=== PATIENT | female | born 1955 | race Caucasian/White ===

== ENCOUNTER 2018-06-28 14:00 | Inpatient (IN) ==
[2018-06-28 14:21] LABS: Basophils % 0.3 %; Eosinophils # 0.3 K/mcL (0.0-0.6); Eosinophils % 2.9 %; Hematocrit 34.7 % (35.3-44.9); Hemoglobin 11.3 g/dL (11.5-15.4); Immature Granulocytes % 0.6 % (0-4); Lymphocytes # 1.8 K/mcL (0.6-4.6); Lymphocytes % 20.8 %; Mean Corpuscular HGB Conc 32.6 g/dL (31.6-35.5); Mean Corpuscular Hemoglobin 29.1 pg (28.0-33.3); Mean Corpuscular Volume 89.4 fL (83.0-100.0); Mean Platelet Volume 8.8 fL (9.4-12.4); Monocytes # 0.8 K/mcL (0.0-1.3); Monocytes % 9.2 %; Neutrophils # 5.8 K/mcL (1.6-8.9); Platelet Count 327 K/mcL (140-400); Red Blood Count 3.88 M/mcL (3.82-4.97); Red Cell Distribution Width 17.2 % (11.5-14.5); Segmented Neutrophils % 66.2 %
[2018-06-28] MEDS ORDERED: *HR* FentaNYL (PF) 100 MCG/2 ML VIAL IVP ONE ×2 (14:30→15:43)
[2018-06-28] MEDS ORDERED: *HR* OxyCODONE Immed Rel 5 MG TABLET PO STA (14:31)
--- NOTE | 2018-06-28 14:41 | Emergency Department Note ---
Disposition Clinical Impression: Fall, Weakness, Humeral fracture Disposition: Admitted As Inpatient Condition: Fair General Adult HPI - General Chief complaint: ED Fall Stated complaint: Fall Time Seen by Provider: 06/28/18 14:03 Source: patient, EMS Limitations: no limitations Nursing Notes Reviewed: Yes Vital Signs Reviewed: Yes - History of Present Illness Pain Scale: 10 - Related Data Home Medications Medication Instructions Recorded Confirmed Apixaban [Eliquis] 5 mg PO BID 06/28/18 06/28/18 Buspirone HCl [Buspar] 15 mg PO BID 06/28/18 06/28/18 Carvedilol 12.5 mg PO BID 06/28/18 06/28/18 Cyclobenzaprine [Flexeril] 10 mg PO BID 06/28/18 06/28/18 HYDROcodone/Acet 7.5/325 mg [[place] 1 tab PO Q6H PRN 06/28/18 06/28/18 7.5-325 mg] LORazepam [Ativan] 1 mg PO BID 06/28/18 06/28/18 Levothyroxine [Synthroid] 50 mcg PO QAM 06/28/18 06/28/18 Lisinopril [Zestril] 5 mg PO DAILY 06/28/18 06/28/18 Pantoprazole Sodium [Protonix] 40 mg PO DAILY 06/28/18 06/28/18 Topiramate [Topamax] 25 mg PO BID 06/28/18 06/28/18 Triamterene/HCTZ 37.5/25mg 1 each PO DAILY 06/28/18 06/28/18 [Dyazide] Venlafaxine [Effexor] 75 mg PO BID 06/28/18 06/28/18 hydrOXYzine HCl [Hydroxyzine HCl] 50 mg PO HS PRN 06/28/18 06/28/18 traZODone [TraZODone] 50 mg PO HS 06/28/18 06/28/18 Allergies Allergy/AdvReac Type Severity Reaction Status Date / Time No Known Allergies Allergy Verified 08/25/17 19:36 Past Medical History - Past Medical History Medical history: Reports: COPD, hypertension, pulmonary embolus Surgical history: Reports: no surgical history Psychiatric history: Reports: no psych history - Social History Smoking Status: 2nd Hand Smoke Exposure Alcohol use: Reports: occasionally, recent Drug use: Reports: none Physical Exam - General Limitations: no limitations General appearance: alert, in no apparent distress Course Vital Signs Temperature 98.4 F 06/28/18 14:03 Pulse Rate 93 06/28/18 14:03 Respiratory Rate 18 06/28/18 14:03 Blood Pressure 127/97 06/28/18 14:03 O2 Sat by Pulse Oximetry 96 06/28/18 14:03 Temperature 98.0 F 06/28/18 19:17 Pulse Rate 84 06/28/18 19:17 Respiratory Rate 17 06/28/18 19:17 Blood Pressure 120/85 06/28/18 19:17 O2 Sat by Pulse Oximetry 95 06/28/18 19:17 Oxygen Delivery Oxygen Delivery Room Air Medical Decision Making - Lab Data Result diagrams: 06/28/18 14:09 06/28/18 14:09 Lab Results 06/28/18 06/28/18 Range/Units 14:09 14:09 WBC 8.8 (4.3-11.1) K/mcL RBC 3.88 (3.82-4.97) M/mcL Hgb 11.3 L (11.5-15.4) g/dL Hct 34.7 L (35.3-44.9) % MCV 89.4 (83.0-100.0) fL MCH 29.1 (28.0-33.3) pg MCHC 32.6 (31.6-35.5) g/dL RDW 17.2 H (11.5-14.5) % Plt Count 327 (140-400) K/mcL MPV 8.8 L (9.4-12.4) fL Immature Gran % 0.6 (0-4) % Seg Neutrophils % 66.2 % Lymphocytes % 20.8 % Monocytes % 9.2 % Eosinophils % 2.9 % Basophils % 0.3 % Neutrophils # 5.8 (1.6-8.9) K/mcL Lymphocytes # 1.8 (0.6-4.6) K/mcL Monocytes # 0.8 (0.0-1.3) K/mcL Eosinophils # 0.3 (0.0-0.6) K/mcL Basophils # 0.0 (0.0-0.2) K/mcL Sodium 128 L (136-145) mEq/L Potassium 3.3 L (3.5-5.1) mEq/L Chloride 96 L (98-107) mEq/L Carbon Dioxide 20 L (23-29) mEq/L BUN 5 L (8-23) mg/dL Creatinine 0.61 (0.60-1.20) mg/dL Est GFR ( Amer) > 60 (> 60) Est GFR (Non-Af Amer) > 60 (> 60) BUN/Creatinine Ratio 8 (6-26) Glucose 113 H (70-105) mg/dL Calculated Osmolality 264 L (280-300) Calcium 9.1 (8.6-10.3) mg/dL Troponin I < 0.03 (< 0.04) ng/mL Attestation Statement - Attestation Attestation: Resident Attestation: I examined this patient and my medical decision making was reviewed with the Resident Physician. I agree with the documented findings, disposition and treatment plan as described except to the extent set forth below. We independently had [id number] contact with the patient. Patient presents today for evaluation after fall. Patient with obvious left shoulder deformity. States that she has been dizzy after taking her blood pressure medications but concerned because her primary care physician wants her to continue taking them. She states she had 1-1/2 beers today. The patient will undergo further workup for both near syncope as well as fall and trauma to the arm. Patient has moderate amounts of pain secondary to obvious left shoulder deformity. No other evidence of trauma. Lungs clear to auscultation bilaterally. X-ray shows humeral shaft fracture with angulation. I did discussed with orthopedics who recommends coaptation splint. This was splinted by both me and the resident with the use of 75 mg of fentanyl for pain control. Patient tolerated splinting well. Was really evaluated afterwards and was neurovascularly intact with intact men's designer strength as well as radial pulse, cap refill, sensation equal bilaterally. Please see resident note for further details and disposition.
[2018-06-28 14:48] LABS: BUN/Creatinine Ratio 8 (6-26); Blood Urea Nitrogen 5 mg/dL (8-23); Calcium 9.1 mg/dL (8.6-10.3); Carbon Dioxide 20 mEq/L (23-29); Chloride 96 mEq/L (98-107); Glucose 113 mg/dL (70-105); Osmolality,Calculated 264 (280-300); Potassium 3.3 mEq/L (3.5-5.1); Sodium 128 mEq/L (136-145); eGFR For Non-African Americans > 60 (> 60)
[2018-06-28 14:49] LABS: Troponin I < 0.03 ng/mL (< 0.04)
--- NOTE | 2018-06-28 14:56 | Emergency Department Note ---
Disposition Clinical Impression: Weakness Fall Qualifiers: Encounter type: initial encounter Qualified Code(s): W19.XXXA - Unspecified fall, initial encounter Humeral fracture Qualifiers: Encounter type: initial encounter Humerus Location: shaft Fracture type: closed Fracture morphology: unspecified fracture morphology Laterality: left Qualified Code(s): S42.302A - Unspecified fracture of shaft of humerus, left arm , initial encounter for closed fracture Disposition: Admitted As Inpatient Condition: Fair Forms: ED Satisfaction Letter General Adult HPI - General Chief complaint: ED Fall Stated complaint: Fall Time Seen by Provider: 06/28/18 14:03 Source: patient, EMS Mode of arrival: EMS Limitations: no limitations Nursing Notes Reviewed: Yes Vital Signs Reviewed: Yes - History of Present Illness HPI Narrative: 62-year-old female presenting to the emergency department with chief complaint of fall. According to the patient she stood up and started walking she grabbed a banister lost her footing, felt weak and fell. She denies hitting her head although she has an obvious ecchymosis on the left frontal area. Patient states her only complaint is left shoulder pain. She denies any abdominal pain , dizziness, headache. Patient states she is on anticoagulation. Patient did disclose to EMS that she had one and a half beers today. Patient denies any chest pain, shortness of breath before the incident. She states she has had multiple episodes of feeling weak due to her blood pressure medications. She states her primary care physician is aware of this and has not decreased her medications. Pain Scale: 10 - Related Data Previous Rx's Medication Instructions Recorded Famotidine [Pepcid] 20 mg PO BID #30 tablet 08/25/17 Ferrous Gluconate 324 mg PO BID #60 tablet 08/25/17 Allergies Allergy/AdvReac Type Severity Reaction Status Date / Time No Known Allergies Allergy Verified 08/25/17 19:36 All systems ED: reviewed and negative except as stated. Constitutional: Reports: weakness. Denies: fever, chills Eyes: Reports: as per HPI ENT ED: Reports: as per HPI Cardiovascular: Denies: chest pain, palpitations, dyspnea on exertion Respiratory: Denies: cough, dyspnea, wheezes Gastrointestinal: Denies: abdominal pain, nausea, vomiting Genitourinary: Reports: as per HPI Musculoskeletal: Reports: arthralgia, myalgia Integumentary: Reports: other (ecchymosis) Neurological: Reports: weakness. Denies: numbness, paresthesias Psychiatric: Reports: as per HPI Endocrine: Reports: as per HPI Hematological/Lymphatic: Reports: as per HPI Allergic/Immunologic: Reports: as per HPI Past Medical History - Past Medical History Attestation: Yes The following information was validated with the patient. Medical history: Reports: COPD, hypertension, pulmonary embolus Surgical history: Reports: no surgical history Psychiatric history: Reports: no psych history - Social History Smoking Status: 2nd Hand Smoke Exposure Alcohol use: Reports: occasionally, recent Drug use: Reports: none Physical Exam - General Limitations: no limitations General appearance: alert, in no apparent distress - Head Head exam: normocephalic, other (Hematoma noted over the left frontal area) - Eye Eye exam: Present: normal appearance, PERRL, EOMI. Absent: scleral icterus, conjunctival injection - ENT ENT exam: normal exam, mucous membranes moist - Neck Neck exam: Present: normal inspection, full ROM. Absent: tenderness, meningismus - Chest Chest inspection: Present: normal inspection, symmetric chest wall rise. Absent : tenderness, rash - Respiratory Respiratory exam: Present: normal lung sounds bilaterally. Absent: respiratory distress, wheezes - Cardiovascular Cardiovascular exam: Present: regular rate, normal rhythm, normal heart sounds - Abdominal Exam Abdominal exam: Present: soft, Non-Tender. Absent: distention, guarding, rebound - Extremities Exam Extremities exam: Present: other (Patient's left upper extremity tenderness to palpation from the shoulder all the way to the wrist. Bilateral upper extremities neurovascularly intact. Patient able to wiggle fingers on both sides.) - Neurological Exam Neurological exam: Present: alert - Psychiatric Psychiatric exam: Present: normal affect, normal mood - Skin Skin exam: Present: warm Course Course Narrative: 62-year-old female presenting after a fall. She states she felt weakness before the fall. She denies hitting her head although the patient does have a hematoma on the left frontal area. She currently is on anticoagulation. Patient also stating she has severe left arm pain. At this time we will obtain a CT of the head and cervical spine. We will also obtain x-rays of the left upper extremity. No other areas of tenderness on exam. We will obtain basic laboratory analysis along with an EKG and a troponin due to patient's weakness before the fall. Disposition pending results. Patient is alert and oriented 3 in the room with stable vital signs. Patient agrees with this plan. - Reevaluation(s) Reevaluation #1: Laboratory analysis so chronic hyponatemia. Also hypokalemia. We will replete orally. Otherwise labs WNL. Patient's radiographs show Angulated fracture of the midshaft of the left humerus. No acute abnormalities seen in the left wrist I spoke with the orthopedic surgeon industrial methods consultant Dr. Hitchcock who would like us to place a coadaptation splint on the patient. He will consult on the patient as well while she is admitted. At this time we will plan to splint the left arm and admit her for further evaluation. Patient remains alert and oriented x 3 with stable vital signs. Patient agrees with this plan. I spoke with the hospitalist industrial methods consultant Dr. Yun who agrees to accept the patient at this time. Vital Signs Temperature 98.4 F 06/28/18 14:03 Pulse Rate 93 06/28/18 14:03 Respiratory Rate 18 06/28/18 14:03 Blood Pressure 127/97 06/28/18 14:03 O2 Sat by Pulse Oximetry 96 06/28/18 14:03 Temperature 98.4 F 06/28/18 14:03 Pulse Rate 100 06/28/18 15:37 Respiratory Rate 16 06/28/18 15:37 Blood Pressure 115/73 06/28/18 15:37 O2 Sat by Pulse Oximetry 96 06/28/18 15:37 Oxygen Delivery Oxygen Delivery Room Air Medical Decision Making - Lab Data Result diagrams: 06/28/18 14:09 06/28/18 14:09 Lab Results 06/28/18 06/28/18 Range/Units 14:09 14:09 WBC 8.8 (4.3-11.1) K/mcL RBC 3.88 (3.82-4.97) M/mcL Hgb 11.3 L (11.5-15.4) g/dL Hct 34.7 L (35.3-44.9) % MCV 89.4 (83.0-100.0) fL MCH 29.1 (28.0-33.3) pg MCHC 32.6 (31.6-35.5) g/dL RDW 17.2 H (11.5-14.5) % Plt Count 327 (140-400) K/mcL MPV 8.8 L (9.4-12.4) fL Immature Gran % 0.6 (0-4) % Seg Neutrophils % 66.2 % Lymphocytes % 20.8 % Monocytes % 9.2 % Eosinophils % 2.9 % Basophils % 0.3 % Neutrophils # 5.8 (1.6-8.9) K/mcL Lymphocytes # 1.8 (0.6-4.6) K/mcL Monocytes # 0.8 (0.0-1.3) K/mcL Eosinophils # 0.3 (0.0-0.6) K/mcL Basophils # 0.0 (0.0-0.2) K/mcL Sodium 128 L (136-145) mEq/L Potassium 3.3 L (3.5-5.1) mEq/L Chloride 96 L (98-107) mEq/L Carbon Dioxide 20 L (23-29) mEq/L BUN 5 L (8-23) mg/dL Creatinine 0.61 (0.60-1.20) mg/dL Est GFR ( Amer) > 60 (> 60) Est GFR (Non-Af Amer) > 60 (> 60) BUN/Creatinine Ratio 8 (6-26) Glucose 113 H (70-105) mg/dL Calculated Osmolality 264 L (280-300) Calcium 9.1 (8.6-10.3) mg/dL Troponin I < 0.03 (< 0.04) ng/mL
[2018-06-28] MEDS ORDERED: Naloxone 0.4 MG/ML INJ IVP PRN ×2 (16:26→16:30)
[2018-06-28] MEDS ORDERED: 0.9 % Sodium Chloride 1,000 ML IVC SCH (16:30)
[2018-06-28] MEDS ORDERED: traMADol 50 MG TABLET PO PRN (16:30)
[2018-06-28] MEDS ORDERED: Acetaminophen 325 MG TABLET PO PRN (16:30)
--- NOTE | 2018-06-28 16:47 | Internal Med History&Physical ---
Date of Encounter: 06/28/18 Time of Encounter: 18:00 Internal Medicine - H&P: HPI History of present illness: Ms. Tellez is a 62 year old female with history of COPD, HTN, pulmonary embolism on Eliquis presented for fall. Patient stated that she was walking and turned quickly then became dizzy and passed out. She denies hitting her head. She denies any headache, change in vision, nausea/vomiting, diaphoresis, loss of bladder control, chest pain, shortness of breath. She fell on her left shoulder. She is on several ACID TANK LINER depressant medications but states she has not had any medication changes since March. In the ED she was found to have serum sodium low at 128, which was the same level she had one year ago. Chloride was also low at 96. Troponin was negative. CT of head without contrast showed no acute findings. An x-rays of the left arm showed an angulated fracture of the midshaft of the left humerus. A splint was placed on her arm and Orthopedic Surgery was consulted. Past Med Surg Social Fam HX - Past Medical History Medical history: COPD, hypertension, pulmonary embolus Psychiatric history: no psych history - Past Surgical History Surgical History: no surgical history - Social History Smoking Status: 2nd Hand Smoke Exposure Alcohol use: occasionally, recent Drug use: none - Family History Mother Hx Family Cancer: Yes (skin) Internal Medicine - H&P: Meds Apixaban [Eliquis] 5 mg PO BID 06/28/18 [History] Buspirone HCl [Buspar] 15 mg PO BID 06/28/18 [History] Carvedilol 12.5 mg PO BID 06/28/18 [History] Cyclobenzaprine [Flexeril] 10 mg PO BID 06/28/18 [History] HYDROcodone/Acet 7.5/325 mg [[place] 7.5-325 mg] 1 tab PO Q6H PRN 06/28/18 [ History] LORazepam [Ativan] 1 mg PO BID 06/28/18 [History] Levothyroxine [Synthroid] 50 mcg PO QAM 06/28/18 [History] Lisinopril [Zestril] 5 mg PO DAILY 06/28/18 [History] Pantoprazole Sodium [Protonix] 40 mg PO DAILY 06/28/18 [History] Topiramate [Topamax] 25 mg PO BID 06/28/18 [History] Triamterene/HCTZ 37.5/25mg [D[place]az[place]] 1 each PO DAILY 06/28/18 [History] Venlafaxine [Effexor] 75 mg PO BID 06/28/18 [History] hydrOXYzine HCl [Hydroxyzine HCl] 50 mg PO HS PRN 06/28/18 [History] traZODone [TraZODone] 50 mg PO HS 06/28/18 [History] 3 Allergy/AdvReac Type Severity Reaction Status Date / Time No Known Allergies Allergy Verified 08/25/17 19:36 All Systems PM: A 10-system review of systems was performed and is negative for pertinent findings except as documented above in the HPI. - Constitutional Vitals: Temp Pulse Resp BP Pulse Ox 98.4 F 100 16 115/73 96 06/28/18 14:03 06/28/18 15:37 06/28/18 15:37 06/28/18 15:37 06/28/18 15:37 General appearance: Present: A&O X 3, obese Exam: . - Head Head exam: Present: atraumatic, normocephalic - Eye Eye exam: Present: PERRL, conjuntiva pink, sclera anicteric Pupils: Present: PERRL - Neck Neck exam general surgery: Present: supple, trachea midline. Absent: lymphadenopathy - Respiratory Respiratory exam: Present: CTAB. Absent: accessory muscle use, rales, rhonchi, wheezes - Cardiovascular Cardiovascular exam: Present: RRR, +S1, +S2. Absent: diastolic murmur, gallop, rubs, systolic murmur - GI/Abdominal GI/Abdominal exam: Present: normal bowel sounds, soft, no peritoneal signs. Absent: distended, tenderness - Extremities Exam Extremities exam: Present: warm, radial pulses palpable and symmetrical. Absent : calf tenderness, cyanotic, pedal edema Additional comments: Left arm in splint, normal sensation of fingers, no edema, ROM normal. - Neurological Exam Neurological exam: Present: CN II-XII intact, oriented X3, no focal deficits. Absent: pronater drift, facial droop, speech deficit - Skin Skin exam: Present: dry, intact Internal Med - H&P Results - Labs CBC & Chem 7: 06/28/18 14:09 06/28/18 14:09 - Assessment and plan (1) Syncope Current Visit: Yes Status: Acute Assessment and plan: This could be multifactorial likely from hyponatremia and polypharmacy. Sodium is 128, unsure what her baseline is but her serum sodium one year ago was 128 as well. She takes many ACID TANK LINER depressant medications as well. CT head was negative for acute process, troponin negative. She is currently asymptomatic. There is low suspicion for PE as he is not hypoxic, no dyspnea, and no tachypnea , she takes Eliquis at home. - Echocardiogram - Carotid ultrasound - Monitor on telemetry - Orthostatic vital signs - Gentle IV fluid hydration and recheck sodium levels in AM. Will not try to overcorrect too fast since she may be a chronic hyponatremic patient. Qualifiers: Syncope type: unspecified Qualified Code(s): R55 - Syncope and collapse (2) Hypertension Current Visit: Yes Status: Acute Assessment and plan: Resume Coreg Hold triamterene/HCTZ due to hyponatremia Will need PRN medication since HCTZ needs held Qualifiers: Hypertension type: essential hypertension Qualified Code(s): I10 - Essential (primary) hypertension (3) History of pulmonary embolism Current Visit: Yes Status: Acute Assessment and plan: Will need to hold Eliquis in case surgery needs done. If no surgery needs done then resume Eliquis. Will start heparin 5,000 units SQ Q8H for now. (4) Hyponatremia Current Visit: Yes Status: Acute Assessment and plan: Likely from multiple medications that may cause hyponatremia. Cannot excluse acute hyponatremia Will obtain urine studies and also give gentle IV hydration with normal saline at 75 ml/hr and recheck in AM. Will hold trazodone and hold HCTZ/Triamterine. May need to continue Topamax since she takes this regularly and continue the antidepressants to avoid withdrawal. (5) Humeral fracture Current Visit: Yes Status: Acute Assessment and plan: Patient splinted in ED. Orthopedic Surgery consulted, recommendations appreciated Continue pain management Qualifiers: Encounter type: initial encounter Humerus Location: shaft Fracture type: closed Fracture morphology: unspecified fracture morphology Laterality: left Qualified Code(s): S42.302A - Unspecified fracture of shaft of humerus, left arm, initial encounter for closed fracture (6) Weakness Current Visit: Yes Status: Acute Assessment and plan: PT/OT when able. (7) DVT prophylaxis Current Visit: Yes Status: Acute Assessment and plan: Heparin 5,000 units Q8H. If no planned surgery, then will restart Eliquis. - Time Spent With Patient Total time spent is greater than 50% in coordination of care (as documented) at patient's floor/unit and/or counseling patient:
[2018-06-28 21:01] LABS: Creatinine,Urine 112 mg/dL; Sodium, Urine < 10.0 mEq/L
[2018-06-28] MEDS: *HR* Heparin 5,000 UNIT/ML VIAL SQ SCH (21:08)
[2018-06-28] MEDS: Topiramate 25 MG TABLET PO SCH (21:08)
[2018-06-28] MEDS: OXYCODONE Oral CONC 10 MG/0.5 ML ORAL.SYG SL PRN (21:09)
[2018-06-28] MEDS: *HR* LORazepam 1 MG TABLET PO SCH (21:09)
[2018-06-29 01:02] LABS: Basophils % 0.3 %; Eosinophils # 0.1 K/mcL (0.0-0.6); Eosinophils % 1.8 %; Hematocrit 33.3 % (35.3-44.9); Hemoglobin 10.8 g/dL (11.5-15.4); Immature Granulocytes % 0.3 % (0-4); Lymphocytes # 1.5 K/mcL (0.6-4.6); Lymphocytes % 19.7 %; Mean Corpuscular HGB Conc 32.4 g/dL (31.6-35.5); Mean Corpuscular Hemoglobin 28.9 pg (28.0-33.3); Monocytes # 0.7 K/mcL (0.0-1.3); Platelet Count 297 K/mcL (140-400); Red Blood Count 3.74 M/mcL (3.82-4.97); Red Cell Distribution Width 17.2 % (11.5-14.5); Segmented Neutrophils % 67.9 %
[2018-06-29 01:21] LABS: BUN/Creatinine Ratio 11 (6-26); Blood Urea Nitrogen 6 mg/dL (8-23); Calcium 8.9 mg/dL (8.6-10.3); Carbon Dioxide 22 mEq/L (23-29); Chloride 98 mEq/L (98-107); Glucose 115 mg/dL (70-105); Osmolality,Calculated 265 (280-300); Potassium 3.8 mEq/L (3.5-5.1); Sodium 128 mEq/L (136-145); eGFR For Non-African Americans > 60 (> 60)
[2018-06-29] MEDS: *HR* Heparin 5,000 UNIT/ML VIAL SQ SCH ×2 (05:25→14:52)
[2018-06-29] MEDS: OXYCODONE Oral CONC 10 MG/0.5 ML ORAL.SYG SL PRN ×3 (05:26→23:52)
--- NOTE | 2018-06-29 06:43 | Orthopedic Consult Note ---
Date of Encounter: 06/29/18 Time of Encounter: 06:42 History of Present Illness HPI: Ms. Tellez is a 62 year old female Status post fall yesterday in the left arm, patient is right-hand dominant. Patient admitted with a displaced left humeral shaft fracture. Physical exam Alert and oriented 3 Left upper extremity In splint Neurovascular intact distally X-rays reviewed show displaced fracture, recommendation left humerus open reduction internal fixation. We reviewed the risks and benefits as well as recovery. All questions were answered. The patient agreed to this treatment plan and appeared to understand the plan is reviewed. Past Med Surg Social Fam HX - Past Medical History Medical history: COPD, hypertension, pulmonary embolus Additional medical history: tachycardia Psychiatric history: no psych history - Past Surgical History Surgical History: no surgical history Additional surgical history: Tonsillectomy - Social History Smoking Status: 2nd Hand Smoke Exposure Smokeless Tobacco Status: No Alcohol use: occasionally, recent Drug use: none - Family History Mother Hx Family Cancer: Yes (skin) Medications and Allergies Apixaban [Eliquis] 5 mg PO BID 06/28/18 [History] Buspirone HCl [Buspar] 15 mg PO BID 06/28/18 [History] Carvedilol 12.5 mg PO BID 06/28/18 [History] Cyclobenzaprine [Flexeril] 10 mg PO BID 06/28/18 [History] HYDROcodone/Acet 7.5/325 mg [[place] 7.5-325 mg] 1 tab PO Q6H PRN 06/28/18 [ History] LORazepam [Ativan] 1 mg PO BID 06/28/18 [History] Levothyroxine [Synthroid] 50 mcg PO QAM 06/28/18 [History] Lisinopril [Zestril] 5 mg PO DAILY 06/28/18 [History] Pantoprazole Sodium [Protonix] 40 mg PO DAILY 06/28/18 [History] Topiramate [Topamax] 25 mg PO BID 06/28/18 [History] Triamterene/HCTZ 37.5/25mg [Dyazide] 1 each PO DAILY 06/28/18 [History] Venlafaxine [Effexor] 75 mg PO BID 06/28/18 [History] hydrOXYzine HCl [Hydroxyzine HCl] 50 mg PO HS PRN 06/28/18 [History] traZODone [TraZODone] 50 mg PO HS 06/28/18 [History] 3 Allergy/AdvReac Type Severity Reaction Status Date / Time No Known Allergies Allergy Verified 08/25/17 19:36 All Systems Reviewed: The remainder of the systems were reviewed and are negative Physical Exam - Constitutional Vitals: Temp Pulse Resp BP Pulse Ox 98.0 F 105 16 136/97 95 06/29/18 04:17 06/29/18 04:17 06/29/18 04:17 06/29/18 04:17 06/29/18 04:17 Results - Labs Result Diagrams: 06/29/18 00:43 06/29/18 00:43 Labs: Abnormal lab results RBC 3.74 M/mcL (3.82-4.97) L 06/29/18 00:43 Hgb 10.8 g/dL (11.5-15.4) L 06/29/18 00:43 Hct 33.3 % (35.3-44.9) L 06/29/18 00:43 RDW 17.2 % (11.5-14.5) H 06/29/18 00:43 MPV 9.0 fL (9.4-12.4) L 06/29/18 00:43 Sodium 128 mEq/L (136-145) L 06/29/18 00:43 Carbon Dioxide 22 mEq/L (23-29) L 06/29/18 00:43 BUN 6 mg/dL (8-23) L 06/29/18 00:43 Creatinine 0.57 mg/dL (0.60-1.20) L 06/29/18 00:43 Glucose 115 mg/dL (70-105) H 06/29/18 00:43 Calculated Osmolality 265 (280-300) L 06/29/18 00:43 H & H 06/29/18 Range/Units 00:43 Hgb 10.8 L (11.5-15.4) g/dL Hct 33.3 L (35.3-44.9) % All other labs normal. Consult Discharge Plan - Plan Referrals: Conner San MD [Primary Care Provider] - Ignacio Pandey [Family Provider] -
[2018-06-29] MEDS: *HR* LORazepam 1 MG TABLET PO SCH ×3 (12:34→22:55)
[2018-06-29] MEDS: Topiramate 25 MG TABLET PO SCH ×2 (12:34→22:55)
--- NOTE | 2018-06-29 13:05 | Anesthesia Evaluation PreOp ---
Date of Encounter: 06/29/18 Time of Encounter: 12:58 - Past History Planned Operation: ORIF Left Proximal Humerus Cardiac History: Other (Hx PE) Pulmonary History: COPD, Other (HX PE) CHIEF MINISTER History: Denies Any Significant HX Other Medical History: Denies Any Significant HX Anesthesia History: No Prior Anesthetic Complications, Past Anesthesia (none) : No Alcohol Use: occasionally, recent Drug use: none Medications and Allergies Apixaban [Eliquis] 5 mg PO BID 06/28/18 [History] Buspirone HCl [Buspar] 15 mg PO BID 06/28/18 [History] Carvedilol 12.5 mg PO BID 06/28/18 [History] Cyclobenzaprine [Flexeril] 10 mg PO BID 06/28/18 [History] HYDROcodone/Acet 7.5/325 mg [[place] 7.5-325 mg] 1 tab PO Q6H PRN 06/28/18 [ History] LORazepam [Ativan] 1 mg PO BID 06/28/18 [History] Levothyroxine [Synthroid] 50 mcg PO QAM 06/28/18 [History] Lisinopril [Zestril] 5 mg PO DAILY 06/28/18 [History] Pantoprazole Sodium [Protonix] 40 mg PO DAILY 06/28/18 [History] Topiramate [Topamax] 25 mg PO BID 06/28/18 [History] Triamterene/HCTZ 37.5/25mg [Dyazide] 1 each PO DAILY 06/28/18 [History] Venlafaxine [Effexor] 75 mg PO BID 06/28/18 [History] hydrOXYzine HCl [Hydroxyzine HCl] 50 mg PO HS PRN 06/28/18 [History] traZODone [TraZODone] 50 mg PO HS 06/28/18 [History] 3 Allergy/AdvReac Type Severity Reaction Status Date / Time No Known Allergies Allergy Verified 08/25/17 19:36 - Meds/Allergy Pre-op Review Medications Reviewed: Yes Allergies Reviewed: Yes Beta Blockers on Current Med List: Yes If Beta Blockers taken, Date/Time (Last Dose taken): 08:41 06/29/2018 Anesthesia Results - Labs 06/29/18 00:43 06/29/18 00:43 - Imaging EKG: report reviewed (SR) Anesthesia Exam Vital Signs/O2 Sat, Most Current Temp Pulse Resp BP Pulse Ox 97.6 F 94 16 115/79 93 06/29/18 11:14 06/29/18 11:14 06/29/18 11:14 06/29/18 11:14 06/29/18 11:14
--- NOTE | 2018-06-29 14:59 | Internal Med Progress Note ---
Hospitalist Progress Note - Encounter Date of Encounter: 06/29/18 Time of Encounter: 16:34 - Subjective Interval History: No acute events overnight. - Exam Vitals: Temp Pulse Resp BP Pulse Ox 97.8 F 99 18 110/75 95 06/29/18 14:44 06/29/18 14:44 06/29/18 14:44 06/29/18 14:44 06/29/18 14:44 Exam: Gen: NAD CVS: RRR Lungs: CTAB Ext: left arm in splint, normal sensation of fingers, no edema, ROM normal. - Assessment and Plan (1) Syncope Current Visit: Yes Status: Acute Assessment and Plan: This could be multifactorial likely from hyponatremia and polypharmacy. Sodium is 128, unsure what her baseline is but her serum sodium one year ago was 128 as well. 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 CT head was negative for acute process, troponin negative. She is currently asymptomatic. There is low suspicion for PE as he is not hypoxic, no dyspnea, and no tachypnea , she takes Eliquis at home. Rechecking Sodium today looks stable at 128 likely this is chronic. - Echocardiogram - Normal LVEF 60-65%, no valvular abnormalities, normal LV chamber size, thickness and function. - Carotid ultrasound - Negative - Monitor on telemetry - no abnormal rhythms noted - Orthostatic vital signs (2) Hypertension Current Visit: Yes Status: Acute Assessment and Plan: Resume Coreg Hold triamterene/HCTZ due to hyponatremia Will need PRN medication since HCTZ needs held Sodium 128 on admission and today is 128 despite IV fluid, suggesting chronic. As well as prior labs showing similar sodium levels. (3) History of pulmonary embolism Current Visit: Yes Status: Acute Assessment and Plan: Will need to hold Eliquis because of anticipated upcoming surgery. Will start heparin 5,000 units SQ Q8H for now. (4) Hyponatremia Current Visit: Yes Status: Acute Assessment and Plan: Likely from multiple medications that may cause hyponatremia. Cannot excluse acute hyponatremia Will obtain urine studies and also give gentle IV hydration with normal saline at 75 ml/hr and recheck in AM. Will hold trazodone and hold HCTZ/Triamterine. May need to continue Topamax since she takes this regularly and continue the antidepressants to avoid withdrawal. (5) Humeral fracture Current Visit: Yes Status: Acute Assessment and Plan: Patient splinted in ED. Orthopedic Surgery consulted, recommendations appreciated Continue pain management Reviewed echocardiogram, discussed METS with patient, evaluated surgical risk: Patient is clear for surgery (6) Weakness Current Visit: Yes Status: Acute Assessment and Plan: PT/OT when able. (7) DVT prophylaxis Current Visit: Yes Status: Acute Assessment and Plan: Heparin 5,000 units Q8H. If no planned surgery, then will restart Eliquis. - Time Spent with Patient Total time spent is greater than 50% in coordination of care (as documented) at patient's floor/unit and/or counseling patient: Internal Medicine: Result - Labs CBC & Chem 7: 06/29/18 00:43 06/29/18 00:43 Labs: Short CBC 06/29/18 Range/Units 00:43 WBC 7.4 (4.3-11.1) K/mcL Hgb 10.8 L (11.5-15.4) g/dL Hct 33.3 L (35.3-44.9) % Plt Count 297 (140-400) K/mcL Neutrophils # 5.0 (1.6-8.9) K/mcL BMP 06/29/18 00:43 Sodium 128 L Potassium 3.8 Chloride 98 Carbon Dioxide 22 L BUN 6 L Creatinine 0.57 L Glucose 115 H Calcium 8.9 - Impressions Impressions Echocardiogram 06/29/18 18:25 Impressions: Technically sub-optimal due to poor echocardiographic windows. LVEF 60-65%. Normal LV chamber size, wall thickness and function. Indeterminate diastolic function. Normal right ventricular structure and function. Unable to estimate RVSP due to lack of TR jet. No significant valvular dysfunction. Left Ventricular Wall Motion: Rest Echo Findings All wall segments showed normal motion. Findings: Study Quality * Technically sub-optimal due to poor echocardiographic windows. ECG Findings * Probable normal sinus rhythm. Left Ventricle * LVEF 60-65%. * Normal LV chamber size, wall thickness and function. * Indeterminate diastolic function. Right Ventricle * Normal right ventricular structure and function. Right Atrium * Mildly dilated right atrium. Aortic Valve * Aortic valve not well visualized. * No aortic regurgitation. * No aortic stenosis. Mitral Valve * Normal mitral valve structure and function. * No mitral regurgitation. * No mitral stenosis. Tricuspid Valve * Normal tricuspid valve structure and function. * No tricuspid regurgitation. * Unable to estimate RVSP due to lack of TR jet. Pulmonic Valve * Pulmonic valve is not well visualized. Aorta * Normally sized aortic root. Pericardium * The pericardium appears normal. IVC * Normal IVC dimensions and inspiratory collapse. Pulmonary Artery * Normal visualized portions of the main pulmonary artery. Left Atrium * Mildly dilated left atrium. Consult Discharge Plan - Plan Referrals: Conner San MD [Primary Care Provider] - Ignacio Pandey [Family Provider] - (1) Syncope Qualifiers: Syncope type: unspecified Qualified Code(s): R55 - Syncope and collapse (2) Hypertension Qualifiers: Hypertension type: essential hypertension Qualified Code(s): I10 - Essential (primary) hypertension (5) Humeral fracture Qualifiers: Encounter type: initial encounter Humerus Location: shaft Fracture type: closed Fracture morphology: unspecified fracture morphology Laterality: left Qualified Code(s): S42.302A - Unspecified fracture of shaft of humerus, left arm , initial encounter for closed fracture
[2018-06-29] MEDS ORDERED: *HR* FentaNYL (PF) 100 MCG/2 ML VIAL ONE (17:34)
[2018-06-29] MEDS ORDERED: *HR* Midazolam HCl 2 MG/2 ML VIAL ONE (17:34)
[2018-06-29] MEDS ORDERED: Lidocaine -MPF 2% 2 ML VIAL ONE (17:34)
[2018-06-29] MEDS ORDERED: *HR* Succinylcholine 200 MG/10 ML VIAL IVP ONE (17:34)
[2018-06-29] MEDS ORDERED: *HR* Propofol 200 MG/20 ML VIAL IVP ONE (17:35)
[2018-06-29] MEDS ORDERED: ROPIVACAINE HCL/PF 0.5% 30 ML VIAL ONE (17:36)
[2018-06-29] MEDS ORDERED: Ondansetron 4 MG/2 ML VIAL ONE (18:13)
[2018-06-29] MEDS ORDERED: Dexamethasone 4 MG/ML VIAL ONE (18:13)
[2018-06-29] MEDS ORDERED: *HR* OxyCODONE Immed Rel 5 MG TABLET PO PRN (18:34)
[2018-06-29] MEDS ORDERED: Acetaminophen IV 1,000 MG/100 ML INFUS..BTL IVPB ONE (18:34)
[2018-06-29] MEDS ORDERED: Ondansetron 4 MG/2 ML VIAL IVP ONE (18:34)
[2018-06-29] MEDS ORDERED: *HR* Promethazine 25 MG/ML VIAL IVP PRN (18:34)
--- NOTE | 2018-06-29 19:14 | Orthopedic Operative Note ---
Date of procedure: 06/29/18 Pre-op diagnosis: Displaced comminuted left humeral shaft fracture Post-op diagnosis: same Procedure: Procedure: Left open reduction internal fixation humeral shaft fracture Estimated blood loss: 100 cc Hardware: Synthes 8 hole proximal humeral locking plate, 12 3.5 locking and cortical screws. 4 Arthrex cerclage fiber tapes Procedural Notes: Displaced comminuted fracture left midshaft humerus. Operative procedure: The patient was brought to the operating room and placed on the operating room table. After general anesthesia was administered the operative arm was prepped and draped in the sterile surgical fashion The patient received IV antibiotics prior to skin incision. A standard extended deltopectoral approach was made to the humerus, the incision is made to the skin and subcutaneous tissue. Hemostasis was obtained with Bovie cautery. Using careful blunt dissection the deltopectoral interval was developed, exposing the fracture site. Patient had a large butterfly fragment, this was fixed to the proximal fragment with 2 Arthrex cerclage fiber tapes under direct vision. This construct was then reduced to the distal fragment and fixed with an additional 2 Arthrex cerclage fiber tapes. An 8 hole Synthes proximal humeral locking plate was approximated to the anterolateral surface. It was fixed on either side of the fracture with cortical screws, fixation was completed with a combination of locking and cortical screws both proximally and distally. These were done under fluoroscopic assistance. Position of the hardware as well as fracture reduction was found to be acceptable on direct visualization and fluoroscopic confirmation. The wound was irrigated the PA close the shoulder, the deltopectoral closed with a running #1 PDS suture case tissues irrigated and closed deep with 0 PDS suture superficially with 0 PDS suture was closed with Dermabond patient was sterile dressing and posterior splint The patient was extubated, and then transferred to the recovery room in stable condition. Anesthesia: GETA Surgeon: Jeffy Gillis Was there an assistant community director present: No Estimated blood loss (cc): 100 Condition: stable Disposition: PACU
--- NOTE | 2018-06-29 20:15 | Anesthesia Evaluation Post Op ---
Date of Encounter: 06/29/18 Time of Encounter: 20:15 - Vital Signs Vital Signs: Vital Signs/O2 Sat, Most Current Temp Pulse Resp BP Pulse Ox 98.1 F 92 16 118/78 95 06/29/18 20:13 06/29/18 20:13 06/29/18 20:13 06/29/18 20:13 06/29/18 20:13 - Lungs Lungs: Clear Ascult./Percussion - Airway Airway: Non-obstructed - Cardiovascular Regular Rate - Mental Status Mental Status: Asleep with brisk response to light stimulation - Pain Pain Scale: 0 Pain Scale used: Numeric (1 - 10) - Nausea Vomiting Nausea Vomiting: Not Present - Hydration Hydration: NPO - Discharge PostOp Status: Transfer Patient to floor
[2018-06-29 20:37] LABS: Hemoglobin 11.5 g/dL (11.5-15.4)
[2018-06-29] MEDS ORDERED: Ringers Solution, Lactated 1,000 ML IVC SCH (20:52)
[2018-06-29] MEDS ORDERED: Sennosides 8.6 MG TABLET PO PRN (20:52)
[2018-06-29] MEDS ORDERED: Temazepam 15 MG CAPSULE PO PRN (20:52)
[2018-06-29] MEDS ORDERED: Ondansetron 4 MG/2 ML VIAL IVP PRN (20:52)
[2018-06-29] MEDS ORDERED: Naloxone 0.4 MG/ML INJ IVP PRN ×2 (20:52)
[2018-06-29] MEDS ORDERED: hydrOXYzine pamoate 25 MG CAPSULE PO PRN (20:52)
[2018-06-29] MEDS ORDERED: Acetaminophen 325 MG TABLET PO PRN (20:52)
[2018-06-29] MEDS ORDERED: MOM Conc 10 ML UD.LIQ PO PRN (20:52)
[2018-06-29] MEDS: Apixaban 5 MG TABLET PO SCH (22:55)
[2018-06-30 02:24] LABS: Hematocrit 32.4 % (35.3-44.9); Hemoglobin 10.4 g/dL (11.5-15.4)
--- NOTE | 2018-06-30 06:28 | Orthopedics Progress Note ---
Date of Encounter: 06/30/18 Time of Encounter: 06:28 Subjective Interval history: Patient was seen this morning doing well without complaints. Afebrile vital signs stable. Operative extremity: Neurovascularly intact Dressing clean dry and intact Calves nontender Assessment and plan: Continue with postoperative care Hematocrit 32 stable for discharge Objective Vital signs: Vital Signs Temp Pulse Resp BP Pulse Ox 06/30/18 04:23 98.4 F 109 16 124/88 94 06/29/18 23:47 98.7 F 107 16 131/91 94 06/29/18 23:00 98.4 F 108 16 136/78 100 06/29/18 22:10 98.6 F 106 14 126/76 98 06/29/18 21:45 98.6 F 101 16 124/78 100 06/29/18 21:19 98.5 F 98 17 124/78 97 06/29/18 20:42 98.2 F 98 16 122/84 95 06/29/18 20:13 98.1 F 92 16 118/78 95 06/29/18 20:02 93 14 119/92 95 06/29/18 19:52 100 16 126/87 96 06/29/18 19:42 97.5 F L 103 16 141/102 94 06/29/18 18:00 96 128/94 96 06/29/18 17:53 96 128/104 94 06/29/18 14:44 97.8 F 99 18 110/75 95 06/29/18 11:14 97.6 F 94 16 115/79 93 06/29/18 06:44 98.0 F 96 18 118/90 93 Intake and Output 06/29/18 06/29/18 06/30/18 15:59 23:59 07:59 Intake Total 100 / 100 Output Total 100 / 100 300 / 300 Balance -100 / -100 -200 / -200 Intake: IV Fluids 100 / 100 Ofirmev 1,000 mg/100 ml 1,000 100 / 100 mg In 100 ml @ 400 mls/hr IVPB ONCE ONE Rx#:[id number] Output: Urine 100 / 100 200 / 200 Estimated Blood Loss 100 / 100 Other: # Voids 1 Weight 96.2 kg Patient Weight 06/30/18 23:59 Weight 96.2 kg - Labs CBC & BMP: 06/30/18 01:56 06/29/18 00:43 Labs: Abnormal lab results RBC 3.74 M/mcL (3.82-4.97) L 06/29/18 00:43 Hgb 10.4 g/dL (11.5-15.4) L 06/30/18 01:56 Hct 32.4 % (35.3-44.9) L 06/30/18 01:56 RDW 17.2 % (11.5-14.5) H 06/29/18 00:43 MPV 9.0 fL (9.4-12.4) L 06/29/18 00:43 Sodium 128 mEq/L (136-145) L 06/29/18 00:43 Carbon Dioxide 22 mEq/L (23-29) L 06/29/18 00:43 BUN 6 mg/dL (8-23) L 06/29/18 00:43 Creatinine 0.57 mg/dL (0.60-1.20) L 06/29/18 00:43 Glucose 115 mg/dL (70-105) H 06/29/18 00:43 Calculated Osmolality 265 (280-300) L 06/29/18 00:43 Consult Discharge Plan - Plan Referrals: Conner San MD [Primary Care Provider] - Ignacio Pandey [Family Provider] -
[2018-06-30] MEDS: Topiramate 25 MG TABLET PO SCH ×2 (09:36→23:33)
[2018-06-30] MEDS: *HR* LORazepam 1 MG TABLET PO SCH ×2 (09:37→23:33)
[2018-06-30] MEDS: Apixaban 5 MG TABLET PO SCH ×2 (09:37→23:33)
[2018-06-30] MEDS: OXYCODONE Oral CONC 10 MG/0.5 ML ORAL.SYG SL PRN ×3 (12:06→23:39)
[2018-06-30] MEDS: traMADol 50 MG TABLET PO PRN (15:21)
--- NOTE | 2018-06-30 18:12 | Internal Med Progress Note ---
Hospitalist Progress Note - Encounter Date of Encounter: 06/30/18 Time of Encounter: 18:09 - Subjective Interval History: No acute events overnight. - Exam Vitals: Temp Pulse Resp BP Pulse Ox 97.5 F L 69 17 131/77 95 06/30/18 15:38 06/30/18 15:38 06/30/18 15:38 06/30/18 15:38 06/30/18 15:38 Exam: Gen: NAD CVS: RRR Lungs: CTAB Ext: left arm in splint, normal sensation of fingers, no edema, ROM normal. - Assessment and Plan (1) Humeral fracture Current Visit: Yes Status: Acute Assessment and Plan: Patient splinted in ED. Continue pain management S/P ORIF POD #1, doing well (2) Syncope Current Visit: Yes Status: Acute Assessment and Plan: This could be multifactorial likely from hyponatremia and polypharmacy. Sodium is 128, unsure what her baseline is but her serum sodium one year ago was 128 as well. 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 CT head was negative for acute process, troponin negative. She is currently asymptomatic. There is low suspicion for PE as he is not hypoxic, no dyspnea, and no tachypnea , she takes Eliquis at home. Rechecking Sodium today looks stable at 128 likely this is chronic. - Echocardiogram - Normal LVEF 60-65%, no valvular abnormalities, normal LV chamber size, thickness and function. - Carotid ultrasound - Negative - No abnormal rhythms noted on telemetry Pending placement Upon discharge patient should have the following: - Nephrology follow-up as outpatient for hyponatremia - Neurology follow-up for syncope - Primary care physician follow-up for blood pressure management. (3) Hypertension Current Visit: Yes Status: Acute Assessment and Plan: Resume Coreg Hold triamterene/HCTZ due to hyponatremia Will need PRN medication since HCTZ needs held Sodium 128 on admission and today is 128 despite IV fluid, suggesting chronic. As well as prior labs showing similar sodium levels. (4) History of pulmonary embolism Current Visit: Yes Status: Acute Assessment and Plan: Eliquis resumed (5) Hyponatremia Current Visit: Yes Status: Acute Assessment and Plan: Likely from multiple medications that may cause hyponatremia. Cannot excluse acute hyponatremia Will obtain urine studies and also give gentle IV hydration with normal saline at 75 ml/hr and recheck in AM. Will hold trazodone and hold HCTZ/Triamterine. May need to continue Topamax since she takes this regularly and continue the antidepressants to avoid withdrawal. (6) Weakness Current Visit: Yes Status: Acute Assessment and Plan: PT/OT when able. (7) DVT prophylaxis Current Visit: Yes Status: Acute Assessment and Plan: Heparin 5,000 units Q8H. If no planned surgery, then will restart Eliquis. - Time Spent with Patient Total time spent is greater than 50% in coordination of care (as documented) at patient's floor/unit and/or counseling patient: Internal Medicine: Result - Labs CBC & Chem 7: 06/30/18 01:56 06/29/18 00:43 Labs: Short CBC 06/29/18 06/30/18 Range/Units 19:59 01:56 Hgb 11.5 10.4 L (11.5-15.4) g/dL Hct 37.0 32.4 L (35.3-44.9) % - Impressions Impressions Fluoroscopy 06/29/18 00:00 IMPRESSION: Fluoroscopic imaging obtained for the purpose of surgical procedure. Please see performing physician notes for full detail. D/ / 06/29/2018 22:13:12 Denzel Cox MD / jamil Interpreting Provider: Denzel Cox MD Humerus X-Ray 06/29/18 00:00 IMPRESSION: Fluoroscopic imaging obtained for the purpose of surgical procedure. Please see performing physician notes for full detail. D/ / 06/29/2018 22:13:12 Denzel Cox MD / jamil Interpreting Provider: Denzel Cox MD Shoulder X-Ray 06/29/18 17:02 IMPRESSION: Postoperative left humerus internal fixation. D/ / 06/29/2018 20:40:01 Mauricio Hargrove MD / jamil Interpreting Provider: Mauricio Hargrove MD Consult Discharge Plan - Plan Referrals: Conner San MD [Primary Care Provider] - Ignacio Pandey [Family Provider] - (1) Humeral fracture Qualifiers: Encounter type: initial encounter Humerus Location: shaft Fracture type: closed Fracture morphology: unspecified fracture morphology Laterality: left Qualified Code(s): S42.302A - Unspecified fracture of shaft of humerus, left arm , initial encounter for closed fracture (2) Syncope Qualifiers: Syncope type: unspecified Qualified Code(s): R55 - Syncope and collapse (3) Hypertension Qualifiers: Hypertension type: essential hypertension Qualified Code(s): I10 - Essential (primary) hypertension
[2018-07-01] MEDS: traMADol 50 MG TABLET PO PRN ×3 (01:26→16:30)
[2018-07-01 01:52] LABS: Hematocrit 31.5 % (35.3-44.9); Hemoglobin 9.8 g/dL (11.5-15.4)
[2018-07-01] MEDS: OXYCODONE Oral CONC 10 MG/0.5 ML ORAL.SYG SL PRN ×3 (03:53→13:30)
[2018-07-01] MEDS: Topiramate 25 MG TABLET PO SCH (08:13)
[2018-07-01] MEDS: *HR* LORazepam 1 MG TABLET PO SCH (08:13)
[2018-07-01] MEDS: Apixaban 5 MG TABLET PO SCH (08:14)
--- NOTE | 2018-07-01 11:44 | Discharge Summary ---
- NOTES TO OUTPATIENT PROVIDER Notes to Outpatient Provider: - See a Neurologist in regards to syncope. Please forward this Discharge summary to them. - See a Closing Machine Operator in regards to hyponatremia. - Primary provider to follow-up with blood pressure medications. She states she has dizziness from BP medications. Only Coreg will be continued. Due to her history of PE, she should be on Eliquis. If she continues to be a fall risk, consider discontinuing Eliquis. I will decrease dose to 2.5 mg BID until a decision is made as an outpatient. - Repeat BMP. Current baseline appears to be 128. Date of Encounter: 07/01/18 Time of Encounter: 11:42 - Discharge Diagnosis (1) Syncope Priority: Primary Status: Acute Qualifiers: Syncope type: unspecified Qualified Code(s): R55 - Syncope and collapse (2) Humeral fracture Priority: Secondary Status: Acute Qualifiers: Encounter type: initial encounter Humerus Location: shaft Fracture type: closed Fracture morphology: unspecified fracture morphology Laterality: left Qualified Code(s): S42.302A - Unspecified fracture of shaft of humerus, left arm, initial encounter for closed fracture (3) Hypertension Priority: Secondary Status: Acute Qualifiers: Hypertension type: essential hypertension Qualified Code(s): I10 - Essential (primary) hypertension (4) History of pulmonary embolism Priority: Secondary Status: Acute (5) Hyponatremia Priority: Secondary Status: Acute (6) Weakness Priority: Secondary Status: Acute (7) DVT prophylaxis Priority: Secondary Status: Acute Hospital course: Ms. Tellez is a 62 year old female with history of COPD, HTN, pulmonary embolism on Eliquis presented for fall. Patient stated that she was walking and turned quickly then became dizzy and passed out. She denies hitting her head. She denies any headache, change in vision, nausea/vomiting, diaphoresis, loss of bladder control, chest pain, shortness of breath. She fell on her left shoulder. She is on several FRENCH COMBER depressant medications but states she has not had any medication changes since March. In the ED she was found to have serum sodium low at 128, which was the same level she had one year ago. Chloride was also low at 96. Troponin was negative. CT of head without contrast showed no acute findings. An x-rays of the left arm showed an angulated fracture of the midshaft of the left humerus. A splint was placed on her arm and Orthopedic Surgery was consulted. She underwent left open reduction internal fixation of humeral shaft fracture, tolerated procedure well. For Syncope; an echocardiogram was done that had no abnormalities, telemetry monitoring was uneventful. Rechecking sodium was chronic at 128. Patient had no more episodes of dizziness. She was [facility] to [facility] in stable condition. We are arranging outpatient follow-up with Neurology for syncopal episodes, Nephrology for hyponatremia, and primary care physician should follow-up BP medications. I will decrease Eliquis to 2.5 mg tabs BID for two weeks. Since she is post op she is high risk for having another PE. Should analyze fall risk vs pulmonary embolism in this patient and weather or not to continue Eliquis. - See a Neurologist in regards to syncope. Please forward this Discharge summary to them. - See a Closing Machine Operator in regards to hyponatremia. - Primary provider to follow-up with blood pressure medications. She states she has dizziness from BP medications. Only Coreg will be continued. Due to her history of PE, she should be on Eliquis. If she continues to be a fall risk , consider discontinuing Eliquis. I will decrease dose to 2.5 mg BID until a decision is made as an outpatient. - Repeat BMP. Current baseline appears to be 128. - Time Spent with Patient Total time spent providing and/or coordinating discharge services: - Discharge Medications Prescriptions: HYDROcodone/Acet 7.5/325 mg [[place] 7.5-325 mg] 1 tab PO Q6H PRN 2 Days #8 tablet PRN Reason: Pain Home Medications: Buspirone HCl [Buspar] 15 mg PO BID 06/28/18 [History] Carvedilol 12.5 mg PO BID 06/28/18 [History] Cyclobenzaprine [Flexeril] 10 mg PO BID 06/28/18 [History] LORazepam [Ativan] 1 mg PO BID 06/28/18 [History] Levothyroxine [Synthroid] 50 mcg PO QAM 06/28/18 [History] Pantoprazole Sodium [Protonix] 40 mg PO DAILY 06/28/18 [History] Topiramate [Topamax] 25 mg PO BID 06/28/18 [History] Venlafaxine [Effexor] 75 mg PO BID 06/28/18 [History] hydrOXYzine HCl [Hydroxyzine HCl] 50 mg PO HS PRN 06/28/18 [History] traZODone [TraZODone] 50 mg PO HS 06/28/18 [History] Apixaban [Eliquis] 2.5 mg PO BID #28 tablet 07/01/18 [Rx] Docusate [Colace] 100 mg PO BID capsule 07/01/18 [Rx] HYDROcodone/Acet 7.5/325 mg [[place] 7.5-325 mg] 1 tab PO Q6H PRN 2 Days #8 tablet 07/01/18 [Rx] MOM Conc [MILK OF MAGNESIA conc] 5 ml PO HS PRN [id number] 07/01/18 [Rx] Ondansetron [Zofran] 4 mg IVP Q6HR PRN vial 07/01/18 [Rx] Oxycodone HCl 5 mg PO Q8H PRN 2 Days #6 tablet 07/01/18 [Rx] Allergies/Adverse Reactions: 3 Allergy/AdvReac Type Severity Reaction Status Date / Time No Known Allergies Allergy Verified 08/25/17 19:36 Date of admission: 06/28/18 15:47 Primary care physician: Conner San MD Consults: 06/28/18 17:41 Consult to Pastoral Services [CONS] Routine Comment: 06/28/18 18:26 Consult to Occupational Therapy [CONS] Routine Comment: Evaluate, develop and implement POC Reason for Consult: Evaluate, develop and implement POC Does patient have active BEDREST order?: No Is patient medically & hemodynamically stable?: Yes Consult to Physical Therapy [CONS] Routine Comment: Evaluate, develop and implement POC Reason for Consult: Disposition planning. Therapy - weakness in bed. Does patient have active BEDREST order?: No Is patient medically & hemodynamically stable?: Yes 06/29/18 08:14 Consult to Wood Box Maker [CONS] Routine Reason for SW Consult: d/c planning 06/29/18 20:52 Consult to Occupational Therapy [CONS] Routine Comment: post shoulder surgery Reason for Consult: post shoulder surgery Does patient have active BEDREST order?: No Is patient medically & hemodynamically stable?: Yes Consult to Physical Therapy [CONS] Routine Comment: post shoulder surgery Reason for Consult: post shoulder surgery Does patient have active BEDREST order?: No Is patient medically & hemodynamically stable?: Yes RT Post Op Consult [CONS] Routine Discharging clinician: Antoinette Bartholomew - Constitutional Vitals: Temp Pulse Resp BP Pulse Ox 97.8 F 101 16 114/83 96 07/01/18 10:26 07/01/18 10:26 07/01/18 10:26 07/01/18 10:26 07/01/18 10:26 General appearance: Present: A&O X 3, obese Exam: Gen: NAD CVS: RRR Lungs: CTAB Ext: left arm in splint, normal sensation of fingers, no edema, ROM normal. - Patient Status Disposition: Transfer SNF Condition: Fair Functional capacity at discharge: independent ambulation Overall status at discharge: patient is progressing back to baseline - Discharge Instructions Follow Up With: Conner San MD [Primary Care Provider] - Ignacio Pandey [Family Provider] - - Diet and Activity Activity: as per physical therapy Diet: advance to your usual diet
--- NOTE | 2018-07-01 13:56 | Physician Discharge Referral ---
ExtendedCare Referral Info Provider in Charge after Transfer: Other Institutional Level of Care: Skilled - Diagnosis (1) Syncope Priority: Primary Status: Acute (2) Humeral fracture Priority: Secondary Status: Acute (3) Hypertension Priority: Secondary Status: Acute (4) History of pulmonary embolism Priority: Secondary Status: Acute (5) Hyponatremia Priority: Secondary Status: Acute (6) Weakness Priority: Secondary Status: Acute (7) DVT prophylaxis Priority: Secondary Status: Acute - Transfer Medications Prescriptions: Apixaban [Eliquis] 2.5 mg PO BID #28 tablet HYDROcodone/Acet 7.5/325 mg [[place] 7.5-325 mg] 1 tab PO Q6H PRN 2 Days #8 tablet PRN Reason: Pain Oxycodone HCl 5 mg PO Q8H PRN 2 Days #6 tablet PRN Reason: Severe Pain Home Medications: Buspirone HCl [Buspar] 15 mg PO BID 06/28/18 [History] Carvedilol 12.5 mg PO BID 06/28/18 [History] Cyclobenzaprine [Flexeril] 10 mg PO BID 06/28/18 [History] LORazepam [Ativan] 1 mg PO BID 06/28/18 [History] Levothyroxine [Synthroid] 50 mcg PO QAM 06/28/18 [History] Pantoprazole Sodium [Protonix] 40 mg PO DAILY 06/28/18 [History] Topiramate [Topamax] 25 mg PO BID 06/28/18 [History] Venlafaxine [Effexor] 75 mg PO BID 06/28/18 [History] hydrOXYzine HCl [Hydroxyzine HCl] 50 mg PO HS PRN 06/28/18 [History] traZODone [TraZODone] 50 mg PO HS 06/28/18 [History] Apixaban [Eliquis] 2.5 mg PO BID #28 tablet 07/01/18 [Rx] Docusate [Colace] 100 mg PO BID capsule 07/01/18 [Rx] HYDROcodone/Acet 7.5/325 mg [[place] 7.5-325 mg] 1 tab PO Q6H PRN 2 Days #8 tablet 07/01/18 [Rx] MOM Conc [MILK OF MAGNESIA conc] 5 ml PO HS PRN ud.liq 07/01/18 [Rx] Ondansetron [Zofran] 4 mg IVP Q6HR PRN vial 07/01/18 [Rx] Oxycodone HCl 5 mg PO Q8H PRN 2 Days #6 tablet 07/01/18 [Rx] Allergies/Adverse Reactions: 3 Allergy/AdvReac Type Severity Reaction Status Date / Time No Known Allergies Allergy Verified 08/25/17 19:36 - Respiratory Orders Smoking Cessation: Smoking cessation has been advised. For more information, call the [place] Tobacco Quit Line at 3-476-JCGT-NOW. - Advance Directives Code Status: Full Code - Mobility Orders Other (as per PT) - Rehabiliation Orders Rehab Orders: Evaluation for Physical Therapy, Evaluation for Occupational Therapy - Treatments Skin tear care topically daily PRN per policy, May check for fecal impaction rectally daily PRN - Diet Orders Regular CERTIFICATION: I certify that the transfer of the above named patient to an Extended Care Facility is necessary for the continuing treatment of the diagnosis listed. The above information is true and accurate reflection of patient's current condition. Confidential - Redisclosure prohibited without a patient's written consent.
[2018-07-01 14:42] VITALS: BP 117/83
--- NOTE | 2018-07-02 09:21 | Electrocardiograph Report ---
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
== END 2018-07-01 17:06 | DRG 493 ==
LOC: EMEROOARM 14:00 → 3NENU 15:47 → SUATTDRO 15:47 → 3NENU 16:45
PROVIDERS: ADMIT Internal Medicine; ATTEND Student in an Organized Health Care Education/Training Program

== ENCOUNTER 2018-09-10 17:54 | Inpatient (IN) ==
[2018-09-10] MEDS ORDERED: Ondansetron 4 MG/2 ML VIAL IVP ONE (18:00)
--- NOTE | 2018-09-10 18:04 | Emergency Department Note ---
Disposition Clinical Impression: Hyponatremia, Hypokalemia, Elevated TSH, Hypochloremia Anemia Qualifiers: Anemia type: unspecified type Qualified Code(s): D64.9 - Anemia, unspecified Disposition: Admitted As Inpatient Condition: Serious Referrals: NONE,PCP [Primary Care Provider] - Time of Disposition: 22:26 General Adult HPI - General Stated complaint: CP Time Seen by Provider: 09/10/18 17:56 Source: patient, EMS Mode of arrival: EMS Limitations: no limitations Nursing Notes Reviewed: Yes Vital Signs Reviewed: Yes - History of Present Illness HPI Narrative: Patient is a 62-year-old female that presents the emergency department with reports of chest pain and shortness of breath. Patient states that she has had a prior history of a pulmonary emboli and this was her main concern based on her symptoms. Patient states that she has had intermittent chest pain over the last 2-3 days. Patient states that the pain is made worse when she gets up and ambulate. Patient states the pain does get better when she rests. Patient states that her chest pain was located in the center of her chest did not radiate up into her left shoulder neck and jaw and down her left arm. Patient states that she also had associated shortness of breath, nausea and diaphoresis. Patient states that she would break out into cold sweats with the chest pain. Patient denies ever having to have a cardiac catheterization or a stress test. Patient states that she has had a history of short runs of V. tach in the past. - Related Data Home Medications Medication Instructions Recorded Confirmed Buspirone HCl [Buspar] 15 mg PO BID 06/28/18 06/28/18 Carvedilol 12.5 mg PO BID 06/28/18 06/28/18 Cyclobenzaprine [Flexeril] 10 mg PO BID 06/28/18 06/28/18 LORazepam [Ativan] 1 mg PO BID 06/28/18 06/28/18 Levothyroxine [Synthroid] 50 mcg PO QAM 06/28/18 06/28/18 Pantoprazole Sodium [Protonix] 40 mg PO DAILY 06/28/18 06/28/18 Topiramate [Topamax] 25 mg PO BID 06/28/18 06/28/18 Venlafaxine [Effexor] 75 mg PO BID 06/28/18 06/28/18 hydrOXYzine HCl [Hydroxyzine HCl] 50 mg PO HS PRN 06/28/18 06/28/18 traZODone [TraZODone] 50 mg PO HS 06/28/18 06/28/18 Previous Rx's Medication Instructions Recorded Apixaban [Eliquis] 2.5 mg PO BID #28 tablet 07/01/18 Docusate [Colace] 100 mg PO BID capsule 07/01/18 HYDROcodone/Acet 7.5/325 mg [[place] 1 tab PO Q6H PRN 2 Days #8 tablet 07/01/18 7.5-325 mg] MOM Conc [MILK OF MAGNESIA conc] 5 ml PO HS PRN ud.liq 07/01/18 Ondansetron [Zofran] 4 mg IVP Q6HR PRN vial 07/01/18 Oxycodone HCl 5 mg PO Q8H PRN 2 Days #6 tablet 07/01/18 Allergies Allergy/AdvReac Type Severity Reaction Status Date / Time No Known Allergies Allergy Verified 08/25/17 19:36 All systems ED: reviewed and negative except as stated. Constitutional: Denies: fever Cardiovascular: Reports: chest pain Respiratory: Reports: cough, dyspnea. Denies: sputum production Gastrointestinal: Reports: nausea. Denies: abdominal pain Past Medical History - Past Medical History Medical history: Reports: COPD, hypertension, pulmonary embolus Surgical history: Reports: no surgical history Psychiatric history: Reports: no psych history - Social History Smoking Status: 2nd Hand Smoke Exposure Smokeless Tobacco Status: No Alcohol use: Reports: occasionally, recent Drug use: Reports: none Physical Exam - General Limitations: no limitations General appearance: alert, in no apparent distress - Head Head exam: atraumatic, normocephalic - Eye Eye exam: Present: normal appearance, EOMI - Neck Neck exam: Present: normal inspection, full ROM, trachea midline - Respiratory Respiratory exam: Present: normal lung sounds bilaterally. Absent: respiratory distress, wheezes - Cardiovascular Cardiovascular exam: Present: regular rate, normal rhythm, normal heart sounds, +S1, +S2 - Abdominal Exam Abdominal exam: Present: soft, Non-Tender, normal bowel sounds - Neurological Exam Neurological exam: Present: alert, oriented X3 - Psychiatric Psychiatric exam: Present: normal affect, normal mood - Skin Skin exam: Present: warm, dry, intact Course Vital Signs Temperature 99.0 F 12/13/18 18:18 Pulse Rate 98 09/10/18 18:18 Respiratory Rate 18 09/10/18 18:18 Blood Pressure 137/91 09/10/18 18:18 O2 Sat by Pulse Oximetry 99 09/10/18 18:18 Temperature 99.0 F 09/10/18 18:18 Pulse Rate 74 09/10/18 20:26 Respiratory Rate 16 09/10/18 20:26 Blood Pressure 120/93 09/10/18 20:26 O2 Sat by Pulse Oximetry 97 09/10/18 20:26 Oxygen Delivery Oxygen Delivery Room Air Medical Decision Making - MDM Narrative Medical decision making narrative: Due the patient presents emergency Department with chest pain and shortness of breath with a history of PE there is concern for possible PE or possible cardiac involvement. The patient's chemistry has returned and showed a sodium of 108 a repeat BMP was obtained which showed a sodium of 109. Patient's potassium is 2.9. Patient was given 40 of oral potassium as well as 40 of IV potassium. Patient was given a gram of magnesium due to having I will make these anemia. Patient did have a n elevated TSH however the patient does have a history of hypothyroidism and is on Synthroid. Her Synthroid may be needed to be titrated while she is in the hospital. The patient has been chest pain-free during her stay here in the emergency department. Her urine sodium was 138.5. Patient's urine also rales are 390. Based on the significant electrolyte abnormalities a consult was placed to nephrology. Patient does have a hemoglobin of 10.2 however this appears to be chronic for the patient. Due to the patient having a significantly low sodium a lithium order was also placed. The patient's lithium is less than 0.1. Patient having a essentially negative lithium I do not feel that this is the cause of lithium induced nephrogenic diabetes insipidus. The patient will require admission to the hospital for further evaluation and management. Called and spoke with the admitting hospitalist Dr. Bellamy and he is accepted the patient to their service. Patient be admitted to the hosp ital this time for further evaluation and management. He did request that the patient be brought into the ICU. I feel that this is very reasonable due the patient's electrolyte abnormalities. We discussed that the patient was asymptomatic and we did not feel that there was necessity for hypertonic saline at this time. However I think that the patient being placed in the ICU is appropriate placement due to increased monitoring of the patient's symptoms for potential this is a for a central line hypertonic saline. Nephrology consult has been placed in [facility]. - Medical Records Medical records reviewed: Yes I reviewed the patient's medical records. - Lab Data Lab results reviewed: Yes I reviewed the patient's lab results. Result diagrams: 09/10/18 19:20 09/10/18 21:07 Lab Results 09/10/18 09/10/18 09/10/18 Range/Units 19:20 19:20 19:20 WBC 7.6 (4.3-11.1) K/mcL RBC 3.85 (3.82-4.97) M/mcL Hgb 10.2 L (11.5-15.4) g/dL Hct 30.0 L (35.3-44.9) % MCV 77.9 L (83.0-100.0) fL MCH 26.5 L (28.0-33.3) pg MCHC 34.0 (31.6-35.5) g/dL RDW 15.7 H (11.5-14.5) % Plt Count 229 (140-400) K/mcL MPV 8.6 L (9.4-12.4) fL Immature Gran % 0.7 (0-4) % Seg Neutrophils % 74.5 % Lymphocytes % 15.0 % Monocytes % 8.3 % Eosinophils % 1.4 % Basophils % 0.1 % Neutrophils # 5.7 (1.6-8.9) K/mcL Lymphocytes # 1.1 (0.6-4.6) K/mcL Monocytes # 0.6 (0.0-1.3) K/mcL Eosinophils # 0.1 (0.0-0.6) K/mcL Basophils # 0.0 (0.0-0.2) K/mcL PT 14.0 H (9.4-12.1) Seconds INR 1.2 APTT 38.1 H (26.0-36.0) Seconds D-Dimer 446 (0-500) ng/mLFEU Sodium 108 L* (136-145) mEq/L Potassium 3.0 L (3.5-5.1) mEq/L Chloride 76 L (98-107) mEq/L Carbon Dioxide 23 (23-29) mEq/L BUN 4 L (8-23) mg/dL Creatinine 0.51 L (0.60-1.20) mg/dL Est GFR ( Amer) > 60 (> 60) Est GFR (Non-Af Amer) > 60 (> 60) BUN/Creatinine Ratio 8 (6-26) Glucose 98 (70-105) mg/dL Calculated Osmolality 223 L (280-300) Calcium 8.7 (8.6-10.3) mg/dL Phosphorus (2.7-4.5) mg/dL Magnesium (1.6-2.6) mg/dL Troponin I < 0.03 (< 0.04) ng/mL TSH (0.340-5.600) mcIU/mL Urine Color (Yellow) Urine Clarity (Clear) Urine pH (5.0-8.0) pH Units Ur Specific [place] (1.010-1.025) Urine Protein (Neg-Trace) mg/dL Urine Glucose (UA) (Normal) mg/dL Urine Ketones (Negative) mg/dL Urine Blood (Negative) Urine Nitrite (Negative) Urine Bilirubin (Negative) Urine Urobilinogen (Normal) mg/dL Ur Leukocyte Esterase (Negative) Urine Microscopic RBC (0-3) per hpf Urine Microscopic WBC (0-3) per hpf Ur Squamous Epith Cells (None-Few) per lpf Urine Bacteria (None-Few) per hpf Hyaline Casts (None-Few) per lpf Ur Culture Indicated? (NO) Urine Osmolality (300-1090) mOsm/kg Urine Sodium mEq/L [place] (0.6-1.2) mEq/L 09/10/18 09/10/18 09/10/18 Range/Units 19:20 20:28 20:32 WBC (4.3-11.1) K/mcL RBC (3.82-4.97) M/mcL Hgb (11.5-15.4) g/dL Hct (35.3-44.9) % MCV (83.0-100.0) fL MCH (28.0-33.3) pg MCHC (31.6-35.5) g/dL RDW (11.5-14.5) % Plt Count (140-400) K/mcL MPV (9.4-12.4) fL Immature Gran % (0-4) % Seg Neutrophils % % Lymphocytes % % Monocytes % % Eosinophils % % Basophils % % Neutrophils # (1.6-8.9) K/mcL Lymphocytes # (0.6-4.6) K/mcL Monocytes # (0.0-1.3) K/mcL Eosinophils # (0.0-0.6) K/mcL Basophils # (0.0-0.2) K/mcL PT (9.4-12.1) Seconds INR APTT (26.0-36.0) Seconds D-Dimer (0-500) ng/mLFEU Sodium (136-145) mEq/L Potassium (3.5-5.1) mEq/L Chloride (98-107) mEq/L Carbon Dioxide (23-29) mEq/L BUN (8-23) mg/dL Creatinine (0.60-1.20) mg/dL Est GFR ( Amer) (> 60) Est GFR (Non-Af Amer) (> 60) BUN/Creatinine Ratio (6-26) Glucose (70-105) mg/dL Calculated Osmolality (280-300) Calcium (8.6-10.3) mg/dL Phosphorus (2.7-4.5) mg/dL Magnesium (1.6-2.6) mg/dL Troponin I (< 0.04) ng/mL TSH (0.340-5.600) mcIU/mL Urine Color Yellow (Yellow) Urine Clarity Clear (Clear) Urine pH 7.5 (5.0-8.0) pH Units Ur Specific [place] < 1.005 L (1.010-1.025) Urine Protein Negative (Neg-Trace) mg/dL Urine Glucose (UA) Normal (Normal) mg/dL Urine Ketones 15 H (Negative) mg/dL Urine Blood Trace H (Negative) Urine Nitrite Negative (Negative) Urine Bilirubin Negative (Negative) Urine Urobilinogen Normal (Normal) mg/dL Ur Leukocyte Esterase Small H (Negative) Urine Microscopic RBC 5-15 H (0-3) per hpf Urine Microscopic WBC 3-5 H (0-3) per hpf Ur Squamous Epith Cells Many H (None-Few) per lpf Urine Bacteria None Seen (None-Few) per hpf Hyaline Casts None Seen (None-Few) per lpf Ur Culture Indicated? NO. A (NO) Urine Osmolality (300-1090) mOsm/kg Urine Sodium 138.5 mEq/L [place] < 0.1 L (0.6-1.2) mEq/L 09/10/18 09/10/18 Range/Units 20:32 21:07 WBC (4.3-11.1) K/mcL RBC (3.82-4.97) M/mcL Hgb (11.5-15.4) g/dL Hct (35.3-44.9) % MCV (83.0-100.0) fL MCH (28.0-33.3) pg MCHC (31.6-35.5) g/dL RDW (11.5-14.5) % Plt Count (140-400) K/mcL MPV (9.4-12.4) fL Immature Gran % (0-4) % Seg Neutrophils % % Lymphocytes % % Monocytes % % Eosinophils % % Basophils % % Neutrophils # (1.6-8.9) K/mcL Lymphocytes # (0.6-4.6) K/mcL Monocytes # (0.0-1.3) K/mcL Eosinophils # (0.0-0.6) K/mcL Basophils # (0.0-0.2) K/mcL PT (9.4-12.1) Seconds INR APTT (26.0-36.0) Seconds D-Dimer (0-500) ng/mLFEU Sodium 109 L* (136-145) mEq/L Potassium 2.9 L (3.5-5.1) mEq/L Chloride 76 L (98-107) mEq/L Carbon Dioxide 21 L (23-29) mEq/L BUN 4 L (8-23) mg/dL Creatinine 0.49 L (0.60-1.20) mg/dL Est GFR ( Amer) > 60 (> 60) Est GFR (Non-Af Amer) > 60 (> 60) BUN/Creatinine Ratio 8 (6-26) Glucose 96 (70-105) mg/dL Calculated Osmolality 225 L (280-300) Calcium 8.5 L (8.6-10.3) mg/dL Phosphorus 2.2 L (2.7-4.5) mg/dL Magnesium 1.5 L (1.6-2.6) mg/dL Troponin I (< 0.04) ng/mL TSH 6.728 H (0.340-5.600) mcIU/mL Urine Color (Yellow) Urine Clarity (Clear) Urine pH (5.0-8.0) pH Units Ur Specific [place] (1.010-1.025) Urine Protein (Neg-Trace) mg/dL Urine Glucose (UA) (Normal) mg/dL Urine Ketones (Negative) mg/dL Urine Blood (Negative) Urine Nitrite (Negative) Urine Bilirubin (Negative) Urine Urobilinogen (Normal) mg/dL Ur Leukocyte Esterase (Negative) Urine Microscopic RBC (0-3) per hpf Urine Microscopic WBC (0-3) per hpf Ur Squamous Epith Cells (None-Few) per lpf Urine Bacteria (None-Few) per hpf Hyaline Casts (None-Few) per lpf Ur Culture Indicated? (NO) Urine Osmolality 390 (300-1090) mOsm/kg Urine Sodium mEq/L [place] (0.6-1.2) mEq/L - Radiology Data Radiology results reviewed: Yes I reviewed the patient's radiology results. Chest X-Ray 09/10/18 18:01 IMPRESSION: No acute cardiopulmonary disease. D/ / Jm Arredondo MD / Jm Arredondo MD Interpreting Provider: Jm Arredondo MD - EKG Data EKG #1 EKG attestation: Yes I reviewed and interpreted this EKG. EKG results narrative: EKG shows a sinus tachycardia rate 100 bpm, [place] interval 169, QRS duration of 89, QTC of 485. There is no evidence of STEMI on EKG. this is compared to previous EKG on 06/28/18 which showed a sinus rhythm and rate at 90 bpm. Attestation Statement - Attestation Attestation: I, Isauro Mcgrath DO, examined this patient [id number] and my medical decision-making was reviewed with Dr. Ronaldo Mcclendon, Resident Physician. I agree with the documented findings, disposition and treatment plan as described except to the extent set forth below. Please see my progress notes for details.
--- NOTE | 2018-09-10 18:22 | Emergency Department Note ---
Disposition Clinical Impression: Hyponatremia, Hypokalemia, Anemia, Elevated TSH Disposition: Admitted As Inpatient Condition: Fair Referrals: NONE,PCP [Non-Partnered Physician] - Time of Disposition: 22:27 General Adult HPI - General Stated complaint: CP Time Seen by Provider: 09/10/18 17:56 Source: patient, EMS Mode of arrival: EMS Limitations: no limitations - Related Data Home Medications Medication Instructions Recorded Confirmed Buspirone HCl [Buspar] 15 mg PO BID 06/28/18 06/28/18 Carvedilol 12.5 mg PO BID 06/28/18 06/28/18 Cyclobenzaprine [Flexeril] 10 mg PO BID 06/28/18 06/28/18 LORazepam [Ativan] 1 mg PO BID 06/28/18 06/28/18 Levothyroxine [Synthroid] 50 mcg PO QAM 06/28/18 06/28/18 Pantoprazole Sodium [Protonix] 40 mg PO DAILY 06/28/18 06/28/18 Topiramate [Topamax] 25 mg PO BID 06/28/18 06/28/18 Venlafaxine [Effexor] 75 mg PO BID 06/28/18 06/28/18 hydrOXYzine HCl [Hydroxyzine HCl] 50 mg PO HS PRN 06/28/18 06/28/18 traZODone [TraZODone] 50 mg PO HS 06/28/18 06/28/18 Previous Rx's Medication Instructions Recorded Apixaban [Eliquis] 2.5 mg PO BID #28 tablet 07/01/18 Docusate [Colace] 100 mg PO BID capsule 07/01/18 HYDROcodone/Acet 7.5/325 mg [[place] 1 tab PO Q6H PRN 2 Days #8 tablet 07/01/18 7.5-325 mg] MOM Conc [MILK OF MAGNESIA conc] 5 ml PO HS PRN ud.liq 07/01/18 Ondansetron [Zofran] 4 mg IVP Q6HR PRN vial 07/01/18 Oxycodone HCl 5 mg PO Q8H PRN 2 Days #6 tablet 07/01/18 Allergies Allergy/AdvReac Type Severity Reaction Status Date / Time No Known Allergies Allergy Verified 08/25/17 19:36 Constitutional: Denies: fever Cardiovascular: Reports: chest pain Respiratory: Reports: cough, dyspnea. Denies: sputum production Gastrointestinal: Reports: nausea. Denies: abdominal pain Past Medical History - Past Medical History Medical history: Reports: COPD, hypertension, pulmonary embolus Surgical history: Reports: no surgical history Psychiatric history: Reports: no psych history - Social History Smoking Status: 2nd Hand Smoke Exposure Smokeless Tobacco Status: No Alcohol use: Reports: occasionally, recent Drug use: Reports: none Physical Exam - General Limitations: no limitations General appearance: alert, in no apparent distress Course Vital Signs Temperature 99.0 F 09/10/18 18:18 Pulse Rate 98 09/10/18 18:18 Respiratory Rate 18 09/10/18 18:18 Blood Pressure 137/91 09/10/18 18:18 O2 Sat by Pulse Oximetry 99 09/10/18 18:18 Temperature 99.0 F 09/10/18 18:18 Pulse Rate 74 09/10/18 20:26 Respiratory Rate 16 09/10/18 20:26 Blood Pressure 120/93 09/10/18 20:26 O2 Sat by Pulse Oximetry 97 09/10/18 20:26 Oxygen Delivery Oxygen Delivery Room Air Medical Decision Making - Lab Data Result diagrams: 09/10/18 19:20 09/10/18 21:07 Lab Results 09/10/18 09/10/18 09/10/18 Range/Units 19:20 19:20 19:20 WBC 7.6 (4.3-11.1) K/mcL RBC 3.85 (3.82-4.97) M/mcL Hgb 10.2 L (11.5-15.4) g/dL Hct 30.0 L (35.3-44.9) % MCV 77.9 L (83.0-100.0) fL MCH 26.5 L (28.0-33.3) pg MCHC 34.0 (31.6-35.5) g/dL RDW 15.7 H (11.5-14.5) % Plt Count 229 (140-400) K/mcL MPV 8.6 L (9.4-12.4) fL Immature Gran % 0.7 (0-4) % Seg Neutrophils % 74.5 % Lymphocytes % 15.0 % Monocytes % 8.3 % Eosinophils % 1.4 % Basophils % 0.1 % Neutrophils # 5.7 (1.6-8.9) K/mcL Lymphocytes # 1.1 (0.6-4.6) K/mcL Monocytes # 0.6 (0.0-1.3) K/mcL Eosinophils # 0.1 (0.0-0.6) K/mcL Basophils # 0.0 (0.0-0.2) K/mcL PT 14.0 H (9.4-12.1) Seconds INR 1.2 APTT 38.1 H (26.0-36.0) Seconds D-Dimer 446 (0-500) ng/mLFEU Sodium 108 L* (136-145) mEq/L Potassium 3.0 L (3.5-5.1) mEq/L Chloride 76 L (98-107) mEq/L Carbon Dioxide 23 (23-29) mEq/L BUN 4 L (8-23) mg/dL Creatinine 0.51 L (0.60-1.20) mg/dL Est GFR ( Amer) > 60 (> 60) Est GFR (Non-Af Amer) > 60 (> 60) BUN/Creatinine Ratio 8 (6-26) Glucose 98 (70-105) mg/dL Calculated Osmolality 223 L (280-300) Calcium 8.7 (8.6-10.3) mg/dL Phosphorus (2.7-4.5) mg/dL Magnesium (1.6-2.6) mg/dL Troponin I < 0.03 (< 0.04) ng/mL TSH (0.340-5.600) mcIU/mL Urine Color (Yellow) Urine Clarity (Clear) Urine pH (5.0-8.0) pH Units Ur Specific [place] (1.010-1.025) Urine Protein (Neg-Trace) mg/dL Urine Glucose (UA) (Normal) mg/dL Urine Ketones (Negative) mg/dL Urine Blood (Negative) Urine Nitrite (Negative) Urine Bilirubin (Negative) Urine Urobilinogen (Normal) mg/dL Ur Leukocyte Esterase (Negative) Urine Microscopic RBC (0-3) per hpf Urine Microscopic WBC (0-3) per hpf Ur Squamous Epith Cells (None-Few) per lpf Urine Bacteria (None-Few) per hpf Hyaline Casts (None-Few) per lpf Ur Culture Indicated? (NO) Urine Osmolality (300-1090) mOsm/kg Urine Sodium mEq/L [place] (0.6-1.2) mEq/L 09/10/18 09/10/18 09/10/18 Range/Units 19:20 20:28 20:32 WBC (4.3-11.1) K/mcL RBC (3.82-4.97) M/mcL Hgb (11.5-15.4) g/dL Hct (35.3-44.9) % MCV (83.0-100.0) fL MCH (28.0-33.3) pg MCHC (31.6-35.5) g/dL RDW (11.5-14.5) % Plt Count (140-400) K/mcL MPV (9.4-12.4) fL Immature Gran % (0-4) % Seg Neutrophils % % Lymphocytes % % Monocytes % % Eosinophils % % Basophils % % Neutrophils # (1.6-8.9) K/mcL Lymphocytes # (0.6-4.6) K/mcL Monocytes # (0.0-1.3) K/mcL Eosinophils # (0.0-0.6) K/mcL Basophils # (0.0-0.2) K/mcL PT (9.4-12.1) Seconds INR APTT (26.0-36.0) Seconds D-Dimer (0-500) ng/mLFEU Sodium (136-145) mEq/L Potassium (3.5-5.1) mEq/L Chloride (98-107) mEq/L Carbon Dioxide (23-29) mEq/L BUN (8-23) mg/dL Creatinine (0.60-1.20) mg/dL Est GFR ( Amer) (> 60) Est GFR (Non-Af Amer) (> 60) BUN/Creatinine Ratio (6-26) Glucose (70-105) mg/dL Calculated Osmolality (280-300) Calcium (8.6-10.3) mg/dL Phosphorus (2.7-4.5) mg/dL Magnesium (1.6-2.6) mg/dL Troponin I (< 0.04) ng/mL TSH (0.340-5.600) mcIU/mL Urine Color Yellow (Yellow) Urine Clarity Clear (Clear) Urine pH 7.5 (5.0-8.0) pH Units Ur Specific [place] < 1.005 L (1.010-1.025) Urine Protein Negative (Neg-Trace) mg/dL Urine Glucose (UA) Normal (Normal) mg/dL Urine Ketones 15 H (Negative) mg/dL Urine Blood Trace H (Negative) Urine Nitrite Negative (Negative) Urine Bilirubin Negative (Negative) Urine Urobilinogen Normal (Normal) mg/dL Ur Leukocyte Esterase Small H (Negative) Urine Microscopic RBC 5-15 H (0-3) per hpf Urine Microscopic WBC 3-5 H (0-3) per hpf Ur Squamous Epith Cells Many H (None-Few) per lpf Urine Bacteria None Seen (None-Few) per hpf Hyaline Casts None Seen (None-Few) per lpf Ur Culture Indicated? NO. A (NO) Urine Osmolality (300-1090) mOsm/kg Urine Sodium 138.5 mEq/L [place] < 0.1 L (0.6-1.2) mEq/L 09/10/18 09/10/18 Range/Units 20:32 21:07 WBC (4.3-11.1) K/mcL RBC (3.82-4.97) M/mcL Hgb (11.5-15.4) g/dL Hct (35.3-44.9) % MCV (83.0-100.0) fL MCH (28.0-33.3) pg MCHC (31.6-35.5) g/dL RDW (11.5-14.5) % Plt Count (140-400) K/mcL MPV (9.4-12.4) fL Immature Gran % (0-4) % Seg Neutrophils % % Lymphocytes % % Monocytes % % Eosinophils % % Basophils % % Neutrophils # (1.6-8.9) K/mcL Lymphocytes # (0.6-4.6) K/mcL Monocytes # (0.0-1.3) K/mcL Eosinophils # (0.0-0.6) K/mcL Basophils # (0.0-0.2) K/mcL PT (9.4-12.1) Seconds INR APTT (26.0-36.0) Seconds D-Dimer (0-500) ng/mLFEU Sodium 109 L* (136-145) mEq/L Potassium 2.9 L (3.5-5.1) mEq/L Chloride 76 L (98-107) mEq/L Carbon Dioxide 21 L (23-29) mEq/L BUN 4 L (8-23) mg/dL Creatinine 0.49 L (0.60-1.20) mg/dL Est GFR ( Amer) > 60 (> 60) Est GFR (Non-Af Amer) > 60 (> 60) BUN/Creatinine Ratio 8 (6-26) Glucose 96 (70-105) mg/dL Calculated Osmolality 225 L (280-300) Calcium 8.5 L (8.6-10.3) mg/dL Phosphorus 2.2 L (2.7-4.5) mg/dL Magnesium 1.5 L (1.6-2.6) mg/dL Troponin I (< 0.04) ng/mL TSH 6.728 H (0.340-5.600) mcIU/mL Urine Color (Yellow) Urine Clarity (Clear) Urine pH (5.0-8.0) pH Units Ur Specific [place] (1.010-1.025) Urine Protein (Neg-Trace) mg/dL Urine Glucose (UA) (Normal) mg/dL Urine Ketones (Negative) mg/dL Urine Blood (Negative) Urine Nitrite (Negative) Urine Bilirubin (Negative) Urine Urobilinogen (Normal) mg/dL Ur Leukocyte Esterase (Negative) Urine Microscopic RBC (0-3) per hpf Urine Microscopic WBC (0-3) per hpf Ur Squamous Epith Cells (None-Few) per lpf Urine Bacteria (None-Few) per hpf Hyaline Casts (None-Few) per lpf Ur Culture Indicated? (NO) Urine Osmolality 390 (300-1090) mOsm/kg Urine Sodium mEq/L [place] (0.6-1.2) mEq/L Attestation Statement - Attestation Attestation: I, Isauro Mcgrath DO, examined this patient [id number] and my medical decision-making was reviewed with Dr. Ronaldo Mcclendon, Resident Physician. I agree with the documented findings, disposition and treatment plan as described except to the extent set forth below. Please see my progress notes for details. 62-year-old female presents to emergency room for evaluation of chest discomfort and pain. Patient is on off symptoms for the last 3-4 days. She has not been taking her Ativan or Wellbutrin secondary to her primary care provider not prescribing to any longer. At the presentation time the patient is denying chest pain, shortness of breath, headache, vision changes, nausea vomiting or diarrhea. Denies fevers or chills. She has not fallen or injured herself. Patient does have a history of pulmonary emboli. She denies any swelling or asymmetry in her lower extremities. Vital signs are initially stable outside of mild tachycardia. Difficult to differentiate whether or not this is from anxiety versus underlying pulmonary related disease. Patient will have intravenous provided for her history of COPD as well as a cardiac evaluation including CBC chemistry troponin EKG and chest x-ray. Patient will be provided aspirin here. She is otherwise asymptomatic describing no pain or symptoms at this time. Patient is resting comfortably in the bed. Head is atraumatic. Pupils are equal round reactive. Extraocular muscles are intact. Lungs are clear to auscultation. Heart is regular. Abdomen is soft nontender nondistended with no guarding no rigidity no peritoneal symptoms at this time. Patient will be monitored. Symptomatic control is completed detailed evaluation is established and disposition is determined. D-dimer will be added on se condary to the patient's history of PE. She has describe some worsening shortness of breath but again because of her COPD history and the undifferentiated presentation we will treat symptoms and determine disposition. See detailed documentation of the physical exam, medical intervention, medical decision-making and disposition in the resident physician's note. No critical care provider the patient's treatment course at this time. 1999 Patient found to have a sodium of 108 potassium of 3.0 chloride of 76 on the chemistry panel that was completed this time. The requested that the laboratory team repeat this lab and blood draw. Patient will also have a lithium level and thyroid function added on at this point along with magnesium phosphorus and ionized calcium. Patient has no specific history of cancer. Chest x-ray does not show any signs of pulmonary nodule or mass. Disposition pending the workup and treatment course. Fluid restriction will be started at this time. 2214 Patient's repeat labs show a sodium of 109. Electrolytes including magnesium and potassium were repleted here in the emergency department. No other specific infectious etiology or antibiotic versus medication induced sources were found at this time. We discussed the findings with the on-call hospitalist Dr. jimenez. Patient will be placed in the intensive care unit secondary to the sodium level. She currently does not require hypertonic saline She does not have any acute signs of neurologic status changes or altered mentation. Patient will be monitored closely. Admission process will be established. Patient will be monitored in emergency room until the admission is completed
[2018-09-10] MEDS: Aspirin 81 MG TAB.CHEW PO ONE ×2 (18:24→18:53)
[2018-09-10] MEDS: Nitroglycerin 0.4 MG TAB.SUBL SL ONE ×2 (18:25→18:53)
[2018-09-10] MEDS ORDERED: Ipratropium/Albuterol Neb 3 ML IH ONE (18:26)
[2018-09-10 19:30] LABS: Basophils % 0.1 %; Eosinophils # 0.1 K/mcL (0.0-0.6); Eosinophils % 1.4 %; Hemoglobin 10.2 g/dL (11.5-15.4); Immature Granulocytes % 0.7 % (0-4); Lymphocytes # 1.1 K/mcL (0.6-4.6); Mean Corpuscular Hemoglobin 26.5 pg (28.0-33.3); Mean Corpuscular Volume 77.9 fL (83.0-100.0); Mean Platelet Volume 8.6 fL (9.4-12.4); Monocytes # 0.6 K/mcL (0.0-1.3); Monocytes % 8.3 %; Neutrophils # 5.7 K/mcL (1.6-8.9); Platelet Count 229 K/mcL (140-400); Red Blood Count 3.85 M/mcL (3.82-4.97); Red Cell Distribution Width 15.7 % (11.5-14.5); Segmented Neutrophils % 74.5 %
[2018-09-10 19:38] LABS: INR 1.2
[2018-09-10 19:41] LABS: Activated Partial Thrombo Time 38.1 Seconds (26.0-36.0)
[2018-09-10 19:51] LABS: Troponin I < 0.03 ng/mL (< 0.04)
[2018-09-10 19:55] LABS: BUN/Creatinine Ratio 8 (6-26); Blood Urea Nitrogen 4 mg/dL (8-23); Calcium 8.7 mg/dL (8.6-10.3); Carbon Dioxide 23 mEq/L (23-29); Chloride 76 mEq/L (98-107); Glucose 98 mg/dL (70-105); Osmolality,Calculated 223 (280-300); Sodium 108 mEq/L (136-145); eGFR For Non-African Americans > 60 (> 60)
[2018-09-10 20:38] LABS: Bilirubin,Urine Negative (Negative); Blood,Urine Trace (Negative); Clarity,Urine Clear (Clear); Color,Urine Yellow (Yellow); Glucose,Urine (UA) Normal (Normal); Ketones,Urine 15 mg/dL (Negative); Leukocyte Esterase,Urine Small (Negative); Nitrite,Urine Negative (Negative); PH,Urine 7.5 pH Units (5.0-8.0); Protein,Urine Negative (Neg-Trace); Specific Gravity,Urine < 1.005 (1.010-1.025); Urobilinogen,Urine Normal (Normal)
[2018-09-10 20:41] LABS: Bacteria,Urine None Seen per hpf (None-Few); Hyaline Casts,Urine None Seen per lpf (None-Few); Squamous Epithelial Cell,Urine Many per lpf (None-Few)
[2018-09-10 21:51] LABS: BUN/Creatinine Ratio 8 (6-26); Blood Urea Nitrogen 4 mg/dL (8-23); Calcium 8.5 mg/dL (8.6-10.3); Carbon Dioxide 21 mEq/L (23-29); Chloride 76 mEq/L (98-107); Glucose 96 mg/dL (70-105); Magnesium 1.5 mg/dL (1.6-2.6); Osmolality,Calculated 225 (280-300); Phosphorous 2.2 mg/dL (2.7-4.5); Potassium 2.9 mEq/L (3.5-5.1); Sodium 109 mEq/L (136-145); eGFR For Non-African Americans > 60 (> 60)
[2018-09-10 21:54] LABS: Thyroid Stimulating Hormone 6.728 mcIU/mL (0.340-5.600)
[2018-09-10] MEDS ORDERED: Potassium Chloride Elixir 20 MEQ/15 ML UDC PO ONE (21:54)
--- NOTE | 2018-09-10 23:57 | Internal Med History&Physical ---
<Ricardo Vyas - Last Filed: 09/11/18 03:22> Date of Encounter: 09/11/18 Time of Encounter: 23:57 Internal Medicine - H&P: HPI Chief complaint: Hyponatremia Admitted From: Emergency Dept Plans for Post Hospital Care: Home History of present illness: Ms. Tellez is a 62 year old female PMHx of PE, COPD, HTN, cervical cancer and hyponatremia presented to the ED for evaluation of dyspnea as well as weakness has been going on for the past few days. Patient states that whenever she is exerting herself or if she is laying flat she comes very short of breath. She states that she has a history of a PE and she was concerned at this time that this was a pulmonary embolism. Her evaluation in the emergency department the patient was found to have a sodium of 109. On my questioning the patient also admits to frequency, hesitancy and difficulty with urination. The patient states that she feels like she has to urinate however very little urine comes out if any. She said this is been going on for the past 3 days. Patient also states that many years ago which she cannot recall how long ago she was di agnosed with cervical cancer in which she had a cancer removed from her cervix and she states she followed up one year later and was found to have cancer second time which she required removal. 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 Past Med Surg Social Fam HX - Past Medical History Medical history: COPD, hypertension, pulmonary embolus Additional medical history: tachycardia Psychiatric history: no psych history - Past Surgical History Surgical History: no surgical history Additional surgical history: Tonsillectomy - Social History Smoking Status: 2nd Hand Smoke Exposure Smokeless Tobacco Status: No Alcohol use: occasionally, recent Drug use: none - Family History Mother Hx Family Cancer: Yes (skin) Internal Medicine - H&P: Meds Buspirone HCl [Buspar] 15 mg PO BID 06/28/18 [History] Carvedilol 12.5 mg PO BID 06/28/18 [History] Cyclobenzaprine [Flexeril] 10 mg PO BID 06/28/18 [History] LORazepam [Ativan] 1 mg PO BID 06/28/18 [History] Levothyroxine [Synthroid] 50 mcg PO QAM 06/28/18 [History] Pantoprazole Sodium [Protonix] 40 mg PO DAILY 06/28/18 [History] Topiramate [Topamax] 25 mg PO BID 06/28/18 [History] Venlafaxine [Effexor] 75 mg PO BID 06/28/18 [History] hydrOXYzine HCl [Hydroxyzine HCl] 50 mg PO HS PRN 06/28/18 [History] traZODone [TraZODone] 50 mg PO HS 06/28/18 [History] Apixaban [Eliquis] 2.5 mg PO BID #28 tablet 07/01/18 [Rx] Docusate [Colace] 100 mg PO BID capsule 07/01/18 [Rx] HYDROcodone/Acet 7.5/325 mg [[place] 7.5-325 mg] 1 tab PO Q6H PRN 2 Days #8 tablet 07/01/18 [Rx] MOM Conc [MILK OF MAGNESIA conc] 5 ml PO HS PRN ud.liq 07/01/18 [Rx] Ondansetron [Zofran] 4 mg IVP Q6HR PRN vial 07/01/18 [Rx] Oxycodone HCl 5 mg PO Q8H PRN 2 Days #6 tablet 07/01/18 [Rx] Allergy/AdvReac Type Severity Reaction Status Date / Time No Known Allergies Allergy Verified 08/25/17 19:36 All Systems PM: A 10-system review of systems was performed and is negative for pertinent findings except as documented above in the HPI. - Constitutional Constitutional: weakness, no fever(s), no lethargy - EENT Eyes: no loss of vision - Cardiovascular Cardiovascular ROS IM: dyspnea, no chest pain, no dyspnea on exertion, no palpitations - Respiratory Respiratory: dyspnea, no cough - Gastrointestinal Gastrointestinal: abdominal pain (suprapubic pressure), no diarrhea, no nausea, no vomiting - Genitourinary Genitourinary: difficulty urinating, difficulty voiding, dysuria, no abnormal menses, no abnormal vaginal bleeding, no flank pain - Musculoskeletal Musculoskeletal ROS IM: as per HPI - Integumentary Integumentary IM: as per HPI - Neurological Neurological ROS: as per HPI - Psychiatric Psychiatric: as per HPI - Constitutional Vitals: Temp Pulse Resp BP Pulse Ox 99.0 F 100 18 139/89 95 12/13/18 18:18 09/10/18 21:24 09/10/18 21:24 09/10/18 21:24 09/10/18 21:24 General appearance: Present: A&O X 3 Exam: Patient is in no acute distress. Sitting up in bed, speaking in full sentences and asking for something to eat. - Head Head exam: Present: atraumatic, normal inspection, normocephalic - Eye Eye exam: Present: EOMI, PERRL - ENT ENT exam: Present: mucous membranes dry - Neck Neck exam general surgery: Present: supple, trachea midline - Respiratory Respiratory exam: Present: CTAB. Absent: respiratory distress, rhonchi, wh eezes, tachypnea - Cardiovascular Cardiovascular exam: Present: RRR, +S1, +S2 - GI/Abdominal GI/Abdominal exam: Present: normal bowel sounds, soft. Absent: tenderness - Extremities Exam Extremities exam: Present: full ROM, warm - Back Exam Back exam: Present: full ROM, normal inspection. Absent: CVA tenderness (L), CVA tenderness (R) - Neurological Exam Neurological exam: Present: alert, oriented X3, no focal deficits - Psychiatric Psychiatric exam: Present: normal affect, normal mood Internal Med - H&P Results - Labs CBC & Chem 7: 09/11/18 00:17 09/11/18 00:17 Labs: Short CBC 09/10/18 Range/Units 19:20 WBC 7.6 (4.3-11.1) K/mcL Hgb 10.2 L (11.5-15.4) g/dL Hct 30.0 L (35.3-44.9) % Plt Count 229 (140-400) K/mcL Neutrophils # 5.7 (1.6-8.9) K/mcL BMP 09/10/18 09/10/18 19:20 21:07 Sodium 108 L* 109 L* Potassium 3.0 L 2.9 L Chloride 76 L 76 L Carbon Dioxide 23 21 L BUN 4 L 4 L Creatinine 0.51 L 0.49 L Glucose 98 96 Calcium 8.7 8.5 L Cardiac Enzymes 09/10/18 Range/Units 19:20 Troponin I < 0.03 (< 0.04) ng/mL Urine 09/10/18 Range/Units 20:28 Urine Color Yellow (Yellow) Urine Clarity Clear (Clear) Urine pH 7.5 (5.0-8.0) pH Units Ur Specific [place] < 1.005 L (1.010-1.025) Urine Protein Negative (Neg-Trace) mg/dL Urine Glucose (UA) Normal (Normal) mg/dL - Impressions ITS Impressions Chest X-Ray 09/10/18 18:01 IMPRESSION: No acute cardiopulmonary disease. D/ / Jm Arredondo MD / Jm Arredondo MD Interpreting Provider: Jm Arredondo MD - Assessment and plan (1) Hyponatremia Current Visit: Yes Status: Acute Assessment and plan: Likely multifactorial Possible etiology includes Hypothyroidism vs SIADH vs Malignancy Na 109 on initial presentation Patient is AOx3, no AMS and no signs of seizure Urine Na 138.5 and Urine osm 390 Urine Na and Osm compatible with glucocorticoid deficiency vs hypothyroid Plan: - Fluid restriction - Monitor I/Os - q4h Na checks - Nephrology consulted (2) Weakness Current Visit: No Status: Acute Assessment and plan: Most likely secondary to Hyponatremia CXR negative D-Dimer negative in ED (3) Elevated TSH Current Visit: Yes Status: Acute Assessment and plan: Hx of Hypothyroidism and currently on Synthroid Patient states she is compliant From history, it appears patient doesn't follow up regularly for her health problems and may need to be on higher dose of synthroid Plan: - Consider increasing synthroid - Continue to monitor (4) Acute urinary retention Current Visit: Yes Status: Acute Assessment and plan: C/o suprapubic pressure and difficulty with urination UA in ED was negative Bedside US performed by myself showed >1000cc's in patient bladder Post-void volume remained same with no UOP Placement of xie cath revealed > 1000cc UOP Clamped after 1L to prevent post-obstructive diuresis In setting of failure to f/u with cervical CA, concern is for mass lesions causing outlet obstruction Plan: - CT Abd/Pelvis with IV contrast (5) Hypokalemia Current Visit: Yes Status: Acute Assessment and plan: Suspect secondary to hypervolemia from bladder output obstruction causing dilution Plan: - Continue to monitor and replace - Electrolyte protocol (6) DVT prophylaxis Current Visit: No Status: Acute Assessment and plan: Lovenox 40 SQ - Time Spent With Patient Total time spent is greater than 50% in coordination of care (as documented) at patient's floor/unit and/or counseling patient: <Juwan Proctor - Last Filed: 09/11/18 06:41> Date of Encounter: 09/10/18 Internal Medicine - H&P: HPI History of present illness: Ms. Tellez is a 62 year old female All Systems PM: A 10-system review of systems was performed and is negative for pertinent findings except as documented above in the HPI. - Constitutional Vitals: Temp Pulse Resp BP Pulse Ox 98.2 F 90 14 109/72 96 09/11/18 04:00 09/11/18 06:00 09/11/18 06:00 09/11/18 06:00 09/11/18 06:00 Internal Med - H&P Results - Labs CBC & Chem 7: 09/11/18 00:17 09/11/18 02:58 Labs: Short CBC 09/10/18 09/11/18 Range/Units 19:20 00:17 WBC 7.6 7.5 (4.3-11.1) K/mcL Hgb 10.2 L 9.5 L (11.5-15.4) g/dL Hct 30.0 L 27.7 L (35.3-44.9) % Plt Count 229 216 (140-400) K/mcL Neutrophils # 5.7 5.7 (1.6-8.9) K/mcL BMP 09/10/18 09/10/18 09/11/18 19:20 21:07 00:17 Sodium 108 L* 109 L* 107 L* Potassium 3.0 L 2.9 L 3.3 L Chloride 76 L 76 L 77 L Carbon Dioxide 23 21 L 20 L BUN 4 L 4 L 6 L Creatinine 0.51 L 0.49 L 0.51 L Glucose 98 96 100 Calcium 8.7 8.5 L 8.7 09/11/18 02:58 Sodium 112 L* Potassium 3.4 L Chloride 80 L Carbon Dioxide 21 L BUN 5 L Creatinine 0.46 L Glucose 98 Calcium 8.5 L Cardiac Enzymes 09/10/18 Range/Units 19:20 Troponin I < 0.03 (< 0.04) ng/mL Urine 09/10/18 Range/Units 20:28 Urine Color Yellow (Yellow) Urine Clarity Clear (Clear) Urine pH 7.5 (5.0-8.0) pH Units Ur Specific [place] < 1.005 L (1.010-1.025) Urine Protein Negative (Neg-Trace) mg/dL Urine Glucose (UA) Normal (Normal) mg/dL - Impressions ITS Impressions Chest X-Ray 09/10/18 18:01 IMPRESSION: No acute cardiopulmonary disease. D/ / Jm Arredondo MD / Jm Arredondo MD Interpreting Provider: Jm Arredondo MD Abdomen/Pelvis CT 09/11/18 03:09 IMPRESSION: Xie catheter in the urinary bladder. No focal urinary bladder wall thickening. No hydronephrosis or urinary calculi. Focal 2.0 cm area of heterogeneous attenuation with calcification in the region of the left lower uterine segment. This may represent a uterine fibroid could be further evaluated with pelvic ultrasound. Colonic diverticulosis without evidence of acute diverticulitis. No bowel obstruction. D/ / Dez Bates / Dez Bates Interpreting Provider: Dez Bates - Time Spent With Patient Total time spent is greater than 50% in coordination of care (as documented) at patient's floor/unit and/or counseling patient: - Attending Attestation I saw and evaluated the patient. I reviewed the residents note, performed my own physical examination and agree with findings and plan as documented in the residents note. Patient seen and examined on 09/11/18. Patient found to have severe hyponatremia. Most recent recheck 112 on fluid restriction. Consulting nephrology, monitor BMPs every 4 hours. Patient has elevated TSH which could be contributing, likely will need adjustment of her synthroid at discharge. Patient overall stable at this time. Patient also stated to me that she drinks about a gallon of water daily. CT abdomen showed 2.0cm attenuation with calcification in the left lower uterine segment which could represent a uterine fibroid. Recommended pelvic ultrasound. This could be contributing to her urinary retention.
[2018-09-11 00:45] LABS: Basophils % 0.1 %; Eosinophils # 0.1 K/mcL (0.0-0.6); Eosinophils % 1.5 %; Hematocrit 27.7 % (35.3-44.9); Hemoglobin 9.5 g/dL (11.5-15.4); Immature Granulocytes % 0.5 % (0-4); Lymphocytes % 12.8 %; Mean Corpuscular HGB Conc 34.3 g/dL (31.6-35.5); Mean Corpuscular Hemoglobin 26.7 pg (28.0-33.3); Mean Corpuscular Volume 77.8 fL (83.0-100.0); Mean Platelet Volume 9.3 fL (9.4-12.4); Monocytes # 0.7 K/mcL (0.0-1.3); Monocytes % 9.1 %; Neutrophils # 5.7 K/mcL (1.6-8.9); Platelet Count 216 K/mcL (140-400); Red Blood Count 3.56 M/mcL (3.82-4.97); Red Cell Distribution Width 15.9 % (11.5-14.5)
[2018-09-11 01:27] LABS: BUN/Creatinine Ratio 12 (6-26); Blood Urea Nitrogen 6 mg/dL (8-23); Calcium 8.7 mg/dL (8.6-10.3); Carbon Dioxide 20 mEq/L (23-29); Chloride 77 mEq/L (98-107); Glucose 100 mg/dL (70-105); Osmolality,Calculated 222 (280-300); Potassium 3.3 mEq/L (3.5-5.1); Sodium 107 mEq/L (136-145); eGFR For Non-African Americans > 60 (> 60)
[2018-09-11] MEDS ORDERED: 0.9 % Sodium Chloride 1,000 ML IVC SCH (02:15)
[2018-09-11] MEDS ORDERED: OXYCODONE Oral CONC 10 MG/0.5 ML ORAL.SYG SL STA (02:20)
[2018-09-11] MEDS ORDERED: Isovue-370 500 ML INFUS..BTL IV ONE (03:09)
[2018-09-11 03:38] LABS: BUN/Creatinine Ratio 11 (6-26); Blood Urea Nitrogen 5 mg/dL (8-23); Calcium 8.5 mg/dL (8.6-10.3); Carbon Dioxide 21 mEq/L (23-29); Chloride 80 mEq/L (98-107); Glucose 98 mg/dL (70-105); Osmolality,Calculated 231 (280-300); Potassium 3.4 mEq/L (3.5-5.1); Sodium 112 mEq/L (136-145); eGFR For Non-African Americans > 60 (> 60)
[2018-09-11] MEDS ORDERED: *HR* Enoxaparin 40 MG/0.4 ML SYRINGE SQ SCH (07:00)
--- NOTE | 2018-09-11 08:10 | Internal Med Progress Note ---
Hospitalist Progress Note - Encounter Date of Encounter: 09/11/18 Time of Encounter: 08:08 - Subjective Interval History: Patient seen and examined this morning. No acute overnight events. Denies new complains. Feeling better. has xie catheter clamped. Breathing better. - Exam Vitals: Temp Pulse Resp BP Pulse Ox 98.2 F 90 14 109/72 96 09/11/18 04:00 09/11/18 06:00 09/11/18 06:00 09/11/18 06:00 09/11/18 06:00 Exam: Constitutional: Vitals as noted. Conversant. No Apparent Distress. ENT : Grossly normal hearing. Oropharyngeal exam unremarkable. Moist mucus membranes. No JVD, no cervical lymphadenopathy. no thyromegaly or mass. Respiratory : Clear to auscultation bilaterally. No accessory muscle use, rales, rhonchi or wheezes Cardiovascular : RRR, +S1, +S2. no murmur, gallop, rubs. No chest wall tenderness GI/Abdominal : Soft, Non-tender, Non-distended, normal bowel sounds, soft, no peritoneal signs. no orgenomegaly or mass appreciated. no hernia. Musculoskeletal: no deformity noted. no edema or cyanosis. warm extremities, pulses palpable and symmetrical in UE/LE. no calf tenderness. Neurological: AO X3, CN II-XII grossly intact, grossly normal motor and sensory exam. Skin: No skin rash, lesions or ulcers noted. Pych: Good insight and judgement. Intact memory. AOx3. - Assessment and Plan (1) Acute urinary retention Current Visit: Yes Status: Acute (2) Anemia Current Visit: Yes Status: Acute (3) Elevated TSH Current Visit: Yes Status: Acute (4) Hypokalemia Current Visit: Yes Status: Acute (5) Hyponatremia Current Visit: Yes Status: Acute (6) History of pulmonary embolism Current Visit: No Status: Acute (7) Hypertension Current Visit: No Status: Acute - Summary of Assessment and Plan Summary of Assessment and Plan: Hyponatremia - Not hypervolemic. Decrease PO intake for past few days - AOx3, no AMS and no signs of seizure. Likely chronic - q4hr BMP. Goal of Na increase of 6-8 over 24 hr. Keep NPO - Urine Na 138.5 and Urine osm 390 on presentation. f/u Serum osmolality and lipid panel. Normal glucose - Likely multifactorial. Hypothyroidism vs SIADH. random am cortisol normal. - c/w Fluid restriction. Monitor I/Os. Keep NPO for now - Nephrology consulted Weakness - likely secondary to Hyponatremia vs hypothyroidism - CXR, troponin, EKG and D-Dimer WNL - On apixaban at home and compliant. Acute urinary retention - Bedside bladder US with >1000cc - Post-void volume remained same with no UOP - s/p xie with > 1000cc UOP - Clamped after 1L to prevent post-obstructive diuresis - h/o Cervical Ca in past. CT Abd/Pelvis with uterine lesion. Pelvis ultrasound ordered. - Possibly from anticholinergic effects from pyschotropic medication vs obstructive casue. - Will consult Urology Anemia - appears chronic - stable. no signs of bleeding - Monitor for now Elevated TSH - compliant but misses few doses - Start thyroxin once confirmed. Will consider increasing dosage after. h/o PE - c/w apixaban once confirmed. Anxiety - c/w home medication once confirmed. Hypokalemia, Hypomagnesemia - repleted - f/u BMP DVT prophylaxis - Lovenox 40 SQ. Will dc if apixaban started. - Time Spent with Patient Total time spent is greater than 50% in coordination of care (as documented) at patient's floor/unit and/or counseling patient: Internal Medicine: Result - Labs CBC & Chem 7: 09/11/18 00:17 09/11/18 02:58 Labs: Short CBC 09/10/18 09/11/18 Range/Units 19:20 00:17 WBC 7.6 7.5 (4.3-11.1) K/mcL Hgb 10.2 L 9.5 L (11.5-15.4) g/dL Hct 30.0 L 27.7 L (35.3-44.9) % Plt Count 229 216 (140-400) K/mcL Neutrophils # 5.7 5.7 (1.6-8.9) K/mcL BMP 09/10/18 09/10/18 09/11/18 19:20 21:07 00:17 Sodium 108 L* 109 L* 107 L* Potassium 3.0 L 2.9 L 3.3 L Chloride 76 L 76 L 77 L Carbon Dioxide 23 21 L 20 L BUN 4 L 4 L 6 L Creatinine 0.51 L 0.49 L 0.51 L Glucose 98 96 100 Calcium 8.7 8.5 L 8.7 09/11/18 02:58 Sodium 112 L* Potassium 3.4 L Chloride 80 L Carbon Dioxide 21 L BUN 5 L Creatinine 0.46 L Glucose 98 Calcium 8.5 L Cardiac Enzymes 09/10/18 Range/Units 19:20 Troponin I < 0.03 (< 0.04) ng/mL Urine 09/10/18 Range/Units 20:28 Urine Color Yellow (Yellow) Urine Clarity Clear (Clear) Urine pH 7.5 (5.0-8.0) pH Units Ur Specific [place] < 1.005 L (1.010-1.025) Urine Protein Negative (Neg-Trace) mg/dL Urine Glucose (UA) Normal (Normal) mg/dL - ABG Interpretation ABG results: PT/INR, D-dimer PT 14.0 Seconds (9.4-12.1) H 09/10/18 19:20 D-Dimer 446 ng/mLFEU (0-500) 09/10/18 19:20 - Impressions Impressions Chest X-Ray 09/10/18 18:01 IMPRESSION: No acute cardiopulmonary disease. D/ / Jm Arredondo MD / Jm Arredondo MD Interpreting Provider: Jm Arredondo MD Abdomen/Pelvis CT 09/11/18 03:09 IMPRESSION: Xie catheter in the urinary bladder. No focal urinary bladder wall thickening. No hydronephrosis or urinary calculi. Focal 2.0 cm area of heterogeneous attenuation with calcification in the region of the left lower uterine segment. This may represent a uterine fibroid could be further evaluated with pelvic ultrasound. Colonic diverticulosis without evidence of acute diverticulitis. No bowel obstruction. D/ / Dez Bates / Dez Bates Interpreting Provider: Dez Bates Consult Discharge Plan - Plan Referrals: NONE,PCP [Primary Care Provider] - (2) Anemia Qualifiers: Anemia type: unspecified type Qualified Code(s): D64.9 - Anemia, unspecified (7) Hypertension Qualifiers: Hypertension type: essential hypertension Qualified Code(s): I10 - Essential (primary) hypertension
[2018-09-11 09:28] LABS: Chol/HDL Ratio 1.8 (0-4.9)
[2018-09-11 09:30] LABS: BUN/Creatinine Ratio 11 (6-26); Blood Urea Nitrogen 5 mg/dL (8-23); Calcium 8.8 mg/dL (8.6-10.3); Carbon Dioxide 24 mEq/L (23-29); Chloride 85 mEq/L (98-107); Glucose 93 mg/dL (70-105); Osmolality,Calculated 237 (280-300); Sodium 115 mEq/L (136-145); eGFR For Non-African Americans > 60 (> 60)
--- NOTE | 2018-09-11 10:01 | Nephrology Consult Note ---
Addendum entered and electronically signed by Juwan Marroquin DO 09/11/18 17:18: I examined this patient and my medical decision-making was reviewed with the Resident Physician. I agree with the documented findings, disposition and treatment plan as described except to the extent set forth below. Asymptomatic hyponatremia, and recommend slowly raising the PNa safely about 6-8 mEq in the first 24hr. So I had to add D5W to slow the hyponatremia. Will continue to closely follow with you. Original Note: Date of Encounter: 09/11/18 Time of Encounter: 08:02 Assessment and Plan (1) Hyponatremia Current Visit: Yes Status: Acute - Severe hyponatremia on presentation at 108 - Most recently has improved to 115 - Had maintenence NS ordered but this has been discontinued - Appears euvolemic on exam. - Etiology unclear, but suspect SIADH in the setting of former cancer as well as multiple psychiatric medications - TSH was noted to be elevated at 6.728, however I would expect a more severe hypothyroidism to cause this hyponatremia - Random cortisol WNL at 14.8 - Serum osmolality low at 222 - Urine studies show a urine osmolality of 390, urine sodium of 138.5. Urine was notably very dilute and patient has urinary retention Plan - Given patient has risen 7 since admission, we will liberate her fluid restriction - Goal correction is 6-8 per day - Every 4 hours sodium checks - If she continues to rise too quickly, we will consider 0.45 saline to slow correction - Encourage oral intake at this time - Patient voices noncompliance with Synthroid administration, will encourage taking it every day 1300: Patient sodium adelita to 120. Will start D5W as she is correcting too quickly. Continue q4 hour Na checks (2) Hypertension Current Visit: Yes Status: Acute -Currently well controlled at 112/80 - Appears euvolemic - Not currently on antihypertensives. Qualifiers: Hypertension type: essential hypertension Qualified Code(s): I10 - Essential (primary) hypertension (3) Hypokalemia Current Visit: Yes Status: Acute Potassium of 3.0 on admission which is improved 3.3 On electrolyte protocol Continue monitor (4) Anemia Current Visit: Yes Status: Acute - Hemoglobin noted at 9.5 most recently - Baseline appears to be 9-10 - MCV of 77, consider iron deficiency workup - No immediate need for transfusion - Transfusion parameters per primary team Qualifiers: Anemia type: unspecified type Qualified Code(s): D64.9 - Anemia, unspecified (5) Elevated TSH Current Visit: Yes Status: Acute TSH of 6.728 - patient admits to not taking her Synthroid daily as she is not always able to have an empty stomach - Compliance was encouraged - Is reporting minimal symptoms except for weakness - Continue home Synthroid dose (6) Hypochloremia Current Visit: Yes Status: Acute As above for hyponatremia Improved from 77 to 85 History of Present Illness - Reason for Consult Consult date: 09/11/18 hyponatremia - Chief Complaint weakness - History of Present Illness Mrs. Tellez is a 62-year-old female who presented to the emergency department on 09/10/18 with complaint of weakness, shortness of breath 4 days. Nephrology was consulted on same date for concerns of hyponatremia. Patient has a past medical history of pulmonary embolism on eliquis, COPD, hypertension, cervical cancer, hypothyroidism. She reports that she has been feeling weak, short of breath 4 days. She states she is following this one time previously when she was diagnosed with a pulmonary embolism. She states she does have associated chest pressure which is improved since admission. She does have a cough which is nonproductive in nature. She denies any symptoms of confusion, numbness, tingling, nausea, vomiting, abdominal pain. She does admit to some urinary hesitancy but denies dysuria, hematuria, frothy urine. Per nursing report, she did receive a Weaver catheter in the emergency room was 1300 mL of output. Patient denies recent changes in medication or travel. She states that she does at times forget to take her Synthroid. On presentation to the emergency room, vital signs are significant for blood pressure 137/91 and heart rate of 98. Laboratory results were significant for hemoglobin 9.5, sodium of 108, potassium 3.0, chloride 77, bicarbonate 20, BUNs/creatinine of 6/0.51. Serum osmolality low at 222, calcium 8.5, phosphorus 2.2, magnesium 1.5, TSH elevated at 6.728, cortisol within normal limits at 14.8. Urine studies were obtained and specific gravity was low with trace blood and no evidence of infection. Urine osmoles of 390 and urine sodium of 138.5. CTA was obtained and showed no evidence of pulmonary embolism. Today during interview, patient states that she continues to feel a little weak but has improved since admission. Continues to deny any symptoms of fevers, chi lls, nausea, vomiting. Her biggest complaint at this time is that she is hungry. Past Med Surg Social Fam HX - Past Medical History Medical history: COPD, hypertension, pulmonary embolus Additional medical history: tachycardia Psychiatric history: no psych history - Past Surgical History Surgical History: no surgical history Additional surgical history: Tonsillectomy - Social History Smoking Status: 2nd Hand Smoke Exposure Smokeless Tobacco Status: No Alcohol use: occasionally, recent Drug use: none - Family History Mother Hx Family Respiratory Disorders: Yes (asthma/COPD) Hx Family Cancer: Yes (skin) Medications and Allergies Carvedilol 12.5 mg PO BID 06/28/18 [History] Cyclobenzaprine [Flexeril] 10 mg PO BID PRN 06/28/18 [History] Levothyroxine [Synthroid] 50 mcg PO QAM 06/28/18 [History] Topiramate [Topamax] 25 mg PO BID 06/28/18 [History] Venlafaxine [Effexor] 75 mg PO BID 06/28/18 [History] Apixaban [Eliquis] 5 mg PO BID 09/11/18 [History] Docusate [Colace] 100 mg PO BID PRN 09/11/18 [History] SUMAtriptan succinate [Imitrex] 25 mg PO BID PRN 09/11/18 [History] Allergy/AdvReac Type Severity Reaction Status Date / Time No Known Allergies Allergy Verified 09/11/18 12:57 Review of Systems All Systems review (narrative): - Constitutional: Admits to fatigue. Denies fevers, chills, weight loss, - Head/Neck: Denies MUELLER, neck stiffness - EENT: Denies vision changes/blurriness, - CVS: Admits to chest pressure. Denies palpitations, JEFFERS, orthopnea, edema, PND, - Pulm: Admits to shortness of breath. Cough. Denies sputum, hematemesis, wheezing - GI: Denies abdominal pain, anorexia, nausea, vomiting, diarrhea, constipation, melena - : Admits to urinary hesitancy. Denies dysuria, increased frequency, urgency, hematuria, - Skin: Denies rashes, ulcers, color changes, - Neuro: Denies MUELLER, paresthesias, focal deficits, ataxia, Exam - Vital Signs Vital signs: Initial Vital Signs Temp Pulse Resp BP Pulse Ox 99.0 F 98 18 137/91 99 09/10/18 18:18 09/10/18 18:18 09/10/18 18:18 09/10/18 18:18 09/10/18 18:18 Vital Signs - Last 8 Hours Temp Pulse Resp BP Pulse Ox 09/11/18 09:13 98.1 F 09/11/18 08:00 92 112/80 97 09/11/18 07:00 98.1 F 92 15 102/83 95 09/11/18 06:00 90 14 109/72 96 09/11/18 05:11 101 18 127/89 96 09/11/18 04:00 98.2 F 95 15 135/82 98 09/11/18 03:00 97 26 137/81 96 09/11/18 02:00 97 16 132/87 96 Intake and Output 09/10/18 09/11/18 09/11/18 23:59 07:59 15:59 Intake Total 612 / 612 Output Total 3475 / 3475 Balance -2863 / -2863 Intake: IV Fluids 612 / 612 Calcium Gluconate 1,000 MG In 0 110 / 110 .9 % Sodium Chloride 100 ML @ 220 mls/hr IVPB Q6HR PRN Rx#: [id number] Magnesium Sulfate 1 GM In 0.9 % 102 / 102 Sodium Chloride 100 ML @ 100 mls/hr IVPB ONCE ONE Rx#: [id number] Potassium Chloride 10 mEq/100mL 400 / 400 10 meq In 100 ml @ 100 mls/hr IVPB Q1H SHIRA Rx#:[id number] Output: Catheter 3475 / 3475 Urethral (Weaver) 3075 / 3075 Other: Weight 102.625 kg 102.4 kg Blood Glucose* 110 Patient Weight 09/11/18 23:59 Weight 102.4 kg - General Appearance Exam: Gen.: Vitals noted. No acute distress. AAOx3, resting comfortably in bed. HEENT: PERRL/EOMI, oropharynx clear, Normocephalic, atraumatic, MMM Cardiac: RRR, no murmur, +S1/S2, No BLE edema Pulmonary: CTA bilaterally, no wheezes, rales or rhonchi, equal chest expansion, unlabored breathing Abdomen: soft, nontender, BS noted, no guarding, no palpable HSM : Weaver catheter in place with light yellow urine, 500 mL Skin: warm and dry, no visible lesions. MSK: ROM not assessed, no joint swelling noted, gait no assessed while in bed. Non tender calf or clubbing Neuro: A&Ox3, moves all extremities, no focal deficits, sensation intact Psych: Appropriate mood and behavior, AOx3 Results - Lab Results 09/11/18 00:17 09/11/18 11:35 Most recent lab results Calcium 8.8 mg/dL (8.6-10.3) 09/11/18 08:51 Phosphorus 2.2 mg/dL (2.7-4.5) L 09/10/18 21:07 Magnesium 1.9 mg/dL (1.6-2.6) 09/11/18 03:07 Urine Sodium 138.5 mEq/L 09/10/18 20:32 Consult Discharge Plan - Plan Referrals: NONE,PCP [Primary Care Provider] -
[2018-09-11 11:53] LABS: VBG Ionized Calcium 1.09 mmol/L (1.15-1.35)
[2018-09-11 12:43] LABS: BUN/Creatinine Ratio 9 (6-26); Blood Urea Nitrogen 5 mg/dL (8-23); Calcium 8.5 mg/dL (8.6-10.3); Carbon Dioxide 24 mEq/L (23-29); Chloride 87 mEq/L (98-107); Glucose 90 mg/dL (70-105); Magnesium 2.3 mg/dL (1.6-2.6); Osmolality,Calculated 247 (280-300); Phosphorous 2.6 mg/dL (2.7-4.5); Potassium 3.2 mEq/L (3.5-5.1); Sodium 120 mEq/L (136-145); eGFR For Non-African Americans > 60 (> 60)
[2018-09-11] MEDS ORDERED: D5% in Water 1,000 ML IVC SCH ×2 (13:15→17:15)
--- NOTE | 2018-09-11 14:36 | Electrocardiograph Report ---
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
[2018-09-11] MEDS ORDERED: Levothyroxine Sodium 100 MCG VIAL IVP ONE (15:21)
--- NOTE | 2018-09-11 15:57 | Urology - Consult Note ---
Addendum entered and electronically signed by Mauricio Guaman MD 09/11/18 17:33: The patient was seen and examined with the physician's nursing home assistant. I agree with the assessment and plan. She has had some difficulty voiding. I recommend continuing the catheter for now. As she gets closer to the day of discharge, we can consider removal of catheter and seeing if she can urinate on her own. Alternatively, she can follow up in the clinic for a voiding trial after di scharge. Urology will follow along. Original Note: Date of Encounter: 09/11/18 Time of Encounter: 15:55 - Assessment and Plan (1) Acute urinary retention Current Visit: Yes Status: Acute Assessment and plan: Patient is a 62-year-old female who presents with acute urinary retention. Patient describes a history of chronic hesitancy, but she has never required straight catheterization or an indwelling Weaver in the past. Discussed previous back and pelvic injury may contribute to urinary symptoms. We will plan to continue with indwelling Weaver catheter for 7-10 days and proceed with outpatient voiding trial. Urology CN:KIRA Consult date: 09/11/18 Reason for consult Urology: Other (urinary retention) History of present illness: Patient is a 62-year-old female who presents with acute urinary retention. Patient was admitted through the emergency department with complaints of dyspnea and progressive weakness. Patient has a very significant past medical history for pulmonary embolism, hyponatremia, cervical cancer, COPD. Patient reports a chronic history of urinary hesitancy over the last 2 years, but she attributes this to her anxiety. Patient was involved in a horseback riding accident that resulted in a broken pelvis and lumbar disc injury many years ago. Patient denies saddle paresthesia, dysuria, frequency, urgency, incontinence, gross hematuria, or change in bowel habits. Patient has no significant past urologic history, and she does not follow with urology. Patient denies a personal histor y of renal stones or malignancy, other than cervical cancer. Patient denies any known family history of renal stones or malignancy. Currently, Weaver catheter is indwelling and draining clear urine into bedside bag. Patient denies any catheter discomfort or feeling of obstruction. Past Med Surg Social Fam HX - Past Medical History Medical history: COPD, hypertension, pulmonary embolus Additional medical history: tachycardia Psychiatric history: no psych history - Past Surgical History Surgical History: no surgical history Additional surgical history: Tonsillectomy - Social History Smoking Status: 2nd Hand Smoke Exposure Smokeless Tobacco Status: No Alcohol use: occasionally, recent Drug use: none - Family History Mother Hx Family Respiratory Disorders: Yes (asthma/COPD) Hx Family Cancer: Yes (skin) Medications and Allergies Carvedilol 12.5 mg PO BID 06/28/18 [History] Cyclobenzaprine [Flexeril] 10 mg PO BID PRN 06/28/18 [History] Levothyroxine [Synthroid] 50 mcg PO QAM 06/28/18 [History] Topiramate [Topamax] 25 mg PO BID 06/28/18 [History] Venlafaxine [Effexor] 75 mg PO BID 06/28/18 [History] Apixaban [Eliquis] 5 mg PO BID 09/11/18 [History] Docusate [Colace] 100 mg PO BID PRN 09/11/18 [History] SUMAtriptan succinate [Imitrex] 25 mg PO BID PRN 09/11/18 [History] Allergy/AdvReac Type Severity Reaction Status Date / Time No Known Allergies Allergy Verified 09/11/18 12:57 Review of Systems - Constitutional weakness, no chills, no fatigue, no fever(s) - EENT Nose, mouth and throat: no dizziness, no headache(s) - Cardiovascular dyspnea, no chest pain, no diaphoresis - Respiratory cough, dyspnea - Gastrointestinal no abdominal pain, no nausea, no vomiting - Genitourinary Genitourinary: change in urinary stream, difficulty urinating, urinary hesitancy, no dysuria, no flank pain, no hematuria, no urinary frequency, no urinary incontinence, no urinary urgency - Integumentary no erythema, no rash - Neurological no confusion, no syncope - Psychiatric no anxiety, no confusion - Hematologic/Lymphatic no easy bleeding, no easy bruising - Allergic/Immunologic no throat swelling, no wheezing Exam Initial Vital Signs Temp Pulse Resp BP Pulse Ox 99.0 F 98 18 137/91 99 18 18:18 18 18:18 09/10/18 18:18 09/10/18 18:18 09/10/18 18:18 - General physical appearance Present: well developed, no distress, no pain - Eyes Present: PERRL, normal ocular movement - ENT Present: normal nares, no hearing loss, no congestion - Neck Present: no masses, trachea midline - Respiratory Present: normal respiratory effort - Cardiovascular Cardiovascular exam IM: RRR - Abdomen Abdomen: Present: soft, non tender - Genitourinary Present: other (Weaver catheter indwelling and draining clear urine into bedside bag) - Integumentary Present: no rash, no abnormal pigmentation - Neurologic Present: normal coordination Urology Results - Labs 09/11/18 00:17 09/11/18 11:35 Abnormal lab results RBC 3.56 M/mcL (3.82-4.97) L 09/11/18 00:17 Hgb 9.5 g/dL (11.5-15.4) L 09/11/18 00:17 Hct 27.7 % (35.3-44.9) L 09/11/18 00:17 MCV 77.8 fL (83.0-100.0) L 09/11/18 00:17 MCH 26.7 pg (28.0-33.3) L 09/11/18 00:17 RDW 15.9 % (11.5-14.5) H 09/11/18 00:17 MPV 9.3 fL (9.4-12.4) L 09/11/18 00:17 PT 14.0 Seconds (9.4-12.1) H 09/10/18 19:20 APTT 38.1 Seconds (26.0-36.0) H 09/10/18 19:20 Sodium 120 mEq/L (136-145) L* 09/11/18 11:35 Potassium 3.2 mEq/L (3.5-5.1) L 09/11/18 11:35 Chloride 87 mEq/L (98-107) L 09/11/18 11:35 BUN 5 mg/dL (8-23) L 09/11/18 11:35 Creatinine 0.54 mg/dL (0.60-1.20) L 09/11/18 11:35 POC Glucose 104 mg/dL (70-99) H 09/11/18 11:36 Serum Osmolality 242 mOsm/kg (280-300) L 09/11/18 08:51 Calculated Osmolality 247 (280-300) L 09/11/18 11:35 Calcium 8.5 mg/dL (8.6-10.3) L 09/11/18 11:35 Venous Ioniz Calcium 1.09 mmol/L (1.15-1.35) L 09/11/18 11:51 Phosphorus 2.6 mg/dL (2.7-4.5) L 09/11/18 11:35 HDL Cholesterol 80 mg/dL (40-59) H 09/11/18 08:51 TSH 6.728 mcIU/mL (0.340-5.600) H 09/10/18 21:07 Ur Specific [place] < 1.005 (1.010-1.025) L 09/10/18 20:28 Urine Ketones 15 mg/dL (Negative) H 09/10/18 20:28 Urine Blood Trace (Negative) H 09/10/18 20:28 Ur Leukocyte Esterase Small (Negative) H 09/10/18 20:28 Urine Microscopic RBC 5-15 per hpf (0-3) H 09/10/18 20:28 Urine Microscopic WBC 3-5 per hpf (0-3) H 09/10/18 20:28 Ur Squamous Epith Cells Many per lpf (None-Few) H 09/10/18 20:28 Ur Culture Indicated? NO. (NO) A 09/10/18 20:28 [place] < 0.1 mEq/L (0.6-1.2) L 09/10/18 19:20 Diabetes panel 09/10/18 09/10/18 09/11/18 Range/Units 19:20 21:07 00:17 Sodium 108 L* 109 L* 107 L* (136-145) mEq/L Potassium 3.0 L 2.9 L 3.3 L (3.5-5.1) mEq/L Chloride 76 L 76 L 77 L (98-107) mEq/L Carbon Dioxide 23 21 L 20 L (23-29) mEq/L BUN 4 L 4 L 6 L (8-23) mg/dL Creatinine 0.51 L 0.49 L 0.51 L (0.60-1.20) mg/dL Glucose 98 96 100 (70-105) mg/dL Calcium 8.7 8.5 L 8.7 (8.6-10.3) mg/dL Triglycerides (< 150) mg/dL HDL Cholesterol (40-59) mg/dL 09/11/18 09/11/18 09/11/18 Range/Units 02:58 08:51 08:51 Sodium 112 L* 115 L* (136-145) mEq/L Potassium 3.4 L 3.0 L (3.5-5.1) mEq/L Chloride 80 L 85 L (98-107) mEq/L Carbon Dioxide 21 L 24 (23-29) mEq/L BUN 5 L 5 L (8-23) mg/dL Creatinine 0.46 L 0.47 L (0.60-1.20) mg/dL Glucose 98 93 (70-105) mg/dL Calcium 8.5 L 8.8 (8.6-10.3) mg/dL Triglycerides 56 (< 150) mg/dL HDL Cholesterol 80 H (40-59) mg/dL 09/11/18 Range/Units 11:35 Sodium 120 L* (136-145) mEq/L Potassium 3.2 L (3.5-5.1) mEq/L Chloride 87 L (98-107) mEq/L Carbon Dioxide 24 (23-29) mEq/L BUN 5 L (8-23) mg/dL Creatinine 0.54 L (0.60-1.20) mg/dL Glucose 90 (70-105) mg/dL Calcium 8.5 L (8.6-10.3) mg/dL Triglycerides (< 150) mg/dL HDL Cholesterol (40-59) mg/dL Thyroid panel 09/10/18 Range/Units 21:07 TSH 6.728 H (0.340-5.600) mcIU/mL Calcium panel 09/10/18 09/10/18 09/11/18 Range/Units 19:20 21:07 00:17 Calcium 8.7 8.5 L 8.7 (8.6-10.3) mg/dL Phosphorus 2.2 L (2.7-4.5) mg/dL 09/11/18 09/11/18 09/11/18 Range/Units 02:58 08:51 11:35 Calcium 8.5 L 8.8 8.5 L (8.6-10.3) mg/dL Phosphorus 2.6 L (2.7-4.5) mg/dL Pituitary panel 09/10/18 09/10/18 09/11/18 Range/Units 19:20 21:07 00:17 Sodium 108 L* 109 L* 107 L* (136-145) mEq/L Potassium 3.0 L 2.9 L 3.3 L (3.5-5.1) mEq/L Chloride 76 L 76 L 77 L (98-107) mEq/L Carbon Dioxide 23 21 L 20 L (23-29) mEq/L BUN 4 L 4 L 6 L (8-23) mg/dL Creatinine 0.51 L 0.49 L 0.51 L (0.60-1.20) mg/dL Glucose 98 96 100 (70-105) mg/dL Calcium 8.7 8.5 L 8.7 (8.6-10.3) mg/dL TSH 6.728 H (0.340-5.600) mcIU/mL 09/11/18 09/11/18 09/11/18 Range/Units 02:58 08:51 11:35 Sodium 112 L* 115 L* 120 L* (136-145) mEq/L Potassium 3.4 L 3.0 L 3.2 L (3.5-5.1) mEq/L Chloride 80 L 85 L 87 L (98-107) mEq/L Carbon Dioxide 21 L 24 24 (23-29) mEq/L BUN 5 L 5 L 5 L (8-23) mg/dL Creatinine 0.46 L 0.47 L 0.54 L (0.60-1.20) mg/dL Glucose 98 93 90 (70-105) mg/dL Calcium 8.5 L 8.8 8.5 L (8.6-10.3) mg/dL TSH (0.340-5.600) mcIU/mL Adrenal panel 09/10/18 09/10/18 09/11/18 Range/Units 19:20 21:07 00:17 Sodium 108 L* 109 L* 107 L* (136-145) mEq/L Potassium 3.0 L 2.9 L 3.3 L (3.5-5.1) mEq/L Chloride 76 L 76 L 77 L (98-107) mEq/L Carbon Dioxide 23 21 L 20 L (23-29) mEq/L BUN 4 L 4 L 6 L (8-23) mg/dL Creatinine 0.51 L 0.49 L 0.51 L (0.60-1.20) mg/dL Glucose 98 96 100 (70-105) mg/dL Calcium 8.7 8.5 L 8.7 (8.6-10.3) mg/dL 09/11/18 09/11/18 09/11/18 Range/Units 02:58 08:51 11:35 Sodium 112 L* 115 L* 120 L* (136-145) mEq/L Potassium 3.4 L 3.0 L 3.2 L (3.5-5.1) mEq/L Chloride 80 L 85 L 87 L (98-107) mEq/L Carbon Dioxide 21 L 24 24 (23-29) mEq/L BUN 5 L 5 L 5 L (8-23) mg/dL Creatinine 0.46 L 0.47 L 0.54 L (0.60-1.20) mg/dL Glucose 98 93 90 (70-105) mg/dL Calcium 8.5 L 8.8 8.5 L (8.6-10.3) mg/dL All other labs normal. Consult Discharge Plan - Plan Referrals: Denzel Crawford DO [Non-Partnered Physician] - 09/24/18 3:30 pm
[2018-09-11] MEDS: Acetaminophen 325 MG TABLET PO PRN (17:32)
[2018-09-11] MEDS: Apixaban 5 MG TABLET PO SCH (20:02)
[2018-09-11] MEDS: Topiramate 25 MG TABLET PO SCH (20:02)
[2018-09-11] MEDS: D5% in Water 1,000 ML IVC SCH ×2 (21:33→23:19)
[2018-09-12] MEDS: Acetaminophen 325 MG TABLET PO PRN ×2 (00:39→11:29)
[2018-09-12 05:19] LABS: BUN/Creatinine Ratio 13 (6-26); Blood Urea Nitrogen 7 mg/dL (8-23); Calcium 8.5 mg/dL (8.6-10.3); Carbon Dioxide 24 mEq/L (23-29); Chloride 90 mEq/L (98-107); Glucose 123 mg/dL (70-105); Osmolality,Calculated 253 (280-300); Potassium 3.3 mEq/L (3.5-5.1); Sodium 122 mEq/L (136-145); eGFR For Non-African Americans > 60 (> 60)
[2018-09-12] MEDS: Topiramate 25 MG TABLET PO SCH ×2 (08:12→19:53)
[2018-09-12] MEDS: Apixaban 5 MG TABLET PO SCH ×2 (08:12→19:53)
--- NOTE | 2018-09-12 08:23 | Internal Med Progress Note ---
Hospitalist Progress Note - Encounter Date of Encounter: 09/12/18 Time of Encounter: 08:21 - Subjective Interval History: Patient seen and examined this morning. No acute overnight events. Denies new complains. Breathing better. Had 3.5 negative fluid balance yesterday. Did have her meals yesterday. Denies any headache. c/o shoulder pains. Feeling anxious. - Exam Vitals: Temp Pulse Resp BP Pulse Ox 98.4 F 76 14 109/79 97 09/12/18 04:24 09/12/18 06:02 09/12/18 06:02 09/12/18 06:02 09/12/18 06:02 Exam: Constitutional: Vitals as noted. Conversant. No Apparent Distress. Obese Respiratory : Clear to auscultation bilaterally. No accessory muscle use, rales, rhonchi or wheezes Cardiovascular : RRR, +S1, +S2. no murmur, gallop, rubs. No chest wall tenderness GI/Abdominal : Soft, Non-tender, Non-distended, normal bowel sounds, soft, no peritoneal signs. no orgenomegaly or mass appreciated. has xie in place Musculoskeletal: no deformity noted. no edema or cyanosis. warm extremities, p ulses palpable and symmetrical in UE/LE. no calf tenderness. Neurological: AO X3, CN II-XII grossly intact, grossly normal motor and sensory exam. Skin: No skin rash, lesions or ulcers noted. Pych: anxious. - Assessment and Plan (1) Acute urinary retention Current Visit: Yes Status: Acute (2) Anemia Current Visit: Yes Status: Acute (3) Elevated TSH Current Visit: Yes Status: Acute (4) Hypokalemia Current Visit: Yes Status: Acute (5) Hyponatremia Current Visit: Yes Status: Acute (6) History of pulmonary embolism Current Visit: No Status: Acute (7) Hypertension Current Visit: Yes Status: Acute - Summary of Assessment and Plan Summary of Assessment and Plan: Hyponatremia - Not hypervolemic. - AOx3, no AMS and no signs of seizure. Likely chronic - Urine Na 138.5 and Urine osm 390 on presentation. - Likely multifactorial. Hypothyroidism vs SIADH vs electrolyte wasting. random am cortisol normal. - Somewhat overcorrection with Na of 122 today. Keep NPO. Likely because of post-obtructive diuresis, with some contribution of solute from her diet and electrolytes with fluids. - Keep NPO for now. c/w q4hr BMP. Nephrology to give dose of desmopressin. c/w D5 at 125 cc. Discussed with nephrology. Weakness - likely secondary to Hyponatremia vs hypothyroidism - CXR, troponin, EKG and D-Dimer WNL - Improving. Acute urinary retention - Bedside bladder US with >1000cc - Post-void volume remained same with no UOP - s/p xie with > 1000cc UOP - Clamped after 1L to prevent post-obstructive diuresis - h/o Cervical Ca in past. CT Abd/Pelvis with uterine lesion, diverticulosis. Pelvis ultrasound with small uterine fibroid. - Possibly from anticholinergic effects from pyschotropic medication vs obstructive casue. - Urology recommendation appreciated. c/w xie for now. Anemia - appears chronic - stable. no signs of bleeding - Monitor for now Elevated TSH - compliant but misses few doses - c/w levothyroxin. - Will consider increasing dosage after. h/o PE - c/w apixaban once confirmed. Anxiety - c/w ativan 0.5 q8h prn. Hypokalemia, Hypomagnesemia, hypocalcemia - Will replete as needed - f/u BMP - Possible electrolyte wasting - f/u Vitamin D and PTH DVT prophylaxis - on apixaban - Time Spent with Patient Total time spent is greater than 50% in coordination of care (as documented) at patient's floor/unit and/or counseling patient: Internal Medicine: Result - Labs CBC & Chem 7: 09/11/18 00:17 09/12/18 04:14 Labs: BMP 09/11/18 09/11/18 09/11/18 08:51 11:35 16:07 Sodium 115 L* 120 L* 120 L* Potassium 3.0 L 3.2 L Chloride 85 L 87 L Carbon Dioxide 24 24 BUN 5 L 5 L Creatinine 0.47 L 0.54 L Glucose 93 90 Calcium 8.8 8.5 L 09/11/18 09/12/18 09/12/18 19:49 00:29 04:14 Sodium 121 L 120 L* 122 L Potassium Chloride Carbon Dioxide BUN Creatinine Glucose Calcium 09/12/18 04:14 Sodium 122 L Potassium 3.3 L Chloride 90 L Carbon Dioxide 24 BUN 7 L Creatinine 0.52 L Glucose 123 H Calcium 8.5 L - ABG Interpretation ABG results: PT/INR, D-dimer PT 14.0 Seconds (9.4-12.1) H 09/10/18 19:20 D-Dimer 446 ng/mLFEU (0-500) 09/10/18 19:20 - Impressions Impressions Pelvis Ultrasound 09/11/18 04:51 IMPRESSION: 1. Small uterine fibroid. 2. Normal endometrial thickness. 3. Nonvisualization of the ovaries. D/ / Mauricio Schofield MD / Mauricio Schofield MD Interpreting Provider: Mauricio Schofield MD Consult Discharge Plan - Plan Referrals: Denzel Crawford DO [Non-Partnered Physician] - 09/24/18 3:30 pm (2) Anemia Qualifiers: Anemia type: unspecified type Qualified Code(s): D64.9 - Anemia, unspecified (7) Hypertension Qualifiers: Hypertension type: essential hypertension Qualified Code(s): I10 - Essential (primary) hypertension
--- NOTE | 2018-09-12 08:57 | Nephrology Progress Note ---
Date of Encounter: 09/12/18 Time of Encounter: 09:15 - Assessment and Plan (1) Hyponatremia Current Visit: Yes Status: Acute Multifactorial, multi-electrolyte deficiencies with hyponatremia. Now that the xie has relieved her acute urinary obstruction her PNa is correcting quickly despite the escalating rates of hypotonic IVF (D5W) to slow down the rate of correction. She remains asymptomatic, but to lower the risks for CPM, I recommend DDAVP as discussed with the Hospitalist team. I would have give 4mcg DDAVP by IV, but it appears this is no longer on the formulary, so I've ordered a one time oral dose. Will need to continue to closely monitor the PNa q4hr. Though she is asymptomtic, she remains at high risk and has required a higher level of MDM and E/M. I contributed to her care both during rounds and earlier this day on phone calls and pages over the night. Thank you. (2) Acute urinary retention Current Visit: Yes Status: Acute (3) Anemia Current Visit: Yes Status: Acute Qualifiers: Anemia type: unspecified type Qualified Code(s): D64.9 - Anemia, unspecified (4) Elevated TSH Current Visit: Yes Status: Acute (5) Hypertension Current Visit: Yes Status: Acute Qualifiers: Hypertension type: essential hypertension Qualified Code(s): I10 - Ess ential (primary) hypertension (6) Hypokalemia Current Visit: Yes Status: Acute Subjective Principal diagnosis: Hyponatremia Interval history: Pt was s/e in the ICU. She reported feeling fine without tremor or N/V/D or confusion or headaches. She voiced feeling relatively well but did affirm some fatigue. Objective - Vital Signs Vital signs: Vital Signs Temp Pulse Resp BP Pulse Ox 09/12/18 08:29 97.4 F L 09/12/18 06:02 76 14 109/79 97 09/12/18 04:24 98.4 F 09/12/18 04:00 80 16 107/79 97 09/12/18 03:00 84 09/12/18 02:07 77 16 107/71 97 09/12/18 01:00 75 17 97 09/12/18 00:04 79 14 106/76 96 09/11/18 23:00 81 16 96 09/11/18 22:33 98.6 F 09/11/18 22:08 80 16 98/60 96 09/11/18 21:04 84 18 114/73 96 09/11/18 20:01 94 16 09/11/18 19:08 99 16 110/72 98 09/11/18 19:01 98.7 F 09/11/18 18:00 105 12 110/72 09/11/18 16:03 98.8 F 09/11/18 16:00 93 09/11/18 15:00 99 15 119/87 98 09/11/18 13:19 106 105/71 97 09/11/18 12:27 98.3 F 09/11/18 12:00 103 09/11/18 11:11 86 103/64 95 09/11/18 09:13 98.1 F 09/11/18 09:00 92 12 112/73 94 Intake and Output 09/11/18 09/12/18 09/12/18 23:59 07:59 15:59 Intake Total 870 / 870 100 / 100 100 / 100 Output Total 1850 / 1850 125 / 125 525 / 525 Balance -980 / -980 -25 / -25 -425 / -425 Intake: IV Fluids 810 / 810 100 / 100 100 / 100 Dextrose 5% 1,000 ML @ 50 mls/ 700 / 700 hr IVC .Q20H SHIRA Rx#:[id number] Calcium Gluconate 1,000 MG In 0 110 / 110 .9 % Sodium Chloride 100 ML @ 220 mls/hr IVPB Q6HR PRN Rx#: [id number] Potassium Chloride 10 mEq/100mL 100 / 100 100 / 100 10 meq In 100 ml @ 100 mls/hr IVPB Q1H PRN Rx#:[id number] Oral 60 / 60 Output: Catheter 1850 / 1850 125 / 125 525 / 525 Other: Percent of Meal Consumed 50% Weight 99.3 kg Patient Weight 09/12/18 23:59 Weight 99.3 kg - General Appearance Exam: Gen.: Vitals noted. No acute distress. AAOx3, resting comfortably in bed as seen in the ICU HEENT: PERRL/EOMI, Normocephalic, atraumatic, MMM Cardiac: RRR, no murmur, +S1/S2, No BLE edema Pulmonary: CTA bilaterally, no wheezes, rales or rhonchi, equal chest expansion, unlabored breathing Abdomen: soft, nontender, BS noted, no guarding, : Xie catheter in place with very light yellow urine Skin: warm and dry, no visible lesions. MSK: ROM not assessed, no joint swelling noted, gait no assessed while in bed. Non tender calf or clubbing Neuro: A&Ox3, moves all extremities, no focal deficits, sensation intact Psych: Appropriate mood and behavior, AOx3 - Lab 09/11/18 00:17 09/15/18 04:00 Most recent lab results Calcium 8.5 mg/dL (8.6-10.3) L 09/12/18 04:14 Phosphorus 2.6 mg/dL (2.7-4.5) L 09/11/18 11:35 Magnesium 2.3 mg/dL (1.6-2.6) 09/11/18 11:35 Urine Sodium 138.5 mEq/L 09/10/18 20:32 Consult Discharge Plan - Plan Referrals: Denzel Crawford DO [Non-Partnered Physician] - 09/24/18 3:30 pm
[2018-09-12 10:26] LABS: Alanine Aminotransferase 10 Units/L (7-52); Albumin 3.3 g/dL (3.5-5.7); Albumin/Globulin Ratio 1.3 (1.1-2.2); Alkaline Phosphatase 98 Units/L (34-104); Aspartate Amino Transferase 20 Units/L (13-39); Bilirubin,Direct 0.1 mg/dL (0.0-0.2); Bilirubin,Indirect 0.2 mg/dL (0.0-1.2); Bilirubin,Total 0.3 mg/dL (0.3-1.0); Globulin 2.6 g/dL (2.4-3.5); Total Protein 5.9 g/dL (6.4-8.9)
[2018-09-12 10:36] LABS: BUN/Creatinine Ratio 10 (6-26); Blood Urea Nitrogen 6 mg/dL (8-23); Calcium 8.3 mg/dL (8.6-10.3); Carbon Dioxide 26 mEq/L (23-29); Chloride 91 mEq/L (98-107); Glucose 115 mg/dL (70-105); Osmolality,Calculated 253 (280-300); Potassium 3.8 mEq/L (3.5-5.1); Sodium 122 mEq/L (136-145); eGFR For Non-African Americans > 60 (> 60)
[2018-09-12] MEDS: *HR* LORazepam 0.5 MG TABLET PO PRN ×2 (10:43→19:02)
[2018-09-12] MEDS: D5% in Water 1,000 ML IVC SCH ×2 (10:44→19:08)
[2018-09-12 11:37] LABS: BUN/Creatinine Ratio 12 (6-26); Blood Urea Nitrogen 7 mg/dL (8-23); Calcium 8.4 mg/dL (8.6-10.3); Carbon Dioxide 26 mEq/L (23-29); Chloride 91 mEq/L (98-107); Glucose 105 mg/dL (70-105); Osmolality,Calculated 250 (280-300); Potassium 3.8 mEq/L (3.5-5.1); Sodium 121 mEq/L (136-145); eGFR For Non-African Americans > 60 (> 60)
[2018-09-12 17:13] LABS: BUN/Creatinine Ratio 13 (6-26); Blood Urea Nitrogen 7 mg/dL (8-23); Calcium 8.4 mg/dL (8.6-10.3); Carbon Dioxide 26 mEq/L (23-29); Chloride 90 mEq/L (98-107); Glucose 109 mg/dL (70-105); Osmolality,Calculated 249 (280-300); Potassium 4.3 mEq/L (3.5-5.1); Sodium 120 mEq/L (136-145); eGFR For Non-African Americans > 60 (> 60)
[2018-09-12 20:39] LABS: BUN/Creatinine Ratio 14 (6-26); Blood Urea Nitrogen 7 mg/dL (8-23); Carbon Dioxide 25 mEq/L (23-29); Chloride 89 mEq/L (98-107); Glucose 95 mg/dL (70-105); Osmolality,Calculated 244 (280-300); Potassium 3.5 mEq/L (3.5-5.1); Sodium 118 mEq/L (136-145); eGFR For Non-African Americans > 60 (> 60)
[2018-09-12] MEDS ORDERED: D5% in Water 1,000 ML IVC SCH ×2 (20:51→20:54)
[2018-09-13 01:36] LABS: BUN/Creatinine Ratio 12 (6-26); Blood Urea Nitrogen 6 mg/dL (8-23); Calcium 8.2 mg/dL (8.6-10.3); Carbon Dioxide 23 mEq/L (23-29); Chloride 89 mEq/L (98-107); Glucose 108 mg/dL (70-105); Osmolality,Calculated 244 (280-300); Potassium 3.6 mEq/L (3.5-5.1); Sodium 118 mEq/L (136-145); eGFR For Non-African Americans > 60 (> 60)
[2018-09-13 06:13] LABS: BUN/Creatinine Ratio 10 (6-26); Blood Urea Nitrogen 5 mg/dL (8-23); Calcium 8.3 mg/dL (8.6-10.3); Carbon Dioxide 24 mEq/L (23-29); Chloride 90 mEq/L (98-107); Glucose 104 mg/dL (70-105); Osmolality,Calculated 246 (280-300); Potassium 3.5 mEq/L (3.5-5.1); Sodium 119 mEq/L (136-145); eGFR For Non-African Americans > 60 (> 60)
[2018-09-13] MEDS: Topiramate 25 MG TABLET PO SCH ×2 (07:59→20:02)
[2018-09-13] MEDS: Apixaban 5 MG TABLET PO SCH ×2 (08:00→20:03)
[2018-09-13] MEDS: *HR* LORazepam 0.5 MG TABLET PO PRN ×2 (08:18→20:02)
--- NOTE | 2018-09-13 09:38 | Nephrology Progress Note ---
Date of Encounter: 09/13/18 Time of Encounter: 09:37 - Assessment and Plan (1) Hyponatremia Current Visit: Yes Status: Acute Okay to liberate diet, and allow another 6-8 mEq correction today. She remains entirely asymptomatic. No need for 3% saline. Though she is asymptomatic, she must still have a slow rate of correction to help minimize her risk for CPM. So she remains at a high risk and required a higher level of E/M and MDM. My colleague Dr. Machado will be on-service tomorrow AM. Thank you. (2) Acute urinary retention Current Visit: Yes Status: Acute Xie in place. Of note it was the opening up of her urinary retention that has contributed to her high UOP and rapid correction of the hyponatremia. Nevertheless, I recommend keeping the xie in place, just as Urology recommended. (3) Anemia Current Visit: Yes Status: Acute Will monitor. Qualifiers: Anemia type: unspecified type Qualified Code(s): D64.9 - Anemia, unspecified (4) Elevated TSH Current Visit: Yes Status: Acute Will defer to the primary team. Sometimes hypothyroidism contributes, but this may just be a euthyroid sick condition. (5) Hypertension Current Visit: Yes Status: Acute Qualifiers: Hypertension type: essential hypertension Qualified Code(s): I10 - Essential (primary) hypertension (6) Hypokalemia Current Visit: Yes Status: Acute Subjective Principal diagnosis: Hyponatremia Interval history: Pt was s/e. She did not affirm N/V/D and said that has not feelings of F/C but with the xie in place, sometimes she feels urgency. She denied tremor or seizure or headache or other major complaints. Objective - Vital Signs Vital signs: Vital Signs Temp Pulse Resp BP Pulse Ox 09/13/18 08:00 75 18 113/75 96 09/13/18 07:47 98.0 F 09/13/18 07:00 75 09/13/18 06:00 71 18 106/63 96 09/13/18 04:04 71 16 127/89 96 09/13/18 03:00 71 09/13/18 02:49 98.3 F 09/13/18 02:01 71 15 105/59 96 09/13/18 00:00 81 17 109/67 96 09/12/18 23:46 98.5 F 09/12/18 23:00 82 09/12/18 22:14 72 15 109/75 94 09/12/18 20:02 71 16 101/68 97 09/12/18 19:02 71 09/12/18 18:35 98.5 F 09/12/18 18:00 70 14 91/62 96 09/12/18 16:27 98.2 F 09/12/18 16:00 76 14 108/81 96 09/12/18 14:00 69 14 110/66 96 09/12/18 12:15 98.6 F 09/12/18 12:00 81 14 102/74 95 09/12/18 10:00 81 14 102/71 95 Intake and Output 09/12/18 09/13/18 09/13/18 23:59 07:59 15:59 Intake Total 1300 / 1300 100 / 100 Output Total 450 / 450 725 / 725 Balance 850 / 850 -625 / -625 Intake: IV Fluids 1200 / 1200 100 / 100 Dextrose 5% 1,000 ML @ 125 mls/ 1200 / 1200 hr IVC .Q8H SHIRA Rx#:[id number] Potassium Chloride 10 mEq/100mL 100 / 100 10 meq In 100 ml @ 100 mls/hr IVPB Q1H PRN Rx#:[id number] Oral 100 / 100 Output: Catheter 450 / 450 725 / 725 Other: Weight 98.7 kg Patient Weight 09/13/18 23:59 Weight 98.7 kg - General Appearance Exam: Gen.: No acute distress. AAOx3, resting comfortably in bed as seen in the ICU HEENT: PERRL/EOMI, Normocephalic, atraumatic, MMM Cardiac: RRR, no murmur, +S1/S2, No BLE edema Pulmonary: CTA bilaterally, no wheezes, rales or rhonchi, equal chest expansion, unlabored breathing Abdomen: soft, nontender, BS noted, no guarding, : Xie catheter in place with very light yellow urine Skin: warm and dry, no visible lesions. MSK: ROM not assessed, gait no assessed while in bed. Neuro: A&Ox3, moves all extremities, no focal deficits, sensation intact Psych: Appropriate mood and behavior, AOx3 - Lab 09/11/18 00:17 09/15/18 04:00 Most recent lab results Calcium 8.3 mg/dL (8.6-10.3) L 09/13/18 05:14 Phosphorus 2.6 mg/dL (2.7-4.5) L 09/11/18 11:35 Magnesium 2.3 mg/dL (1.6-2.6) 09/11/18 11:35 Urine Sodium 138.5 mEq/L 09/10/18 20:32 Consult Discharge Plan - Plan Referrals: Denzel Crawford DO [Non-Partnered Physician] - 09/24/18 3:30 pm
[2018-09-13 10:03] LABS: BUN/Creatinine Ratio 11 (6-26); Blood Urea Nitrogen 5 mg/dL (8-23); Calcium 8.5 mg/dL (8.6-10.3); Carbon Dioxide 23 mEq/L (23-29); Chloride 91 mEq/L (98-107); Glucose 102 mg/dL (70-105); Osmolality,Calculated 245 (280-300); Potassium 4.1 mEq/L (3.5-5.1); Sodium 119 mEq/L (136-145); eGFR For Non-African Americans > 60 (> 60)
--- NOTE | 2018-09-13 11:33 | Internal Med Progress Note ---
Hospitalist Progress Note - Encounter Date of Encounter: 09/13/18 Time of Encounter: 11:31 - Subjective Interval History: Patient seen and examined this morning. No acute overnight events. Denies any complains. Feels hungry and wants to. Denies any headache, tingling numbness or weakness. - Exam Vitals: Temp Pulse Resp BP Pulse Ox 98.0 F 75 16 114/64 95 09/13/18 07:47 09/13/18 10:00 09/13/18 10:00 09/13/18 10:00 09/13/18 10:00 Exam: Constitutional: Vitals as noted. Conversant. No Apparent Distress. Obese Respiratory : Clear to auscultation bilaterally. No accessory muscle use, rales, rhonchi or wheezes Cardiovascular : RRR, +S1, +S2. no murmur, gallop, rubs. No chest wall tenderness GI/Abdominal : Soft, Non-tender, Non-distended, normal bowel sounds, soft, no peritoneal signs. no orgenomegaly or mass appreciated. has xie in place Musculoskeletal: no deformity noted. no edema or cyanosis. warm extremities, pulses palpable and symmetrical in UE/LE. no calf tenderness. Neurological: AO X3, CN II-XII grossly intact, grossly normal motor and sensory exam. Skin: No skin rash, lesions or ulcers noted. Pych: anxious. - Assessment and Plan (1) Acute urinary retention Current Visit: Yes Status: Acute (2) Anemia Current Visit: Yes Status: Acute (3) Elevated TSH Current Visit: Yes Status: Acute (4) Hypokalemia Current Visit: Yes Status: Acute (5) Hyponatremia Current Visit: Yes Status: Acute (6) History of pulmonary embolism Current Visit: No Status: Acute (7) Hypertension Current Visit: Yes Status: Acute - Summary of Assessment and Plan Summary of Assessment and Plan: Severe Hyponatremia - AOx3, no AMS and no signs of seizure. Likely chronic - Urine Na 138.5 and Urine osm 390 on presentation. - Likely multifactorial. Hypothyroidism vs SIADH vs electrolyte wasting. random am cortisol normal. - c/w q4hr BMP. s/p desmopressin yesterday. Fluids stopped. Started on diet. Will allow 6-8 Na increase today. - Nephrology following. Weakness - likely secondary to Hyponatremia vs hypothyroidism - CXR, troponin, EKG and D-Dimer WNL - Improved. Acute urinary retention - Bedside bladder US with >1000cc - Post-void volume remained same with no UOP - s/p xie with > 1000cc UOP - Had some post-obstructive diuresis after xie was placed - h/o Cervical Ca in past. CT Abd/Pelvis with uterine lesion, diverticulosis. Pelvis ultrasound with small uterine fibroid. - Possibly from anticholinergic effects from pyschotropic medication vs obstructive casue. - Urology recommendation appreciated. c/w xie for now. Anemia - appears chronic - stable. no signs of bleeding - Monitor for now Elevated TSH - compliant but misses few doses - c/w levothyroxin. - Will consider increasing dosage after. h/o PE - c/w apixaban once confirmed. Anxiety - c/w ativan 1 q12h prn. Hypokalemia, Hypomagnesemia, hypocalcemia - Will replete as needed - f/u BMP q4rh. - Possible electrolyte wasting - PTH normal - Patient with low albumin. DVT prophylaxis - on apixaban Internal Medicine: Result - Labs CBC & Chem 7: 09/11/18 00:17 09/13/18 09:26 Labs: BMP 09/12/18 09/12/18 09/12/18 10:46 16:28 19:54 Sodium 121 L 120 L* 118 L* Potassium 3.8 4.3 3.5 Chloride 91 L 90 L 89 L Carbon Dioxide 26 26 25 BUN 7 L 7 L 7 L Creatinine 0.60 0.56 L 0.49 L Glucose 105 109 H 95 Calcium 8.4 L 8.4 L 8.0 L 09/13/18 09/13/18 09/13/18 00:59 05:14 09:26 Sodium 118 L* 119 L* 119 L* Potassium 3.6 3.5 4.1 Chloride 89 L 90 L 91 L Carbon Dioxide 23 24 23 BUN 6 L 5 L 5 L Creatinine 0.49 L 0.49 L 0.46 L Glucose 108 H 104 102 Calcium 8.2 L 8.3 L 8.5 L - ABG Interpretation ABG results: PT/INR, D-dimer PT 14.0 Seconds (9.4-12.1) H 09/10/18 19:20 D-Dimer 446 ng/mLFEU (0-500) 09/10/18 19:20 Consult Discharge Plan - Plan Referrals: Denzel Crawford DO [Non-Partnered Physician] - 09/24/18 3:30 pm (2) Anemia Qualifiers: Anemia type: unspecified type Qualified Code(s): D64.9 - Anemia, unspecified (7) Hypertension Qualifiers: Hypertension type: essential hypertension Qualified Code(s): I10 - Essential (primary) hypertension
[2018-09-13 14:30] LABS: BUN/Creatinine Ratio 11 (6-26); Blood Urea Nitrogen 6 mg/dL (8-23); Calcium 8.7 mg/dL (8.6-10.3); Carbon Dioxide 23 mEq/L (23-29); Chloride 92 mEq/L (98-107); Glucose 110 mg/dL (70-105); Osmolality,Calculated 248 (280-300); Potassium 4.2 mEq/L (3.5-5.1); Sodium 120 mEq/L (136-145); eGFR For Non-African Americans > 60 (> 60)
[2018-09-13 17:18] LABS: BUN/Creatinine Ratio 12 (6-26); Blood Urea Nitrogen 7 mg/dL (8-23); Calcium 8.5 mg/dL (8.6-10.3); Carbon Dioxide 25 mEq/L (23-29); Chloride 94 mEq/L (98-107); Glucose 99 mg/dL (70-105); Osmolality,Calculated 256 (280-300); Sodium 124 mEq/L (136-145); eGFR For Non-African Americans > 60 (> 60)
[2018-09-13] MEDS ORDERED: D5% in Water 500 ML IVC SCH ×2 (17:45→18:30)
[2018-09-13 22:01] LABS: BUN/Creatinine Ratio 15 (6-26); Blood Urea Nitrogen 10 mg/dL (8-23); Calcium 8.4 mg/dL (8.6-10.3); Carbon Dioxide 22 mEq/L (23-29); Chloride 95 mEq/L (98-107); Glucose 101 mg/dL (70-105); Osmolality,Calculated 257 (280-300); Potassium 3.7 mEq/L (3.5-5.1); Sodium 124 mEq/L (136-145); eGFR For Non-African Americans > 60 (> 60)
[2018-09-14 06:48] LABS: BUN/Creatinine Ratio 17 (6-26); Blood Urea Nitrogen 9 mg/dL (8-23); Calcium 8.8 mg/dL (8.6-10.3); Carbon Dioxide 25 mEq/L (23-29); Chloride 94 mEq/L (98-107); Glucose 103 mg/dL (70-105); Osmolality,Calculated 257 (280-300); Potassium 3.7 mEq/L (3.5-5.1); Sodium 124 mEq/L (136-145); eGFR For Non-African Americans > 60 (> 60)
--- NOTE | 2018-09-14 07:55 | Internal Med Progress Note ---
Hospitalist Progress Note - Encounter Date of Encounter: 09/14/18 Time of Encounter: 07:52 - Subjective Interval History: Patient seen and examined this morning. No acute overnight events. Denies any headache, tingling numbness or weakness. Now complains that she had blurry vision for 3 days before she was admitted. Currently she has difficulty reading with her glasses. - Exam Vitals: Temp Pulse Resp BP Pulse Ox 97.9 F 68 20 104/78 99 09/14/18 07:41 09/14/18 07:27 09/14/18 06:00 09/14/18 06:00 09/14/18 06:00 Exam: Constitutional: Vitals as noted. Conversant. No Apparent Distress. Obese Respiratory : Clear to auscultation bilaterally. No accessory muscle use, rales, rhonchi or wheezes Cardiovascular : RRR, +S1, +S2. no murmur, gallop, rubs. No chest wall tenderness GI/Abdominal : Soft, Non-tender, Non-distended, normal bowel sounds, soft, no peritoneal signs. no orgenomegaly or mass appreciated. has xie in place Musculoskeletal: no deformity noted. no edema or cyanosis. warm extremities, pulses palpable and symmetrical in UE/LE. no calf tenderness. Lt shoulder decreased range due to pain. Neurological: AO X3, CN II-XII grossly intact, grossly normal motor and sensory exam. Has difficulty reading with her glasses Skin: No skin rash, lesions or ulcers noted. - Assessment and Plan (1) Acute urinary retention Current Visit: Yes Status: Acute (2) Anemia Current Visit: Yes Status: Acute (3) Elevated TSH Current Visit: Yes Status: Acute (4) Hypokalemia Current Visit: Yes Status: Acute (5) Hyponatremia Current Visit: Yes Status: Acute (6) History of pulmonary embolism Current Visit: No Status: Acute (7) Hypertension Current Visit: Yes Status: Acute - Summary of Assessment and Plan Summary of Assessment and Plan: Severe Hyponatremia - AOx3, no AMS and no signs of seizure. Likely chronic - Urine Na 138.5 and Urine osm 390 on presentation. - Likely multifactorial. possibly SIADH. Hypothyroidism less likely. random am cortisol normal. - c/w q8hr BMP. s/p desmopressin. Started on diet. - Sodium 124 this morning. will stop hypotonic fluids - Can be transferred out of ICU. - c/o blurry vision since 2-3 days before. appears less likely from Hyponatremia, however will get CT given had some rapid correction initially. - Nephrology following. Weakness - likely secondary to Hyponatremia vs hypothyroidism - CXR, troponin, EKG and D-Dimer WNL - Improved. Acute urinary retention - Bedside bladder US with >1000cc - Post-void volume remained same with no UOP - s/p xie with > 1000cc UOP - Had some post-obstructive diuresis after xie was placed - h/o Cervical Ca in past. CT Abd/Pelvis with uterine lesion, diverticulosis. Pelvis ultrasound with small uterine fibroid. - Possibly from anticholinergic effects from pyschotropic medication vs obstructive casue. - Urology recommendation appreciated. c/w xie for now. Anemia - appears chronic - stable. no signs of bleeding - Monitor for now Elevated TSH - compliant but misses few doses - c/w levothyroxin. - Will consider increasing dosage after. h/o PE - c/w apixaban Anxiety - c/w ativan 1 q12h prn. Hypokalemia, Hypomagnesemia, hypocalcemia - Will replete as needed - f/u BMP q8hr. - Possible electrolyte wasting - PTH normal - Patient with low albumin. - stable now DVT prophylaxis - on apixaban - Time Spent with Patient Total time spent is greater than 50% in coordination of care (as documented) at patient's floor/unit and/or counseling patient: Internal Medicine: Result - Labs CBC & Chem 7: 09/11/18 00:17 09/14/18 06:16 Labs: BMP 09/13/18 09/13/18 09/13/18 09:26 13:47 16:47 Sodium 119 L* 120 L* 124 L Potassium 4.1 4.2 4.0 Chloride 91 L 92 L 94 L Carbon Dioxide 23 23 25 BUN 5 L 6 L 7 L Creatinine 0.46 L 0.55 L 0.59 L Glucose 102 110 H 99 Calcium 8.5 L 8.7 8.5 L 09/13/18 09/14/18 20:56 06:16 Sodium 124 L 124 L Potassium 3.7 3.7 Chloride 95 L 94 L Carbon Dioxide 22 L 25 BUN 10 9 Creatinine 0.65 0.54 L Glucose 101 103 Calcium 8.4 L 8.8 - ABG Interpretation ABG results: PT/INR, D-dimer PT 14.0 Seconds (9.4-12.1) H 09/10/18 19:20 D-Dimer 446 ng/mLFEU (0-500) 09/10/18 19:20 Consult Discharge Plan - Plan Referrals: Denzel Crawford DO [Non-Partnered Physician] - 09/24/18 3:30 pm (2) Anemia Qualifiers: Anemia type: unspecified type Qualified Code(s): D64.9 - Anemia, unspecified (7) Hypertension Qualifiers: Hypertension type: essential hypertension Qualified Code(s): I10 - Essential (primary) hypertension
[2018-09-14] MEDS: Apixaban 5 MG TABLET PO SCH ×2 (08:34→21:07)
[2018-09-14] MEDS: Topiramate 25 MG TABLET PO SCH ×2 (08:34→21:08)
[2018-09-14] MEDS: *HR* LORazepam 0.5 MG TABLET PO PRN ×2 (08:36→21:07)
[2018-09-14 10:49] LABS: BUN/Creatinine Ratio 17 (6-26); Blood Urea Nitrogen 9 mg/dL (8-23); Calcium 8.6 mg/dL (8.6-10.3); Carbon Dioxide 24 mEq/L (23-29); Chloride 95 mEq/L (98-107); Glucose 93 mg/dL (70-105); Osmolality,Calculated 262 (280-300); Potassium 3.6 mEq/L (3.5-5.1); Sodium 127 mEq/L (136-145); eGFR For Non-African Americans > 60 (> 60)
[2018-09-14 15:26] LABS: BUN/Creatinine Ratio 18 (6-26); Blood Urea Nitrogen 10 mg/dL (8-23); Calcium 8.8 mg/dL (8.6-10.3); Carbon Dioxide 22 mEq/L (23-29); Chloride 95 mEq/L (98-107); Glucose 105 mg/dL (70-105); Osmolality,Calculated 257 (280-300); Potassium 3.7 mEq/L (3.5-5.1); Sodium 124 mEq/L (136-145); eGFR For Non-African Americans > 60 (> 60)
[2018-09-14] MEDS: Acetaminophen 325 MG TABLET PO PRN (16:32)
[2018-09-14 20:28] LABS: BUN/Creatinine Ratio 18 (6-26); Blood Urea Nitrogen 11 mg/dL (8-23); Calcium 8.7 mg/dL (8.6-10.3); Carbon Dioxide 24 mEq/L (23-29); Chloride 97 mEq/L (98-107); Glucose 100 mg/dL (70-105); Osmolality,Calculated 263 (280-300); Potassium 3.7 mEq/L (3.5-5.1); Sodium 127 mEq/L (136-145); eGFR For Non-African Americans > 60 (> 60)
[2018-09-15] MEDS: Acetaminophen 325 MG TABLET PO PRN (05:56)
[2018-09-15 06:28] LABS: BUN/Creatinine Ratio 22 (6-26); Blood Urea Nitrogen 13 mg/dL (8-23); Calcium 8.8 mg/dL (8.6-10.3); Carbon Dioxide 22 mEq/L (23-29); Chloride 98 mEq/L (98-107); Glucose 102 mg/dL (70-105); Osmolality,Calculated 266 (280-300); Potassium 3.8 mEq/L (3.5-5.1); Sodium 128 mEq/L (136-145); eGFR For Non-African Americans > 60 (> 60)
[2018-09-15] MEDS: Topiramate 25 MG TABLET PO SCH ×2 (08:18→21:09)
[2018-09-15] MEDS: Apixaban 5 MG TABLET PO SCH ×2 (08:18→21:09)
--- NOTE | 2018-09-15 08:33 | Urology Progress Note ---
Date of Encounter: 09/15/18 Time of Encounter: 08:10 - Assessment and Plan (1) Acute urinary retention Current Visit: Yes Status: Acute Assessment and plan: Patient is a 60-year-old female who presents with acute urinary retention. Discussed Weaver catheter removal during hospital stay, the patient declines this. Patient feels very anxious about her urinary habits. Patient feels as though she will be up and down too frequently to urinate, and she wishes to keep Weaver catheter for now. I discussed outpatient voiding trial in our office as well as a continued workup for chronic urinary hesitancy that she is experienced. I discussed risk of infection with indwelling Weaver catheter, and patient verbalized understanding. Patient may undergo catheter care instructions by nurse and go home with both bedside bag and leg bag instructions. Patient will follow-up in the outpatient urology clinic with Dr. Guaman within 1 week of discharge for voiding trial. Progress Note Subjective: no new complaints, feels better Narrative: Patient seen and examined lying in bed in no apparent distress. Weaver catheter is indwelling and draining clear urine into bedside bag. Patient is tolerating normal diet without nausea or vomiting. Patient denies catheter discomfort or feeling of obstruction. Patient denies fever, chills, flank pain, gross hematuria. Objective Initial Vital Signs Temp Pulse Resp BP Pulse Ox 99.0 F 98 18 137/91 99 09/10/18 18:18 09/10/18 18:18 09/10/18 18:18 09/10/18 18:18 09/10/18 18:18 - General physical appearance Present: well developed, no distress, no pain - Respiratory Present: normal expansion, normal respiratory effort - Abdomen Present: soft, non tender - Genitourinary Urine Appearance: Present: Clear - Integumentary Present: no rash, no abnormal pigmentation - Musculoskeletal Present: normal posture - Psychiatric Present: oriented to time, oriented to person, oriented to place, speech is normal, memory intact - Labs 09/11/18 00:17 09/15/18 04:00 Diabetes panel 09/14/18 09/14/18 09/14/18 Range/Units 10:07 14:37 19:47 Sodium 127 L 124 L 127 L (136-145) mEq/L Potassium 3.6 3.7 3.7 (3.5-5.1) mEq/L Chloride 95 L 95 L 97 L (98-107) mEq/L Carbon Dioxide 24 22 L 24 (23-29) mEq/L BUN 9 10 11 (8-23) mg/dL Creatinine 0.54 L 0.55 L 0.62 (0.60-1.20) mg/dL Glucose 93 105 100 (70-105) mg/dL Calcium 8.6 8.8 8.7 (8.6-10.3) mg/dL 09/15/18 Range/Units 04:00 Sodium 128 L (136-145) mEq/L Potassium 3.8 (3.5-5.1) mEq/L Chloride 98 (98-107) mEq/L Carbon Dioxide 22 L (23-29) mEq/L BUN 13 (8-23) mg/dL Creatinine 0.58 L (0.60-1.20) mg/dL Glucose 102 (70-105) mg/dL Calcium 8.8 (8.6-10.3) mg/dL Calcium panel 09/12/18 09/14/18 09/14/18 Range/Units 10:46 10:07 14:37 Calcium 8.6 8.8 (8.6-10.3) mg/dL 25-OH Vitamin D Total 9 L (30-80) ng/mL 09/14/18 09/15/18 Range/Units 19:47 04:00 Calcium 8.7 8.8 (8.6-10.3) mg/dL 25-OH Vitamin D Total (30-80) ng/mL Pituitary panel 09/14/18 09/14/18 09/14/18 Range/Units 10:07 14:37 19:47 Sodium 127 L 124 L 127 L (136-145) mEq/L Potassium 3.6 3.7 3.7 (3.5-5.1) mEq/L Chloride 95 L 95 L 97 L (98-107) mEq/L Carbon Dioxide 24 22 L 24 (23-29) mEq/L BUN 9 10 11 (8-23) mg/dL Creatinine 0.54 L 0.55 L 0.62 (0.60-1.20) mg/dL Glucose 93 105 100 (70-105) mg/dL Calcium 8.6 8.8 8.7 (8.6-10.3) mg/dL 09/15/18 Range/Units 04:00 Sodium 128 L (136-145) mEq/L Potassium 3.8 (3.5-5.1) mEq/L Chloride 98 (98-107) mEq/L Carbon Dioxide 22 L (23-29) mEq/L BUN 13 (8-23) mg/dL Creatinine 0.58 L (0.60-1.20) mg/dL Glucose 102 (70-105) mg/dL Calcium 8.8 (8.6-10.3) mg/dL Adrenal panel 09/14/18 09/14/18 09/14/18 Range/Units 10:07 14:37 19:47 Sodium 127 L 124 L 127 L (136-145) mEq/L Potassium 3.6 3.7 3.7 (3.5-5.1) mEq/L Chloride 95 L 95 L 97 L (98-107) mEq/L Carbon Dioxide 24 22 L 24 (23-29) mEq/L BUN 9 10 11 (8-23) mg/dL Creatinine 0.54 L 0.55 L 0.62 (0.60-1.20) mg/dL Glucose 93 105 100 (70-105) mg/dL Calcium 8.6 8.8 8.7 (8.6-10.3) mg/dL 09/15/18 Range/Units 04:00 Sodium 128 L (136-145) mEq/L Potassium 3.8 (3.5-5.1) mEq/L Chloride 98 (98-107) mEq/L Carbon Dioxide 22 L (23-29) mEq/L BUN 13 (8-23) mg/dL Creatinine 0.58 L (0.60-1.20) mg/dL Glucose 102 (70-105) mg/dL Calcium 8.8 (8.6-10.3) mg/dL Consult Discharge Plan - Plan Referrals: Denzel Crawford DO [Non-Partnered Physician] - 09/24/18 3:30 pm
[2018-09-15] MEDS: *HR* LORazepam 0.5 MG TABLET PO PRN ×2 (09:13→21:17)
--- NOTE | 2018-09-15 09:28 | Discharge Summary ---
<Mak Brown - Last Filed: 09/16/18 11:48> Date of Encounter: 09/16/18 Time of Encounter: 09:26 - Discharge Diagnosis (1) Hyponatremia Priority: Primary Status: Acute Assessment and Plan: Hyponatremia improving. Most likely due to urinary retention which has been treated with cath. 130 today up from 128, 127 and 124. (2) Hypokalemia Priority: Primary Status: Resolved Assessment and Plan: Patient's hypokalemia resolved. Today is 3.8. (3) Hypertension Priority: Secondary Status: Chronic Assessment and Plan: Patient currently not hypertensive. Please follow up with primary care provider for outpatient management of blood pressure. Qualifiers: Hypertension type: essential hypertension Qualified Code(s): I10 - Essential (primary) hypertension (4) Elevated TSH Priority: Secondary Status: Resolved Assessment and Plan: Continue levothyroxine. (5) History of pulmonary embolism Priority: Secondary Status: Chronic Assessment and Plan: Continue Eloquis (6) Acute urinary retention Priority: Primary Status: Acute Assessment and Plan: Urology was consulted. They recommended patient remove Weaver cahther however she declined due to nary frequency. She will follow up with Dr. Guaman outpatient for workup of urinary symptoms within 1 week of discharge. Proper ca re for cather and risk of infection was discussed with patient. Nephrology has also been in to see patient today and they are okay to d/c her. Consider d/c today. Hospital course: Ms. Tellez is a 62 year old female presenting withi dypsnea and weakness with history of PE, COPD, HTN, cervical cancer, hyponatermia. At presentation her sodium was 109 and is now 128. She was also complaining of urinary symtpoms including fequency and hesitancy. She was catheterized and wants to be d/cordell with cath. She will follow up with urology for care of cath and eval of urinary symptoms. She also had hypokalemia which has resolved and is now 3.8 today. Spoke with patient and she is comfortable going home. Discharge discussed with: patient - Time Spent with Patient Total time spent providing and/or coordinating discharge services: - Discharge Medications Home Medications: RX: Docusate [Colace] 100 mg PO BID PRN 09/11/18 [History] SUMAtriptan succinate [Imitrex] 25 mg PO BID PRN 09/11/18 [History] RX: Acetaminophen [Tylenol] 325 mg PO Q6HR PRN tablet 09/15/18 [Rx] RX: Apixaban [Eliquis] 5 mg PO BID tablet 09/15/18 [Rx] RX: Carvedilol [Coreg] 12.5 mg PO BIDWM tablet 09/15/18 [Rx] RX: Levothyroxine [Synthroid] 50 mcg PO DAILY@0630 tablet 09/15/18 [Rx] RX: Topiramate [Topamax] 25 mg PO BID tablet 09/15/18 [Rx] RX: Venlafaxine [Effexor] 75 mg PO BID tablet 09/15/18 [Rx] Allergies/Adverse Reactions: Allergy/AdvReac Type Severity Reaction Status Date / Time No Known Allergies Allergy Verified 09/11/18 12:57 Date of admission: 09/10/18 22:39 Primary care physician: PCP NONE Consults: 09/10/18 21:56 Consult to Nephrology [CONS] Stat Consulting Provider: [facility] [place]/DARSHAN/LUCIO/MORELIA Reason for Consult: Electrolyte abnormalities Call Completed: No 09/11/18 00:33 Consult to Gear Hobber [CONS] Routine Reason for SW Consult: Patient from home, getting PT/OT s/p shoulder surgery 5-6 weeks ago. - Constitutional Vitals: Temp Pulse Resp BP Pulse Ox 98.3 F 81 15 105/68 96 09/15/18 06:48 09/15/18 06:48 09/15/18 06:48 09/15/18 06:48 09/15/18 06:48 General appearance: Present: cooperative, A&O X 3, pleasant, no acute distress, answers questions appropriately Exam: . - Head Head exam: Present: atraumatic, normal inspection - Eye Eye exam: Present: EOMI, normal appearance - Neck Neck exam general surgery: Present: supple, trachea midline - Respiratory Respiratory exam: Present: CTAB. Absent: respiratory distress - Cardiovascular Cardiovascular exam: Present: RRR, +S1, +S2 - GI/Abdominal GI/Abdominal exam: Present: normal bowel sounds. Absent: tenderness - Extremities Exam Extremities exam: Present: full ROM, normal inspection, radial pulses palpable and symmetrical - Neurological Exam Neurological exam: Present: alert, no focal deficits - Psychiatric Psychiatric exam: Present: normal affect, normal mood - Skin Skin exam: Present: dry, intact, warm - Patient Status Disposition: Home, Self-Care Condition: Good Functional capacity at discharge: independent ambulation Overall status at discharge: patient is back to baseline - Ambulatory Orders Ambulatory Orders: Basic Metabolic Panel [CHEM] Time Frame: 1 Week, Facility: [facility], Location: Lab - Discharge Instructions Follow Up With: Denzel Crawford DO [Non-Partnered Physician] - 09/24/18 3:30 pm - Diet and Activity Activity: increase activity as tolerated Diet: advance to your usual diet <BerlinLinaarnoldo - Last Filed: 09/16/18 15:06> Date of Encounter: 09/16/18 - Discharge Diagnosis (1) Hypertension Status: Chronic Qualifiers: Hypertension type: essential hypertension Qualified Code(s): I10 - Essential (primary) hypertension (2) History of pulmonary embolism Status: Chronic (3) Hyponatremia Status: Acute (4) Hypokalemia Status: Resolved (5) Elevated TSH Status: Resolved (6) Acute urinary retention Status: Acute Hospital course: Ms. Tellez is a 62 year old female - Time Spent with Patient Total time spent providing and/or coordinating discharge services: Date of admission: 09/10/18 22:39 Primary care physician: PCP NONE Consults: 09/10/18 21:56 Consult to Nephrology [CONS] Stat Consulting Provider: [facility]/DARSHAN/LUCIO/MORELIA Reason for Consult: Electrolyte abnormalities Call Completed: No 09/11/18 00:33 Consult to Gear Hobber [CONS] Routine Reason for SW Consult: Patient from home, getting PT/OT s/p shoulder surgery 5-6 weeks ago. - Constitutional Vitals: Temp Pulse Resp BP Pulse Ox 98.5 F 82 18 121/79 97 09/16/18 11:15 09/16/18 11:15 09/16/18 11:15 09/16/18 11:15 09/16/18 11:15 - Attending Attestation I have seen and examined this patient independently. I have discussed with resident physician Dr Brown regarding the discharge and follow up plan. Agree with the documentation.
--- NOTE | 2018-09-15 10:12 | Physician Discharge Referral ---
<aMk Brown - Last Filed: 09/15/18 10:17> Home Health/Hosp Referral Info Transfer to: Home Health Provider in Charge Post Discharge: PCP - Diagnosis (1) Acute urinary retention Status: Acute (2) Hyponatremia Status: Acute (3) Hypokalemia Status: Resolved (4) Hypertension Status: Chronic (5) Elevated TSH Status: Resolved (6) History of pulmonary embolism Status: Chronic - Respiratory Orders Smoking Cessation: Smoking cessation has been advised. For more information, call the [place] Tobacco Quit Line at 0-153-ZNYG-NOW. - Diet/Nutrition Diet/Nutrition Orders: Regular - Activity Activity Orders: Ambulate - Services Needed Following services are medically necessary services: Nursing, Physical Therapy, Occupational Therapy - Transfer Medications Home Medications: RX: Docusate [Colace] 100 mg PO BID PRN 09/11/18 [History] SUMAtriptan succinate [Imitrex] 25 mg PO BID PRN 09/11/18 [History] RX: Acetaminophen [Tylenol] 325 mg PO Q6HR PRN tablet 09/15/18 [Rx] RX: Apixaban [Eliquis] 5 mg PO BID tablet 09/15/18 [Rx] RX: Carvedilol [Coreg] 12.5 mg PO BIDWM tablet 09/15/18 [Rx] RX: Levothyroxine [Synthroid] 50 mcg PO DAILY@0630 tablet 09/15/18 [Rx] RX: Topiramate [Topamax] 25 mg PO BID tablet 09/15/18 [Rx] RX: Venlafaxine [Effexor] 75 mg PO BID tablet 09/15/18 [Rx] Allergies/Adverse Reactions: Allergy/AdvReac Type Severity Reaction Status Date / Time No Known Allergies Allergy Verified 09/11/18 12:57 Certification: Further, I certify that my clinical findings support that this patient is homebound (i.e. absences from home require considerable and taxing effort and are for medical reasons or orthodoxy services or infrequently or short duration when for other reasons) because: Homebound Reason: Patient requires assistance of a person or device to safely leave home Attestation: My signature below is to certify that this patient is under my care and that I, or nurse practitioner, or a physician's parts room assistant working with me, has a [id number] encounter with this patient. <Zackery Slade - Last Filed: 09/15/18 17:38> - Diagnosis (1) Hypertension Status: Chronic (2) History of pulmonary embolism Status: Chronic (3) Hyponatremia Status: Acute (4) Hypokalemia Status: Resolved (5) Elevated TSH Status: Resolved (6) Acute urinary retention Status: Acute - Respiratory Orders Smoking Cessation: Smoking cessation has been advised. For more information, call the [place] Tobacco Quit Line at 8-182-WAAG-NOW. Certification: Further, I certify that my clinical findings support that this patient is homebound (i.e. absences from home require considerable and taxing effort and are for medical reasons or orthodoxy services or infrequently or short duration when for other reasons) because: Attestation: My signature below is to certify that this patient is under my care and that I, or nurse practitioner, or a physician's parts room assistant working with me, has a [id number] encounter with this patient.
--- NOTE | 2018-09-15 11:43 | Internal Med Progress Note ---
<Mak Brown T - Last Filed: 09/15/18 14:52> Hospitalist Progress Note - Encounter Date of Encounter: 09/15/18 Time of Encounter: 11:43 - Subjective Interval History: Patient reports that she is currently comfortable. Denies CP, palpitations, weakness, SOB, N/V, changes in urination, changes in constipation. - Exam Vitals: Temp Pulse Resp BP Pulse Ox 98.3 F 81 15 105/68 96 09/15/18 06:48 09/15/18 06:48 09/15/18 06:48 09/15/18 06:48 09/15/18 06:48 Exam: . - Assessment and Plan (1) Hyponatremia Current Visit: Yes Status: Acute Assessment and Plan: Hyponatremia improving. 128 today up from 127 and 124. Continue monitoring in morning BMP (2) Hypokalemia Current Visit: Yes Status: Resolved Assessment and Plan: Patient's hypokalemia resolved. Today is 3.8. (3) Hypertension Current Visit: Yes Status: Chronic Assessment and Plan: Patient currently not hypertensive. Please follow up with primary care provider for outpatient management of blood pressure. (4) Elevated TSH Current Visit: Yes Status: Resolved Assessment and Plan: Continue levothyroxine. (5) History of pulmonary embolism Current Visit: No Status: Chronic Assessment and Plan: Continue Eloquis (6) Acute urinary retention Current Visit: Yes Status: Acute Assessment and Plan: Urology was consulted. They recommended patient remove Weaver cahther however she declined due to nary frequency. She will follow up with Dr. Guaman outpatient for workup of urinary symptoms within 1 week of discharge. Proper care for cather and risk of infection was discussed with patient. - Time Spent with Patient Total time spent is greater than 50% in coordination of care (as documented) at patient's floor/unit and/or counseling patient: Internal Medicine: Result - Labs CBC & Chem 7: 09/11/18 00:17 09/15/18 04:00 Labs: BMP 09/14/18 09/14/18 09/15/18 14:37 19:47 04:00 Sodium 124 L 127 L 128 L Potassium 3.7 3.7 3.8 Chloride 95 L 97 L 98 Carbon Dioxide 22 L 24 22 L BUN 10 11 13 Creatinine 0.55 L 0.62 0.58 L Glucose 105 100 102 Calcium 8.8 8.7 8.8 - ABG Interpretation ABG results: PT/INR, D-dimer PT 14.0 Seconds (9.4-12.1) H 09/10/18 19:20 D-Dimer 446 ng/mLFEU (0-500) 09/10/18 19:20 Consult Discharge Plan - Plan Referrals: Denzel Crawford DO [Non-Partnered Physician] - 09/24/18 3:30 pm <Zackery Slade - Last Filed: 09/15/18 17:25> Hospitalist Progress Note - Encounter Date of Encounter: 09/15/18 - Exam Vitals: Temp Pulse Resp BP Pulse Ox 98.6 F 94 15 117/80 96 09/15/18 14:11 09/15/18 14:11 09/15/18 14:11 09/15/18 14:11 09/15/18 14:11 - Assessment and Plan (1) Hypertension Current Visit: Yes Status: Chronic (2) History of pulmonary embolism Current Visit: No Status: Chronic (3) Hyponatremia Current Visit: Yes Status: Acute (4) Hypokalemia Current Visit: Yes Status: Resolved (5) Elevated TSH Current Visit: Yes Status: Resolved (6) Acute urinary retention Current Visit: Yes Status: Acute - Time Spent with Patient Total time spent is greater than 50% in coordination of care (as documented) at patient's floor/unit and/or counseling patient: Internal Medicine: Result - Labs CBC & Chem 7: 09/11/18 00:17 09/15/18 04:00 Labs: BMP 09/14/18 09/15/18 19:47 04:00 Sodium 127 L 128 L Potassium 3.7 3.8 Chloride 97 L 98 Carbon Dioxide 24 22 L BUN 11 13 Creatinine 0.62 0.58 L Glucose 100 102 Calcium 8.7 8.8 - ABG Interpretation ABG results: PT/INR, D-dimer PT 14.0 Seconds (9.4-12.1) H 09/10/18 19:20 D-Dimer 446 ng/mLFEU (0-500) 09/10/18 19:20 - Attending Attestation I have seen and examined this patient independently. I have discussed with resident physician Dr Brown regarding the management plan. Agree with the documentation. <Mak Brown - Last Filed: 09/15/18 14:52> (3) Hypertension Qualifiers: Hypertension type: essential hypertension Qualified Code(s): I10 - Essential (primary) hypertension <Zackery Slade - Last Filed: 09/15/18 17:25> (1) Hypertension Qualifiers: Hypertension type: essential hypertension Qualified Code(s): I10 - Essential (primary) hypertension
--- NOTE | 2018-09-15 12:45 | Nephrology Progress Note ---
Date of Encounter: 09/15/18 Time of Encounter: 12:45 - Assessment and Plan (1) Hyponatremia Current Visit: Yes Status: Acute Okay to liberate diet, and allow another 8-10 mEq correction today. She remains entirely asymptomatic. No need for 3% saline. Though she is asymptomatic, she must still have a slow rate of correction to help minimize her risk for CPM. She is safe for discharge and ongoing monitoring of her sodium on an outpatient basis. Thank you. (2) Hypertension Current Visit: Yes Status: Chronic Qualifiers: Hypertension type: essential hypertension Qualified Code(s): I10 - Essential (primary) hypertension (3) Hypokalemia Current Visit: Yes Status: Resolved (4) Anemia Current Visit: Yes Status: Resolved Qualifiers: Anemia type: unspecified type Qualified Code(s): D64.9 - Anemia, unspecified (5) Elevated TSH Current Visit: Yes Status: Resolved (6) Acute urinary retention Current Visit: Yes Status: Acute Subjective Principal diagnosis: Hyponatremia Interval history: Patient without new complaint. Objective - Vital Signs Vital signs: Vital Signs Temp Pulse Resp BP Pulse Ox 09/15/18 06:48 98.3 F 81 15 105/68 96 09/15/18 04:07 99.3 F 80 14 108/70 98 09/14/18 20:03 98.5 F 76 15 115/76 97 09/14/18 14:23 98.4 F 76 15 113/78 96 Intake and Output 09/14/18 09/15/18 09/15/18 23:59 07:59 15:59 Intake Total 0 / 0 0 / 0 120 / 120 Output Total 0 / 0 450 / 450 350 / 350 Balance 0 / 0 -450 / -450 -230 / -230 Intake: Oral 0 / 0 0 / 0 120 / 120 Output: Urine 0 / 0 Catheter 450 / 450 350 / 350 Other: Meal Breakfast Percent of Meal Consumed 100% Weight 101 kg Patient Weight 09/15/18 23:59 Weight 101 kg - General Appearance General appearance: Present: well-developed, well-nourished EENT: Present: ATNC Neck: Present: supple - Lab 09/11/18 00:17 09/15/18 04:00 Most recent lab results Calcium 8.8 mg/dL (8.6-10.3) 09/15/18 04:00 Phosphorus 2.6 mg/dL (2.7-4.5) L 09/11/18 11:35 Magnesium 2.3 mg/dL (1.6-2.6) 09/11/18 11:35 Urine Sodium 138.5 mEq/L 09/10/18 20:32 Consult Discharge Plan - Plan Referrals: Denzel Crawford DO [Non-Partnered Physician] - 09/24/18 3:30 pm
[2018-09-15] MEDS: Cholecalciferol (D-3) 1,000 UNIT TABLET PO SCH (14:05)
[2018-09-15] MEDS: Ketorolac 15 MG/ML VIAL IVP PRN (17:27)
[2018-09-16] MEDS: Ketorolac 15 MG/ML VIAL IVP PRN ×2 (02:49→09:06)
[2018-09-16 08:14] LABS: BUN/Creatinine Ratio 28 (6-26); Blood Urea Nitrogen 17 mg/dL (8-23); Calcium 9.1 mg/dL (8.6-10.3); Carbon Dioxide 25 mEq/L (23-29); Chloride 100 mEq/L (98-107); Glucose 117 mg/dL (70-105); Osmolality,Calculated 273 (280-300); Potassium 3.9 mEq/L (3.5-5.1); Sodium 130 mEq/L (136-145); eGFR For Non-African Americans > 60 (> 60)
[2018-09-16] MEDS: Topiramate 25 MG TABLET PO SCH (08:54)
[2018-09-16] MEDS: Apixaban 5 MG TABLET PO SCH (08:54)
[2018-09-16] MEDS: Cholecalciferol (D-3) 1,000 UNIT TABLET PO SCH (08:54)
--- NOTE | 2018-09-16 08:54 | Internal Med Progress Note ---
Hospitalist Progress Note - Encounter Date of Encounter: 09/16/18 - Subjective Interval History: Patient reports that she is currently comfortable. Denies CP, palpitations, weakness, SOB, N/V, changes in urination, changes in constipation. - Exam Vitals: Temp Pulse Resp BP Pulse Ox 98.5 F 80 16 115/74 98 09/16/18 07:42 09/16/18 07:42 09/16/18 07:42 09/16/18 07:42 09/16/18 07:42 Exam: Head: normocephalic atruamuatic Heart: RRR, +S1, +S2 Lungs: CTAB Abdomen: nontender, nondistended, normal bowel sounds Extremities: radial pulses felt b/l Skin: warm, dry , intact Urogenital: Catheter - Assessment and Plan (1) Acute urinary retention Current Visit: Yes Status: Acute Assessment and Plan: Urology was consulted. They recommended patient remove Weaver cahther however she declined due to nary frequency. She will follow up with Dr. Guaman outpatient for workup of urinary symptoms within 1 week of discharge. Proper care for cather and risk of infection was discussed with patient. (2) Hyponatremia Current Visit: Yes Status: Acute Assessment and Plan: Hyponatremia improving. 128 today up from 127 and 124. Continue monitoring in morning BMP (3) Hypokalemia Current Visit: Yes Status: Resolved Assessment and Plan: Patient's hypokalemia resolved. Today is 3.8. (4) Hypertension Current Visit: Yes Status: Chronic Assessment and Plan: Patient currently not hypertensive. Please follow up with primary care provider for outpatient management of blood pressure. (5) Elevated TSH Current Visit: Yes Status: Resolved Assessment and Plan: Continue levothyroxine. (6) History of pulmonary embolism Current Visit: No Status: Chronic Assessment and Plan: Continue Eloquis - Time Spent with Patient Total time spent is greater than 50% in coordination of care (as documented) at patient's floor/unit and/or counseling patient: Internal Medicine: Result - Labs CBC & Chem 7: 09/11/18 00:17 09/16/18 07:21 Labs: BMP 09/16/18 07:21 Sodium 130 L Potassium 3.9 Chloride 100 Carbon Dioxide 25 BUN 17 Creatinine 0.60 Glucose 117 H Calcium 9.1 - ABG Interpretation ABG results: PT/INR, D-dimer PT 14.0 Seconds (9.4-12.1) H 09/10/18 19:20 D-Dimer 446 ng/mLFEU (0-500) 09/10/18 19:20 Consult Discharge Plan - Plan Referrals: Denzel Crawford DO [Non-Partnered Physician] - 09/24/18 3:30 pm (4) Hypertension Qualifiers: Hypertension type: essential hypertension Qualified Code(s): I10 - Essential (primary) hypertension
[2018-09-16] MEDS: *HR* LORazepam 0.5 MG TABLET PO PRN (08:59)
[2018-09-16 12:00] VITALS: BP 121/79
--- NOTE | 2018-09-16 15:09 | Internal Med Progress Note ---
Hospitalist Progress Note - Encounter Date of Encounter: 09/16/18 Time of Encounter: 09:00 - Subjective Interval History: Patient feels fine. Denies chest pain, shortness of breath, abdominal pain. Has good appetite. Can walk in room. - Exam Vitals: Temp Pulse Resp BP Pulse Ox 98.5 F 82 18 121/79 97 09/16/18 11:15 09/16/18 11:15 09/16/18 11:15 09/16/18 11:15 09/16/18 11:15 Exam: Pt is AAO x 3, in NAD HEENT: NC/AT, PERRL Neck: Supple, no JVD, no LAD Lungs: CTA b/l Heart: S1S2, RRR Abd: Soft, nontender, BS present Ext: ROM wnl, no pedal edema Neuro: No focal deficit . - Assessment and Plan (1) Hypertension Current Visit: Yes Status: Chronic Assessment and Plan: Patient currently not hypertensive. Please follow up with primary care provider for outpatient management of blood pressure. (2) History of pulmonary embolism Current Visit: No Status: Chronic Assessment and Plan: Continue Eliquis (3) Hyponatremia Current Visit: Yes Status: Acute Assessment and Plan: Hyponatremia improved. Most likely due to urinary retention which has been treated with cath. 130 today up from 128, 127 and 124. (4) Hypokalemia Current Visit: Yes Status: Resolved Assessment and Plan: Patient's hypokalemia resolved. Today is 3.9 (5) Elevated TSH Current Visit: Yes Status: Resolved Assessment and Plan: Mild elevated TSH possibly due to euthyroid sickness. Continue levothyroxine. Follow up as out patient. (6) Acute urinary retention Current Visit: Yes Status: Acute Assessment and Plan: Urology was consulted. They recommended patient remove Weaver cahther however she declined due to nary frequency. She will follow up with Dr. Guaman outpatient for workup of urinary symptoms within 1 week of discharge. Proper care for cather and risk of infection was discussed with patient. Nephrology has also been in to see patient today and they are okay to d/c her. Consider d /c today. - Summary of Assessment and Plan Summary of Assessment and Plan: Pt was discharged home today. Discharge summary is updated. - Time Spent with Patient Total time spent is greater than 50% in coordination of care (as documented) at patient's floor/unit and/or counseling patient: 25 - 35 minutes Plan of Care Discussed with: patient Internal Medicine: Result - Labs CBC & Chem 7: 09/11/18 00:17 09/16/18 07:21 Labs: BMP 09/16/18 07:21 Sodium 130 L Potassium 3.9 Chloride 100 Carbon Dioxide 25 BUN 17 Creatinine 0.60 Glucose 117 H Calcium 9.1 - ABG Interpretation ABG results: PT/INR, D-dimer PT 14.0 Seconds (9.4-12.1) H 09/10/18 19:20 D-Dimer 446 ng/mLFEU (0-500) 09/10/18 19:20 Consult Discharge Plan - Plan Referrals: Denzel Crawford DO [Non-Partnered Physician] - 09/24/18 3:30 pm (1) Hypertension Qualifiers: Hypertension type: essential hypertension Qualified Code(s): I10 - Essential (primary) hypertension
== END 2018-09-16 16:44 | disposition home health service (06) | DRG 641 ==
LOC: EMEROOARM 17:54 → SUATTDRO 22:39 → ICNU 22:39 → 3ANU 09-14 09:19
PROVIDERS: ADMIT Pediatrics; ATTEND Internal Medicine

== ENCOUNTER 2020-01-12 20:18 | Inpatient (IN) ==
[2020-01-12] MEDS ORDERED: *HR* HYDROcodone/Acet 5/325 mg TABLET PO ONE (20:32)
[2020-01-12] MEDS ORDERED: *HR* HYDROmorphone (PF) 1 MG/ML SYRINGE IVP ONE (21:38)
[2020-01-12] MEDS: 0.9 % Sodium Chloride 1,000 ML IVC SCH (22:13)
[2020-01-12 22:29] LABS: Basophils % 0.3 %; Eosinophils # 0.4 K/mcL (0.0-0.6); Eosinophils % 4.8 %; Hematocrit 40.2 % (35.3-44.9); Hemoglobin 12.9 g/dL (11.5-15.4); Immature Granulocytes % 0.8 % (0-4); Lymphocytes # 1.7 K/mcL (0.6-4.6); Lymphocytes % 21.6 %; Mean Corpuscular HGB Conc 32.1 g/dL (31.6-35.5); Mean Corpuscular Hemoglobin 29.5 pg (28.0-33.3); Monocytes # 0.7 K/mcL (0.0-1.3); Monocytes % 8.9 %; Platelet Count 274 K/mcL (140-400); Red Blood Count 4.37 M/mcL (3.82-4.97); Red Cell Distribution Width 15.9 % (11.5-14.5); Segmented Neutrophils % 63.6 %; White Blood Count 7.9 K/mcL (4.3-11.1)
[2020-01-12 22:48] LABS: BUN/Creatinine Ratio 13 (6-26); Blood Urea Nitrogen 8 mg/dL (8-23); Calcium 9.5 mg/dL (8.6-10.3); Carbon Dioxide 26 mEq/L (23-29); Chloride 92 mEq/L (98-107); Glucose 92 mg/dL (70-105); Osmolality,Calculated 260 (280-300); Potassium 4.2 mEq/L (3.5-5.1); Sodium 126 mEq/L (136-145); eGFR For African Americans > 60 (> 60); eGFR For Non-African Americans > 60 (> 60)
[2020-01-13] MEDS ORDERED: Naloxone 0.4 MG/ML INJ IVP PRN ×2 (00:53→10:06)
[2020-01-13] MEDS ORDERED: Ketorolac 30 MG/ML VIAL IVP PRN (00:53)
[2020-01-13 01:41] LABS: Basophils % 0.4 %; Eosinophils # 0.3 K/mcL (0.0-0.6); Eosinophils % 4.2 %; Hematocrit 34.7 % (35.3-44.9); Hemoglobin 11.4 g/dL (11.5-15.4); Immature Granulocytes % 0.4 % (0-4); Lymphocytes # 1.9 K/mcL (0.6-4.6); Lymphocytes % 24.6 %; Mean Corpuscular HGB Conc 32.9 g/dL (31.6-35.5); Mean Corpuscular Hemoglobin 30.2 pg (28.0-33.3); Mean Corpuscular Volume 91.8 fL (83.0-100.0); Mean Platelet Volume 8.9 fL (9.4-12.4); Monocytes # 0.9 K/mcL (0.0-1.3); Monocytes % 11.2 %; Neutrophils # 4.5 K/mcL (1.6-8.9); Platelet Count 247 K/mcL (140-400); Red Blood Count 3.78 M/mcL (3.82-4.97); Red Cell Distribution Width 15.9 % (11.5-14.5); Segmented Neutrophils % 59.2 %; White Blood Count 7.6 K/mcL (4.3-11.1)
[2020-01-13 01:42] LABS: INR 1.1
[2020-01-13 01:55] LABS: BUN/Creatinine Ratio 16 (6-26); Blood Urea Nitrogen 9 mg/dL (8-23); Calcium 8.8 mg/dL (8.6-10.3); Carbon Dioxide 24 mEq/L (23-29); Chloride 97 mEq/L (98-107); Glucose 114 mg/dL (70-105); Osmolality,Calculated 266 (280-300); Potassium 4.1 mEq/L (3.5-5.1); Sodium 128 mEq/L (136-145); eGFR For African Americans > 60 (> 60); eGFR For Non-African Americans > 60 (> 60)
[2020-01-13 02:10] LABS: Thyroid Stimulating Hormone 9.218 mcIU/mL (0.340-5.600)
[2020-01-13] MEDS ORDERED: Cosyntropin 250 MCG/2 ML VIAL IVP ONE (04:37)
[2020-01-13 05:28] LABS: Bilirubin,Urine Negative (Negative); Blood,Urine Trace (Negative); Clarity,Urine Clear (Clear); Color,Urine Yellow (Yellow); Glucose,Urine (UA) Normal (Normal); Ketones,Urine Negative (Negative); Leukocyte Esterase,Urine Large (Negative); Nitrite,Urine Negative (Negative); PH,Urine 6.5 pH Units (5.0-8.0); Protein,Urine Negative (Neg-Trace); Specific Gravity,Urine 1.008 (1.010-1.025); Urobilinogen,Urine Normal (Normal)
[2020-01-13 05:30] LABS: Bacteria,Urine None Seen per hpf (None-Few); Hyaline Casts,Urine None Seen per lpf (None-Few); RBC,Urine 0-3 per hpf (0-3); Squamous Epithelial Cell,Urine Few per lpf (None-Few); WBC,Urine 15-30 per hpf (0-3)
[2020-01-13] MEDS ORDERED: Levalbuterol Neb 1.25 MG/3 ML IH PRN ×2 (05:38→10:06)
[2020-01-13] MEDS: 0.9 % Sodium Chloride 1,000 ML IVC SCH ×2 (05:53→22:34)
[2020-01-13] MEDS ORDERED: *HR* FentaNYL (PF) 100 MCG/2 ML VIAL ONE (07:46)
[2020-01-13] MEDS ORDERED: Hydrocortisone Sodium Succ 100 MG/2 ML VIAL IVP ONE (07:47)
[2020-01-13] MEDS ORDERED: *HR* Succinylcholine 200 MG/10 ML VIAL IVP ONE (07:47)
[2020-01-13] MEDS ORDERED: *HR* Propofol 200 MG/20 ML VIAL IVP ONE (07:47)
[2020-01-13] MEDS ORDERED: Lidocaine -MPF 2% 2 ML VIAL ONE (07:47)
[2020-01-13] MEDS ORDERED: *HR* Midazolam HCl 2 MG/2 ML VIAL ONE (08:27)
[2020-01-13] MEDS ORDERED: ceFAZolin 2,000 MG in 0.9 % Sodium Chloride 100 ML IVPB ONE (08:35)
[2020-01-13] MEDS ORDERED: *HR* Promethazine 25 MG/ML VIAL IVP PRN (08:36)
[2020-01-13] MEDS ORDERED: *HR* HYDROmorphone PF 0.5 MG/0.5 ML SYRINGE IVP PRN (08:36)
[2020-01-13] MEDS ORDERED: *HR* OxyCODONE Immed Rel 5 MG TABLET PO PRN (08:36)
[2020-01-13] MEDS ORDERED: Ondansetron 4 MG/2 ML VIAL IVP ONE (08:36)
[2020-01-13] MEDS ORDERED: CeFAZolin Syr 2,000MG/20 ML 2,000 MG/20 ML SYRINGE IVPB ONE (08:45)
[2020-01-13] MEDS ORDERED: *HR* Labetalol 20 MG/4 ML SYRINGE IVP ONE (09:21)
[2020-01-13] MEDS ORDERED: Ondansetron 4 MG/2 ML VIAL ONE (09:21)
[2020-01-13 09:59] LABS: Hematocrit 37.2 % (35.3-44.9); Hemoglobin 11.9 g/dL (11.5-15.4)
[2020-01-13] MEDS ORDERED: SUMAtriptan succinate 25 MG TABLET PO PRN (10:06)
[2020-01-13] MEDS ORDERED: Ondansetron 4 MG/2 ML VIAL IVP PRN (10:06)
[2020-01-13] MEDS ORDERED: Sennosides 8.6 MG TABLET PO PRN (10:06)
[2020-01-13] MEDS ORDERED: 0.9 % Sodium Chloride 1,000 ML IVC SCH (10:06)
[2020-01-13] MEDS: Topiramate 25 MG TABLET PO SCH ×2 (12:54→20:24)
[2020-01-13] MEDS: carvediloL 25 MG TABLET PO SCH ×2 (12:54→20:23)
[2020-01-13] MEDS: Cholecalciferol (D-3) 1,000 UNIT (25MCG) TABLET PO SCH (12:55)
[2020-01-13] MEDS: Apixaban 5 MG TABLET PO SCH ×2 (12:55→20:23)
[2020-01-13] MEDS: *HR* OxyCODONE Immed Rel 5 MG TABLET PO PRN ×2 (15:17→20:42)
[2020-01-13] MEDS: ceFAZolin 2,000 MG in 0.9 % Sodium Chloride 100 ML IVPB SCH ×2 (15:52→23:23)
[2020-01-13] MEDS: *HR* OxyCODONE/APAP 5/325 TABLET PO PRN (23:23)
[2020-01-14] MEDS: *HR* OxyCODONE Immed Rel 5 MG TABLET PO PRN ×4 (02:49→20:53)
[2020-01-14 04:37] LABS: Basophils % 0.3 %; Eosinophils # 0.2 K/mcL (0.0-0.6); Eosinophils % 2.4 %; Hemoglobin 10.5 g/dL (11.5-15.4); Immature Granulocytes % 0.5 % (0-4); Lymphocytes % 25.8 %; Mean Corpuscular HGB Conc 31.8 g/dL (31.6-35.5); Mean Corpuscular Hemoglobin 30.1 pg (28.0-33.3); Mean Corpuscular Volume 94.6 fL (83.0-100.0); Mean Platelet Volume 8.8 fL (9.4-12.4); Monocytes # 0.9 K/mcL (0.0-1.3); Neutrophils # 4.5 K/mcL (1.6-8.9); Platelet Count 239 K/mcL (140-400); Red Blood Count 3.49 M/mcL (3.82-4.97); Red Cell Distribution Width 16.5 % (11.5-14.5); White Blood Count 7.6 K/mcL (4.3-11.1)
[2020-01-14 04:55] LABS: BUN/Creatinine Ratio 18 (6-26); Blood Urea Nitrogen 11 mg/dL (8-23); Calcium 8.7 mg/dL (8.6-10.3); Carbon Dioxide 27 mEq/L (23-29); Chloride 102 mEq/L (98-107); Glucose 108 mg/dL (70-105); Osmolality,Calculated 276 (280-300); Potassium 4.6 mEq/L (3.5-5.1); Sodium 133 mEq/L (136-145); eGFR For African Americans > 60 (> 60); eGFR For Non-African Americans > 60 (> 60)
[2020-01-14] MEDS: carvediloL 25 MG TABLET PO SCH ×2 (09:04→20:54)
[2020-01-14] MEDS: Topiramate 25 MG TABLET PO SCH ×2 (09:05→20:53)
[2020-01-14] MEDS: Cholecalciferol (D-3) 1,000 UNIT (25MCG) TABLET PO SCH (09:06)
[2020-01-14] MEDS: Apixaban 5 MG TABLET PO SCH ×2 (09:22→20:53)
[2020-01-14] MEDS ORDERED: Hydrocortisone Sodium Succ 100 MG/2 ML VIAL IVP ONE (09:43)
[2020-01-14] MEDS: 0.9 % Sodium Chloride 1,000 ML IVC SCH (10:46)
[2020-01-15] MEDS: *HR* OxyCODONE Immed Rel 5 MG TABLET PO PRN ×4 (02:21→20:05)
[2020-01-15 02:58] LABS: Hematocrit 31.9 % (35.3-44.9); Hemoglobin 10.2 g/dL (11.5-15.4); Mean Corpuscular Hemoglobin 30.4 pg (28.0-33.3); Mean Corpuscular Volume 95.2 fL (83.0-100.0); Mean Platelet Volume 9.1 fL (9.4-12.4); Platelet Count 238 K/mcL (140-400); Red Blood Count 3.35 M/mcL (3.82-4.97); Red Cell Distribution Width 16.7 % (11.5-14.5); White Blood Count 8.3 K/mcL (4.3-11.1)
[2020-01-15 03:17] LABS: BUN/Creatinine Ratio 21 (6-26); Blood Urea Nitrogen 12 mg/dL (8-23); Carbon Dioxide 25 mEq/L (23-29); Chloride 102 mEq/L (98-107); Glucose 101 mg/dL (70-105); Osmolality,Calculated 276 (280-300); Sodium 133 mEq/L (136-145); eGFR For African Americans > 60 (> 60); eGFR For Non-African Americans > 60 (> 60)
[2020-01-15] MEDS: Apixaban 5 MG TABLET PO SCH ×2 (08:53→20:05)
[2020-01-15] MEDS: Topiramate 25 MG TABLET PO SCH ×2 (08:53→20:04)
[2020-01-15] MEDS: carvediloL 25 MG TABLET PO SCH ×2 (08:53→20:06)
[2020-01-15] MEDS: Cholecalciferol (D-3) 1,000 UNIT (25MCG) TABLET PO SCH (08:53)
[2020-01-15] MEDS: predniSONE 5 MG TABLET PO SCH (08:54)
[2020-01-15] MEDS: *HR* OxyCODONE/APAP 5/325 TABLET PO PRN (23:09)
[2020-01-16 08:00] LABS: Basophils % 0.7 %; Eosinophils # 0.3 K/mcL (0.0-0.6); Eosinophils % 5.1 %; Hematocrit 33.8 % (35.3-44.9); Hemoglobin 10.5 g/dL (11.5-15.4); Immature Granulocytes % 0.4 % (0-4); Lymphocytes % 35.3 %; Mean Corpuscular HGB Conc 31.1 g/dL (31.6-35.5); Mean Corpuscular Hemoglobin 29.7 pg (28.0-33.3); Mean Corpuscular Volume 95.5 fL (83.0-100.0); Mean Platelet Volume 8.9 fL (9.4-12.4); Monocytes # 0.7 K/mcL (0.0-1.3); Monocytes % 12.9 %; Neutrophils # 2.6 K/mcL (1.6-8.9); Platelet Count 264 K/mcL (140-400); Red Blood Count 3.54 M/mcL (3.82-4.97); Red Cell Distribution Width 16.7 % (11.5-14.5); Segmented Neutrophils % 45.6 %; White Blood Count 5.7 K/mcL (4.3-11.1)
[2020-01-16 08:13] LABS: BUN/Creatinine Ratio 20 (6-26); Blood Urea Nitrogen 12 mg/dL (8-23); Calcium 9.1 mg/dL (8.6-10.3); Carbon Dioxide 27 mEq/L (23-29); Chloride 103 mEq/L (98-107); Glucose 94 mg/dL (70-105); Osmolality,Calculated 282 (280-300); Potassium 3.8 mEq/L (3.5-5.1); Sodium 136 mEq/L (136-145); eGFR For African Americans > 60 (> 60); eGFR For Non-African Americans > 60 (> 60)
[2020-01-16] MEDS: Topiramate 25 MG TABLET PO SCH ×2 (08:27→20:29)
[2020-01-16] MEDS: predniSONE 5 MG TABLET PO SCH (08:27)
[2020-01-16] MEDS: Apixaban 5 MG TABLET PO SCH ×2 (08:27→20:29)
[2020-01-16] MEDS: Cholecalciferol (D-3) 1,000 UNIT (25MCG) TABLET PO SCH (08:27)
[2020-01-16] MEDS: *HR* OxyCODONE/APAP 5/325 TABLET PO PRN (08:27)
[2020-01-16] MEDS: carvediloL 25 MG TABLET PO SCH ×2 (08:28→20:29)
[2020-01-16] MEDS: Ketorolac 30 MG/ML VIAL IVP PRN ×2 (11:28→20:29)
[2020-01-16] MEDS: *HR* OxyCODONE Immed Rel 5 MG TABLET PO PRN (18:09)
[2020-01-17 07:14] VITALS: BP 130/83
[2020-01-17] MEDS: carvediloL 25 MG TABLET PO SCH (09:00)
[2020-01-17] MEDS: *HR* OxyCODONE Immed Rel 5 MG TABLET PO PRN (09:00)
[2020-01-17] MEDS: Apixaban 5 MG TABLET PO SCH (09:01)
[2020-01-17] MEDS: Topiramate 25 MG TABLET PO SCH (09:01)
[2020-01-17] MEDS: predniSONE 5 MG TABLET PO SCH (09:01)
[2020-01-17] MEDS: Cholecalciferol (D-3) 1,000 UNIT (25MCG) TABLET PO SCH (09:01)
[2020-01-17] MEDS: Ketorolac 30 MG/ML VIAL IVP PRN (10:52)
[2020-01-17] MEDS: *HR* OxyCODONE/APAP 5/325 TABLET PO PRN (12:35)
== END 2020-01-17 12:39 | DRG 481 ==
LOC: 3NENU 20:18 → EMEROOARM 20:18 → SUATTDRO 23:02 → 3NENU 23:21 → 3ANU 01-14 17:48
PROVIDERS: ADMIT Internal Medicine; ATTEND Internal Medicine

== ENCOUNTER 2021-08-16 18:04 | Observation (INO) ==
[2021-08-16] MEDS ORDERED: Tetracaine 0.5% OPTH 80 DROP/4 ML BOTTLE LEFT EYE ONE (18:16)
[2021-08-16] MEDS ORDERED: Fluorescein Sodium STRIP OP ONE (18:16)
[2021-08-16 18:47] LABS: Basophils % 0.2 %; Eosinophils # 0.1 K/mcL (0.0-0.6); Eosinophils % 0.8 %; Hematocrit 40.6 % (35.3-44.9); Hemoglobin 13.7 g/dL (11.5-15.4); Immature Granulocytes % 0.5 % (0-4); Lymphocytes # 0.9 K/mcL (0.6-4.6); Lymphocytes % 14.8 %; Mean Corpuscular HGB Conc 33.7 g/dL (31.6-35.5); Mean Corpuscular Hemoglobin 31.6 pg (28.0-33.3); Mean Corpuscular Volume 93.5 fL (83.0-100.0); Mean Platelet Volume 9.2 fL (9.4-12.4); Monocytes # 0.9 K/mcL (0.0-1.3); Monocytes % 14.6 %; Neutrophils # 4.4 K/mcL (1.6-8.9); Platelet Count 188 K/mcL (140-400); Red Blood Count 4.34 M/mcL (3.82-4.97); Red Cell Distribution Width 13.1 % (11.5-14.5); Segmented Neutrophils % 69.1 %; White Blood Count 6.4 K/mcL (4.3-11.1)
[2021-08-16 19:07] LABS: BUN/Creatinine Ratio 12 (6-26); Blood Urea Nitrogen 5 mg/dL (8-23); Calcium 8.2 mg/dL (8.6-10.3); Carbon Dioxide 25 mEq/L (23-29); Chloride 88 mEq/L (98-107); Glucose 90 mg/dL (70-105); Osmolality,Calculated 253 (280-300); Potassium 2.8 mEq/L (3.5-5.1); Sodium 123 mEq/L (136-145); eGFR For African Americans > 60 (> 60); eGFR For Non-African Americans > 60 (> 60)
[2021-08-16] MEDS ORDERED: Potassium Chloride Elixir 20 MEQ/15 ML UDC PO ONE (19:09)
[2021-08-16] MEDS ORDERED: 0.9 % Sodium Chloride 500 ML IVC ONE (19:09)
[2021-08-16] MEDS ORDERED: Tdap (Boostrix) Vaccine 0.5 ML SYRINGE IM ONE (20:25)
[2021-08-16] MEDS ORDERED: Erythromycin OPTH Oint LEFT EYE ONE (20:25)
[2021-08-16] MEDS ORDERED: Magnesium Sulfate 1 GM/102 ML PIGGYBACK IVPB ONE (21:31)
[2021-08-16] MEDS ORDERED: Morphine Sulfate 2 MG/ML SYRINGE IVP STA (21:31)
[2021-08-16] MEDS ORDERED: Naloxone 0.4 MG/ML INJ IVP PRN (21:40)
[2021-08-16] MEDS ORDERED: Melatonin 3 MG TABLET PO PRN (21:40)
[2021-08-16] MEDS ORDERED: Gadolinium Contrast Agent (WT Based) IV PRN (22:04)
[2021-08-17] MEDS ORDERED: Acetaminophen 325 MG TABLET PO PRN (02:33)
[2021-08-17] MEDS ORDERED: *HR* HYDROcodone/Acet 5/325 mg TABLET PO PRN (02:33)
[2021-08-17] MEDS: Hydrocortisone 10 MG TABLET PO SCH ×2 (03:21→09:35)
[2021-08-17] MEDS: *HR* HYDROcodone/Acet 10/325 mg TABLET PO PRN ×2 (03:27→12:18)
[2021-08-17] MEDS: Erythromycin OPTH Oint LEFT EYE SCH ×2 (03:27→09:36)
[2021-08-17 05:48] LABS: Hematocrit 37.5 % (35.3-44.9); Hemoglobin 12.9 g/dL (11.5-15.4); Mean Corpuscular HGB Conc 34.4 g/dL (31.6-35.5); Mean Corpuscular Hemoglobin 32.6 pg (28.0-33.3); Mean Corpuscular Volume 94.7 fL (83.0-100.0); Mean Platelet Volume 9.5 fL (9.4-12.4); Platelet Count 184 K/mcL (140-400); Red Blood Count 3.96 M/mcL (3.82-4.97); Red Cell Distribution Width 13.2 % (11.5-14.5); White Blood Count 5.3 K/mcL (4.3-11.1)
[2021-08-17] MEDS ORDERED: Cholecalciferol (D-3) 1,000 UNIT (25MCG) TABLET PO SCH (09:00)
[2021-08-17] MEDS ORDERED: Multivit/Ca/Min/Fe/FA 1 TAB TABLET PO SCH (09:00)
[2021-08-17] MEDS ORDERED: Apixaban 5 MG TABLET PO SCH (09:00)
[2021-08-17 10:20] LABS: Alanine Aminotransferase 25 Units/L (7-52); Albumin 3.1 g/dL (3.5-5.7); Albumin/Globulin Ratio 1.1 (1.1-2.2); Alkaline Phosphatase 106 Units/L (34-104); Aspartate Amino Transferase 35 Units/L (13-39); BUN/Creatinine Ratio 12 (6-26); Bilirubin,Total 0.8 mg/dL (0.3-1.0); Blood Urea Nitrogen 5 mg/dL (8-23); Calcium 8.2 mg/dL (8.6-10.3); Carbon Dioxide 26 mEq/L (23-29); Chloride 93 mEq/L (98-107); Globulin 2.9 g/dL (2.4-3.5); Glucose 94 mg/dL (70-105); Magnesium 1.8 mg/dL (1.6-2.6); Osmolality,Calculated 261 (280-300); Potassium 3.5 mEq/L (3.5-5.1); Sodium 127 mEq/L (136-145); eGFR For African Americans > 60 (> 60); eGFR For Non-African Americans > 60 (> 60)
[2021-08-17] MEDS ORDERED: Topiramate 25 MG TABLET PO SCH (11:00)
[2021-08-17 11:27] VITALS: BP 132/84; PULSE 97; TEMP 98.5; O2SAT 97
[2021-08-17 11:31] LABS: Thyroid Stimulating Hormone 6.898 mcIU/mL (0.340-5.600)
[2021-08-17] MEDS ORDERED: Gabapentin 400 MG CAPSULE PO SCH (15:00)
[2021-08-18] MEDS ORDERED: lisinopriL 10 MG TABLET PO SCH (09:00)
== END 2021-08-17 15:42 | disposition home health service (06) ==
LOC: 3ANU 18:04 → EMEROOARM 18:04 → SUATTDRO 21:50 → 3ANU 22:28
PROVIDERS: ADMIT Internal Medicine; ATTEND Internal Medicine

== ENCOUNTER 2021-10-22 12:55 | Inpatient (IN) ==
[2021-10-22] MEDS ORDERED: Isovue-370 500 ML BOTTLE IVP ONE (13:45)
[2021-10-22] MEDS ORDERED: *HR* LORazepam 2 MG/ML VIAL IVP ONE ×2 (13:46→15:42)
[2021-10-22 14:19] LABS: Basophils % 0.4 %; Eosinophils % 0.3 %; Hematocrit 39.7 % (35.3-44.9); Hemoglobin 13.3 g/dL (11.5-15.4); Immature Granulocytes % 0.4 % (0-4); Lymphocytes # 0.8 K/mcL (0.6-4.6); Lymphocytes % 11.8 %; Mean Corpuscular HGB Conc 33.5 g/dL (31.6-35.5); Mean Corpuscular Hemoglobin 32.6 pg (28.0-33.3); Mean Corpuscular Volume 97.3 fL (83.0-100.0); Monocytes # 0.6 K/mcL (0.0-1.3); Monocytes % 9.3 %; Neutrophils # 5.3 K/mcL (1.6-8.9); Platelet Count 428 K/mcL (140-400); Red Blood Count 4.08 M/mcL (3.82-4.97); Red Cell Distribution Width 14.1 % (11.5-14.5); Segmented Neutrophils % 77.8 %; White Blood Count 6.8 K/mcL (4.3-11.1)
[2021-10-22 14:42] LABS: Alanine Aminotransferase 17 Units/L (7-52); Albumin 3.6 g/dL (3.5-5.7); Albumin/Globulin Ratio 1.1 (1.1-2.2); Alkaline Phosphatase 144 Units/L (34-104); Aspartate Amino Transferase 17 Units/L (13-39); BUN/Creatinine Ratio 14 (6-26); Bilirubin,Total 0.5 mg/dL (0.3-1.0); Blood Urea Nitrogen 7 mg/dL (8-23); Calcium 9.6 mg/dL (8.6-10.3); Carbon Dioxide 24 mEq/L (23-29); Chloride 100 mEq/L (98-107); Globulin 3.4 g/dL (2.4-3.5); Glucose 119 mg/dL (70-105); Lipase 31 Units/L (11-82); Magnesium 1.6 mg/dL (1.6-2.6); Osmolality,Calculated 275 (280-300); Potassium 3.6 mEq/L (3.5-5.1); Sodium 133 mEq/L (136-145); Troponin I < 0.03 ng/mL (< 0.04); eGFR For African Americans > 60 (> 60); eGFR For Non-African Americans > 60 (> 60)
[2021-10-22 14:50] LABS: Thyroid Stimulating Hormone 4.227 mcIU/mL (0.340-5.600)
[2021-10-22] MEDS: Nitroglycerin 0.4 MG TAB.SUBL SL PRN ×3 (16:10→17:10)
[2021-10-22] MEDS ORDERED: Naloxone 0.4 MG/ML INJ IVP PRN (17:03)
[2021-10-22] MEDS ORDERED: Melatonin 3 MG TABLET PO PRN (17:03)
[2021-10-22] MEDS ORDERED: Ondansetron 4 MG/2 ML VIAL IVP PRN (17:03)
[2021-10-22] MEDS ORDERED: SUMAtriptan succinate 25 MG TABLET PO PRN (17:58)
[2021-10-22] MEDS: Aspirin Enteric Coated 81 MG Tablet PO SCH (18:32)
[2021-10-22] MEDS ORDERED: Hydrocortisone 10 MG TABLET PO SCH (21:00)
[2021-10-22] MEDS: Apixaban 5 MG TABLET PO SCH (21:32)
[2021-10-22] MEDS: Gabapentin 400 MG CAPSULE PO SCH (21:32)
[2021-10-22] MEDS: *HR* LORazepam 1 MG TABLET PO SCH (21:33)
[2021-10-22] MEDS: *HR* HYDROcodone/Acet 5/325 mg TABLET PO PRN (21:33)
[2021-10-23 03:03] LABS: Basophils % 0.9 %; Eosinophils # 0.1 K/mcL (0.0-0.6); Hematocrit 36.2 % (35.3-44.9); Hemoglobin 11.8 g/dL (11.5-15.4); Immature Granulocytes % 0.2 % (0-4); Lymphocytes # 1.4 K/mcL (0.6-4.6); Lymphocytes % 32.6 %; Mean Corpuscular HGB Conc 32.6 g/dL (31.6-35.5); Mean Corpuscular Hemoglobin 32.2 pg (28.0-33.3); Mean Corpuscular Volume 98.9 fL (83.0-100.0); Mean Platelet Volume 9.1 fL (9.4-12.4); Monocytes # 0.6 K/mcL (0.0-1.3); Monocytes % 13.1 %; Neutrophils # 2.2 K/mcL (1.6-8.9); Platelet Count 346 K/mcL (140-400); Red Blood Count 3.66 M/mcL (3.82-4.97); Red Cell Distribution Width 14.2 % (11.5-14.5); Segmented Neutrophils % 50.2 %; White Blood Count 4.4 K/mcL (4.3-11.1)
[2021-10-23 03:20] LABS: BUN/Creatinine Ratio 13 (6-26); Blood Urea Nitrogen 7 mg/dL (8-23); Calcium 8.8 mg/dL (8.6-10.3); Carbon Dioxide 27 mEq/L (23-29); Chloride 102 mEq/L (98-107); Chol/HDL Ratio 2.3 (0-4.9); Cholesterol 143 mg/dL (< 200); Glucose 107 mg/dL (70-105); HDL Cholesterol 62 mg/dL (40-59); LDL Cholesterol,Calculated 66 mg/dL (< 100); Osmolality,Calculated 280 (280-300); Potassium 3.5 mEq/L (3.5-5.1); Sodium 136 mEq/L (136-145); Triglycerides 74 mg/dL (< 150); eGFR For African Americans > 60 (> 60); eGFR For Non-African Americans > 60 (> 60)
[2021-10-23] MEDS: *HR* HYDROcodone/Acet 5/325 mg TABLET PO PRN ×3 (03:27→20:55)
[2021-10-23 03:38] LABS: Estimated Average Glucose 85 mg/dl; Hemoglobin A1C 4.6 %
[2021-10-23] MEDS ORDERED: Regadenoson 0.4 MG/5 ML SYRINGE IVP ONE (06:26)
[2021-10-23] MEDS: lisinopriL 10 MG TABLET PO SCH (10:02)
[2021-10-23] MEDS: Topiramate 25 MG TABLET PO SCH (10:02)
[2021-10-23] MEDS: Gabapentin 400 MG CAPSULE PO SCH ×3 (10:03→20:47)
[2021-10-23] MEDS: Aspirin Enteric Coated 81 MG Tablet PO SCH (10:03)
[2021-10-23] MEDS: *HR* LORazepam 1 MG TABLET PO SCH ×2 (10:03→20:47)
[2021-10-23] MEDS: Apixaban 5 MG TABLET PO SCH ×2 (10:03→20:47)
[2021-10-24] MEDS: Apixaban 5 MG TABLET PO SCH ×2 (08:11→21:08)
[2021-10-24] MEDS: lisinopriL 10 MG TABLET PO SCH (08:11)
[2021-10-24] MEDS: Gabapentin 400 MG CAPSULE PO SCH ×3 (08:11→21:09)
[2021-10-24] MEDS: Aspirin Enteric Coated 81 MG Tablet PO SCH (08:11)
[2021-10-24] MEDS: Topiramate 25 MG TABLET PO SCH (08:11)
[2021-10-24] MEDS: *HR* LORazepam 1 MG TABLET PO SCH ×2 (08:12→21:08)
[2021-10-24] MEDS: *HR* HYDROcodone/Acet 5/325 mg TABLET PO PRN ×2 (08:12→17:22)
[2021-10-25] MEDS: *HR* HYDROcodone/Acet 5/325 mg TABLET PO PRN ×3 (00:12→23:08)
[2021-10-25 02:42] LABS: Hematocrit 36.9 % (35.3-44.9); Hemoglobin 11.7 g/dL (11.5-15.4); Mean Corpuscular HGB Conc 31.7 g/dL (31.6-35.5); Mean Corpuscular Hemoglobin 32.1 pg (28.0-33.3); Mean Corpuscular Volume 101.1 fL (83.0-100.0); Platelet Count 354 K/mcL (140-400); Red Blood Count 3.65 M/mcL (3.82-4.97); Red Cell Distribution Width 14.1 % (11.5-14.5); White Blood Count 5.7 K/mcL (4.3-11.1)
[2021-10-25 02:57] LABS: BUN/Creatinine Ratio 19 (6-26); Blood Urea Nitrogen 10 mg/dL (8-23); Calcium 8.7 mg/dL (8.6-10.3); Carbon Dioxide 27 mEq/L (23-29); Chloride 102 mEq/L (98-107); Glucose 116 mg/dL (70-105); Osmolality,Calculated 272 (280-300); Potassium 3.8 mEq/L (3.5-5.1); Sodium 131 mEq/L (136-145); eGFR For African Americans > 60 (> 60); eGFR For Non-African Americans > 60 (> 60)
[2021-10-25] MEDS: Aspirin Enteric Coated 81 MG Tablet PO SCH (08:05)
[2021-10-25] MEDS: Apixaban 5 MG TABLET PO SCH ×2 (08:05→20:12)
[2021-10-25] MEDS: lisinopriL 10 MG TABLET PO SCH (08:05)
[2021-10-25] MEDS: Gabapentin 400 MG CAPSULE PO SCH ×3 (08:06→20:12)
[2021-10-25] MEDS: *HR* LORazepam 1 MG TABLET PO SCH ×2 (08:06→20:12)
[2021-10-25] MEDS: Topiramate 25 MG TABLET PO SCH (08:06)
[2021-10-25] MEDS ORDERED: Lidocaine/EPI 1:100k 1% 30 ML VIAL ONE (12:28)
[2021-10-25] MEDS ORDERED: Famotidine 20 MG/2 ML VIAL IVP ONE (12:54)
[2021-10-25] MEDS ORDERED: *HR* FentaNYL (PF) 100 MCG/2 ML VIAL ONE (13:02)
[2021-10-25] MEDS ORDERED: Ondansetron 4 MG/2 ML VIAL ONE (13:02)
[2021-10-25] MEDS ORDERED: *HR* Midazolam HCl 2 MG/2 ML VIAL ONE (13:02)
[2021-10-25] MEDS ORDERED: *HR* Propofol 200 MG/20 ML VIAL IVP ONE (13:03)
[2021-10-25] MEDS ORDERED: CeFAZolin Syr 2,000MG/20 ML 2,000 MG/20 ML SYRINGE IVPB ONE (13:06)
[2021-10-25] MEDS ORDERED: Ringers Solution, Lactated 1,000 ML IVC SCH (13:15)
[2021-10-25] MEDS ORDERED: ROPIVACAINE/PF/NS 0.25% 1 EACH SYRINGE INTRAART ONE (13:29)
[2021-10-25] MEDS ORDERED: Ropivacaine/PF 0.5% 30 ML VIAL ONE (13:29)
[2021-10-25] MEDS ORDERED: Ondansetron 4 MG/2 ML VIAL IVP PRN ×2 (13:45→18:49)
[2021-10-25] MEDS ORDERED: *HR* Labetalol 20 MG/4 ML SYRINGE IVP PRN (13:45)
[2021-10-25] MEDS ORDERED: Ipratropium Neb 0.5 MG NEBULIZER IH PRN (13:45)
[2021-10-25] MEDS ORDERED: *HR* OxyCODONE Immed Rel 5 MG TABLET PO PRN (13:45)
[2021-10-25] MEDS ORDERED: *HR* HYDROmorphone PF 0.5 MG/0.5 ML SYRINGE IVP PRN (13:45)
[2021-10-25] MEDS ORDERED: Nitroglycerin 0.4 MG TAB.SUBL SL PRN (18:49)
[2021-10-25] MEDS ORDERED: SUMAtriptan succinate 25 MG TABLET PO PRN (18:49)
[2021-10-25] MEDS ORDERED: Melatonin 3 MG TABLET PO PRN (18:49)
[2021-10-25] MEDS ORDERED: Naloxone 0.4 MG/ML INJ IVP PRN (18:49)
[2021-10-25] MEDS ORDERED: hydrOXYzine pamoate 25 MG CAPSULE PO PRN (18:55)
[2021-10-25] MEDS: Ringers Solution, Lactated 1,000 ML IVC SCH (20:12)
[2021-10-25 23:14] LABS: Hematocrit 38.1 % (35.3-44.9); Hemoglobin 12.2 g/dL (11.5-15.4)
[2021-10-25] MEDS: ceFAZolin 2,000 MG in 0.9 % Sodium Chloride 100 ML IVPB SCH (23:17)
[2021-10-25 23:23] LABS: INR 1.3
[2021-10-25 23:26] LABS: Activated Partial Thrombo Time 36.4 Seconds (26.0-36.0)
[2021-10-25] MEDS ORDERED: *HR* Metoprolol 5 MG/5 ML VIAL IVP ONE (23:58)
[2021-10-26] MEDS: *HR* HYDROcodone/Acet 5/325 mg TABLET PO PRN (05:18)
[2021-10-26 05:25] LABS: Hematocrit 35.3 % (35.3-44.9); Hemoglobin 11.4 g/dL (11.5-15.4); Mean Corpuscular HGB Conc 32.3 g/dL (31.6-35.5); Mean Corpuscular Hemoglobin 32.7 pg (28.0-33.3); Mean Corpuscular Volume 101.1 fL (83.0-100.0); Mean Platelet Volume 8.9 fL (9.4-12.4); Platelet Count 329 K/mcL (140-400); Red Blood Count 3.49 M/mcL (3.82-4.97); Red Cell Distribution Width 13.6 % (11.5-14.5)
[2021-10-26 05:28] LABS: White Blood Count 12.1 K/mcL (4.3-11.1)
[2021-10-26 05:44] LABS: BUN/Creatinine Ratio 19 (6-26); Blood Urea Nitrogen 10 mg/dL (8-23); Calcium 8.4 mg/dL (8.6-10.3); Carbon Dioxide 25 mEq/L (23-29); Chloride 105 mEq/L (98-107); Glucose 145 mg/dL (70-105); Osmolality,Calculated 278 (280-300); Sodium 133 mEq/L (136-145); eGFR For African Americans > 60 (> 60); eGFR For Non-African Americans > 60 (> 60)
[2021-10-26] MEDS ORDERED: *HR* HYDROcodone/Acet 5/325 mg TABLET PO ONE (05:55)
[2021-10-26] MEDS: Gabapentin 400 MG CAPSULE PO SCH ×3 (08:22→20:43)
[2021-10-26] MEDS: *HR* LORazepam 1 MG TABLET PO SCH ×2 (08:23→20:43)
[2021-10-26] MEDS: lisinopriL 10 MG TABLET PO SCH (08:24)
[2021-10-26] MEDS: Topiramate 25 MG TABLET PO SCH (08:24)
[2021-10-26] MEDS: ceFAZolin 2,000 MG in 0.9 % Sodium Chloride 100 ML IVPB SCH (08:55)
[2021-10-26] MEDS ORDERED: Mag Hydrox/Al Hydrox/Simeth 30 ML UDC PO PRN (08:56)
[2021-10-26] MEDS ORDERED: Aspirin Enteric Coated 81 MG Tablet PO SCH (09:00)
[2021-10-26] MEDS ORDERED: *HR* Labetalol 20 MG/4 ML SYRINGE IVP PRN ×2 (11:26→17:39)
[2021-10-26] MEDS: *HR* HYDROmorphone (PF) 1 MG/ML SYRINGE IVP PRN ×2 (13:01→20:42)
[2021-10-26] MEDS ORDERED: *HR* FentaNYL (PF) 100 MCG/2 ML VIAL ONE (15:00)
[2021-10-26] MEDS ORDERED: Ondansetron 4 MG/2 ML VIAL ONE (15:00)
[2021-10-26] MEDS ORDERED: *HR* Midazolam HCl 2 MG/2 ML VIAL ONE (15:00)
[2021-10-26] MEDS ORDERED: Lidocaine -MPF 2% 5 ML VIAL ONE (15:00)
[2021-10-26] MEDS ORDERED: *HR* Propofol 200 MG/20 ML VIAL IVP ONE (15:01)
[2021-10-26] MEDS ORDERED: Famotidine 20 MG/2 ML VIAL IVP ONE (15:37)
[2021-10-26] MEDS ORDERED: *HR* Metoprolol 5 MG/5 ML VIAL IVP PRN (17:39)
[2021-10-26] MEDS ORDERED: Ondansetron 4 MG/2 ML VIAL IVP PRN (17:39)
[2021-10-26] MEDS ORDERED: *HR* HYDROmorphone PF 0.5 MG/0.5 ML SYRINGE IVP PRN (17:39)
[2021-10-26] MEDS ORDERED: *HR* OxyCODONE Immed Rel 5 MG TABLET PO PRN (17:39)
[2021-10-26] MEDS ORDERED: *HR* HYDROMORPHONE 2 MG/ML VIAL ONE (17:57)
[2021-10-26] MEDS ORDERED: Ringers Solution, Lactated 250 ML IVC PRN (18:19)
[2021-10-26] MEDS ORDERED: Ringers Solution, Lactated 250 ML IV PRN (18:45)
[2021-10-26] MEDS: Ringers Solution, Lactated 1,000 ML IVC SCH (20:42)
[2021-10-26] MEDS: Apixaban 5 MG TABLET PO SCH (20:45)
[2021-10-26] MEDS: CeFAZolin 2,000 MG/120 ML BAG IVPB SCH (22:28)
[2021-10-27] MEDS: CeFAZolin 2,000 MG/120 ML BAG IVPB SCH ×3 (05:27→21:06)
[2021-10-27] MEDS: *HR* HYDROmorphone (PF) 1 MG/ML SYRINGE IVP PRN ×3 (05:27→21:05)
[2021-10-27 05:44] LABS: Hematocrit 30.8 % (35.3-44.9); Hemoglobin 9.9 g/dL (11.5-15.4); Mean Corpuscular HGB Conc 32.1 g/dL (31.6-35.5); Mean Corpuscular Hemoglobin 31.9 pg (28.0-33.3); Mean Corpuscular Volume 99.4 fL (83.0-100.0); Mean Platelet Volume 9.3 fL (9.4-12.4); Platelet Count 277 K/mcL (140-400); Red Cell Distribution Width 13.9 % (11.5-14.5); White Blood Count 9.9 K/mcL (4.3-11.1)
[2021-10-27 05:52] LABS: BUN/Creatinine Ratio 19 (6-26); Blood Urea Nitrogen 12 mg/dL (8-23); Calcium 8.1 mg/dL (8.6-10.3); Carbon Dioxide 25 mEq/L (23-29); Chloride 107 mEq/L (98-107); Glucose 94 mg/dL (70-105); Osmolality,Calculated 278 (280-300); Potassium 4.3 mEq/L (3.5-5.1); Sodium 134 mEq/L (136-145); eGFR For African Americans > 60 (> 60); eGFR For Non-African Americans > 60 (> 60)
[2021-10-27] MEDS: Gabapentin 400 MG CAPSULE PO SCH ×3 (07:56→21:05)
[2021-10-27] MEDS: Topiramate 25 MG TABLET PO SCH (07:56)
[2021-10-27] MEDS: lisinopriL 10 MG TABLET PO SCH (07:56)
[2021-10-27] MEDS: *HR* LORazepam 1 MG TABLET PO SCH ×2 (07:56→21:05)
[2021-10-27] MEDS: amLODIPine 5 MG TABLET PO SCH (14:49)
[2021-10-27] MEDS: Cholecalciferol (D-3) 1,000 UNIT (25MCG) TABLET PO SCH (14:49)
[2021-10-27] MEDS: Ringers Solution, Lactated 1,000 ML IVC SCH (15:38)
[2021-10-28] MEDS: *HR* HYDROmorphone (PF) 1 MG/ML SYRINGE IVP PRN (03:47)
[2021-10-28] MEDS: CeFAZolin 2,000 MG/120 ML BAG IVPB SCH ×3 (05:01→21:32)
[2021-10-28 09:59] LABS: Hematocrit 33.1 % (35.3-44.9); Hemoglobin 10.3 g/dL (11.5-15.4); Mean Corpuscular HGB Conc 31.1 g/dL (31.6-35.5); Mean Corpuscular Hemoglobin 31.9 pg (28.0-33.3); Mean Corpuscular Volume 102.5 fL (83.0-100.0); Mean Platelet Volume 9.1 fL (9.4-12.4); Platelet Count 307 K/mcL (140-400); Red Blood Count 3.23 M/mcL (3.82-4.97); Red Cell Distribution Width 13.9 % (11.5-14.5); White Blood Count 7.7 K/mcL (4.3-11.1)
[2021-10-28] MEDS: Cholecalciferol (D-3) 1,000 UNIT (25MCG) TABLET PO SCH (10:17)
[2021-10-28] MEDS: Gabapentin 400 MG CAPSULE PO SCH ×3 (10:17→21:30)
[2021-10-28] MEDS: Topiramate 25 MG TABLET PO SCH (10:17)
[2021-10-28 10:19] LABS: BUN/Creatinine Ratio 18 (6-26); Blood Urea Nitrogen 10 mg/dL (8-23); Calcium 8.7 mg/dL (8.6-10.3); Carbon Dioxide 27 mEq/L (23-29); Chloride 103 mEq/L (98-107); Glucose 120 mg/dL (70-105); Osmolality,Calculated 282 (280-300); Potassium 3.7 mEq/L (3.5-5.1); Sodium 136 mEq/L (136-145); eGFR For African Americans > 60 (> 60); eGFR For Non-African Americans > 60 (> 60)
[2021-10-28] MEDS: amLODIPine 5 MG TABLET PO SCH (10:19)
[2021-10-28] MEDS: lisinopriL 10 MG TABLET PO SCH (10:20)
[2021-10-28] MEDS: *HR* LORazepam 1 MG TABLET PO SCH ×2 (10:21→21:30)
[2021-10-28] MEDS ORDERED: *HR* HYDROmorphone (PF) 1 MG/ML SYRINGE IVP PRN (11:29)
[2021-10-28] MEDS: Sennosides/Docusate Sodium TABLET PO SCH ×2 (14:14→21:30)
[2021-10-28] MEDS: Metoprolol XL (24 HR) Succ 25 MG TAB.ER.24H PO SCH (14:38)
[2021-10-28] MEDS: Ringers Solution, Lactated 1,000 ML IVC SCH (19:51)
[2021-10-28] MEDS: Apixaban 5 MG TABLET PO SCH (21:30)
[2021-10-29 04:43] LABS: Hematocrit 27.5 % (35.3-44.9); Hemoglobin 8.9 g/dL (11.5-15.4); Mean Corpuscular HGB Conc 32.4 g/dL (31.6-35.5); Mean Corpuscular Hemoglobin 33.2 pg (28.0-33.3); Mean Corpuscular Volume 102.6 fL (83.0-100.0); Mean Platelet Volume 9.2 fL (9.4-12.4); Platelet Count 301 K/mcL (140-400); Red Blood Count 2.68 M/mcL (3.82-4.97); Red Cell Distribution Width 13.7 % (11.5-14.5); White Blood Count 7.9 K/mcL (4.3-11.1)
[2021-10-29 05:03] LABS: BUN/Creatinine Ratio 20 (6-26); Blood Urea Nitrogen 11 mg/dL (8-23); Calcium 8.4 mg/dL (8.6-10.3); Carbon Dioxide 27 mEq/L (23-29); Chloride 104 mEq/L (98-107); Glucose 117 mg/dL (70-105); Osmolality,Calculated 280 (280-300); Potassium 3.6 mEq/L (3.5-5.1); Sodium 135 mEq/L (136-145); eGFR For African Americans > 60 (> 60); eGFR For Non-African Americans > 60 (> 60)
[2021-10-29] MEDS: CeFAZolin 2,000 MG/120 ML BAG IVPB SCH ×2 (05:06→14:06)
[2021-10-29] MEDS: Cholecalciferol (D-3) 1,000 UNIT (25MCG) TABLET PO SCH (10:02)
[2021-10-29] MEDS: Gabapentin 400 MG CAPSULE PO SCH ×2 (10:03→15:15)
[2021-10-29] MEDS: Sennosides/Docusate Sodium TABLET PO SCH (10:03)
[2021-10-29] MEDS: Metoprolol XL (24 HR) Succ 25 MG TAB.ER.24H PO SCH (10:03)
[2021-10-29] MEDS: *HR* LORazepam 1 MG TABLET PO SCH (10:04)
[2021-10-29] MEDS: lisinopriL 10 MG TABLET PO SCH (10:04)
[2021-10-29] MEDS: Topiramate 25 MG TABLET PO SCH (10:04)
[2021-10-29] MEDS: Apixaban 5 MG TABLET PO SCH (10:04)
[2021-10-29 11:03] LABS: Influenza A PCR Negative (Negative); Influenza B PCR Negative (Negative); Resp. Syncytial Virus PCR Negative (Negative); SARS-CoV-2 by PCR (In House) Negative (Negative)
[2021-10-29 11:14] VITALS: BP 124/85; PULSE 103; TEMP 98.5; O2SAT 96
== END 2021-10-29 15:53 | DRG 511 ==
LOC: 3BNU 12:55 → EMEROOARM 12:55 → SUATTDRO 19:42 → 3BNU 21:09
PROVIDERS: ADMIT Internal Medicine; ATTEND Internal Medicine